=== PATIENT | female | born 1955 | race Caucasian/White ===

== ENCOUNTER 2017-01-29 18:06 | Emergency (ER) | payer BC ==
[~2017-01-29] VITALS: Ht 167.6 cm; Wt 99.8 kg
[2017-01-29] MEDS ORDERED: NAPR375T3 (18:45)
[2017-01-29] MEDS ORDERED: OXYB5TAB9 (18:45)
[2017-01-29] MEDS ORDERED: PANT40TA3 (18:45)
--- NOTE | 2017-01-29 19:57 | ED Lower Extremity ---
General Chief Complaint: Lower Extremity Stated Complaint: L KNEE WEAKNESS/PAIN Nursing Triage Note: TO ED PER W/C FOR LAST 2 DAYS HAS HAD KNEE PAIN L TODAY GOT OUT OF CHAIR AND FELT A POP IN KNEE PAINFUL TO PUT WT ON IT. Nursing Sepsis Screen: No Definite Risk Source: patient Exam Limitations: no limitations (Stat echo) History of Present Illness Time seen by provider: 19:56 Initial Comments Pain and popping sensation to the left knee for the past 2 days worse than usual. Has seen Dr. Escalera at [facility] [address] [place] [address] for this remotely.. No injury. Onset: just prior to arrival Severity: moderate Pain/Injury Location: left knee Modifying Factors: Worse With Movement Allergies and Home Medications Allergies Coded Allergies: No Known Drug Allergies (Unverified , 01/29/17) Home Medications Naproxen 375 Mg Tablet, #60 (Reported) Oxybutynin Chloride 5 Mg Tablet, #60 (Reported) Pantoprazole Sodium 40 Mg Tablet.dr, #30 (Reported) Constitutional: see HPI EENTM: see HPI Respiratory: no symptoms reported Cardiovascular: no symptoms reported Genitourinary: no symptoms reported Musculoskeletal: see HPI Skin: no symptoms reported Psychiatric/Neurological: No Symptoms Reported Past Xkehwvm-Ajtcbc-Bpezwt Hx Patient Social History Alcohol Use: Denies Use Recreational Drug Use: No Smoking Status: Never a Smoker Recent Foreign Travel: No Contact w/Someone Who Travel: No Recent Infectious Disease Expo: No Seasonal Allergies Seasonal Allergies: No Surgeries Surgeries: Hysterectomy, Orthopedic Physical Exam Vital Signs Vital Sign - Last 12Hours 01/29/17 18:27 Temp 98.2 Pulse 89 Resp 18 B/P (MAP) 176/101 Pulse Ox 98 O2 Delivery Room Air Capillary Refill : Less Than 3 Seconds General Appearance: WD/WN, no apparent distress HEENT: PERRL/EOMI, normal ENT inspection Neck: non-tender, full range of motion Respiratory: no respiratory distress, no accessory muscle use Gastrointestinal: normal bowel sounds, non tender, soft Hips: bilateral hip non-tender, bilateral hip normal inspection, bilateral hip normal range of motion Legs: bilateral leg non-tender, bilateral leg normal inspection, bilateral leg normal range of motion Knees: left knee pain, left knee other (no swelling or erythema.) Ankles: bilateral ankle non-tender, bilateral ankle normal inspection, bilateral ankle normal range of motion Neurologic/Psychiatric: alert, normal mood/affect, oriented x 3 Skin: normal color, warm/dry Progress/Results/Core Measures Results/Orders My Orders Orders - GABE MOCK APRN Knee, Left, 3 Views (01/29/17 18:56) Us Venous Lower Ext Lt (01/29/17 19:57) Immobilizer Knee St 24 In (01/29/17 20:42) Vital Signs/I&O Vital Sign - Last 12Hours 01/29/17 18:27 Temp 98.2 Pulse 89 Resp 18 B/P (MAP) 176/101 Pulse Ox 98 O2 Delivery Room Air Blood Pressure Mean: 126 Diagnostic Imaging Diagonstic Imaging: Xray Comments NAME: [facility] REC#: [id number] PT STATUS: REG ER : 1955 PHYSICIAN: GABE MOCK APRN ADMIT DATE: 01/29/17/ER Draft Date of Exam:01/29/17 KNEE, LEFT, 3 VIEWS Indication: Patient felt a "pop" in the left knee. Findings: Three views of the left knee demonstrate no fracture, dislocation or joint effusion. Osteophytes are present in all 3 compartments with joint space narrowing in the medial compartment. There appears to be a small cortical defect in the femoral condyle, best seen on the lateral view. This is probably within the medial condyle. Impression: There are degenerative changes of the left knee but no acute findings. A cortical defect is present in the femoral condyle. Dictated on workstation # [id number] Dict: 01/29/171946 Trans: 01/29/171953 [facility] [id number] Interpreted by: TESSA SHIRLEY MD Electronically signed by: Departure Impression Impression: Primary Impression: Internal derangement of left knee Disposition: 01 HOME, SELF-CARE Condition: Stable Departure-Patient Inst. Decision time for Depature: 19:58 Referrals: NO,LOCAL PHYSICIAN (PCP/Family) Primary Care Physician Patient Instructions: Chronic Knee Pain, Knee Immobilizer (DC), Knee Pain Add. Discharge Instructions: 1. Call Dr. Escalera tomorrow to make an appointment to be seen by either him or a nurse practitioner for further evaluation of your knee as this may require an MRI. Wear the knee immobilizer anytime you're up moving around. All discharge instructions reviewed with patient and/or family. Voiced understanding. Scripts Hydrocodone/Acetaminophen ([place]ander 5-325 Tablet) 1 Each Tablet 1 EACH PO Q4H, #20 TAB Prov: GABE MOCK APRN 01/29/17 Copy Copies To 1: ADRIANA ESCALERA PETER J APRN January 29, 2017 19:57
[2017-01-29] MEDS ORDERED: HYDR-757 PO (20:51)
[2017-01-29] MEDS ORDERED: HYDROcodone/APAP 5 MG/325 MG (LORTAB) TAB PO ONE (21:00)
--- NOTE | 2017-01-29 21:05 | Diagnostic Imaging Report ---
PROCEDURE: US left lower extremity venous. TECHNIQUE: Multiple real-time grayscale images were obtained over the left lower extremity in various projections. Additional duplex Doppler and color Doppler images were also obtained. INDICATION: Left lower extremity pain. Patient reportedly had a DVT 10 years ago. COMPARISON STUDIES: None. FINDINGS: Exam demonstrates no evidence of a DVT. Greater saphenous vein is patent. No fluid collections are seen. IMPRESSION: Negative left lower extremity venous Doppler. Dictated by: Dictated on workstation # [id number]
[2017-01-29 21:18] VITALS: BP 169/99
== END 2017-01-29 21:18 | disposition home or self-care (01) ==
LOC: EDUNIT# 18:06 → ER 18:09
DX: M23.92 Unspecified internal derangement of left knee (principal); M17.12 Unilateral primary osteoarthritis, left knee
CPT/HCPCS: 73562; 99283

== ENCOUNTER → 2017-04-08 | Outpatient (CLI) | payer BC ==
[~2017-04-08] MED LIST: HYDR-757 PO; NAPR375T3; OXYB5TAB9; PANT40TA3
[2017-04-08 15:02] LABS: BASOPHILS % (AUTO) 1 % (0-10); EOSINOPHILS # (AUTO) 0.2 10^3/uL (0.0-0.3); EOSINOPHILS % (AUTO) 4 % (0-10); LYMPHOCYTES # (AUTO) 2.4 X 10^3 (1.0-4.0); LYMPHOCYTES % (AUTO) 39 % (12-44); MEAN CORPUSCULAR HEMOGLOBIN 32 PG (25-34); MEAN CORPUSCULAR HGB CONC 34 G/DL (32-36); MEAN CORPUSCULAR VOLUME 96 FL (80-99); MEAN PLATELET VOLUME 10.8 FL (7.4-10.4); MONOCYTES # (AUTO) 0.4 X 10^3 (0.0-1.0); MONOCYTES % (AUTO) 7 % (0-12); NEUTROPHILS % (AUTO) 50 % (42-75); PLATELET COUNT 207 10^3/uL (130-400); RED BLOOD COUNT 4.32 10^6/uL (4.35-5.85); RED CELL DISTRIBUTION WIDTH 12.5 % (10.0-14.5)
[2017-04-08 15:24] LABS: ALANINE AMINOTRANSFERASE 13 U/L (0-55); ANION GAP 9 MMOL/L (5-14); ASPARTATE AMINO TRANSFERASE 16 U/L (5-34); BILIRUBIN,TOTAL 0.8 MG/DL (0.1-1.0); BLOOD UREA NITROGEN 20 MG/DL (7-18); BUN/CREATININE RATIO 28; CALCIUM 9.3 MG/DL (8.5-10.1); CARBON DIOXIDE 23 MMOL/L (21-32); CHLORIDE 108 MMOL/L (98-107); CREATININE SERUM 0.72 MG/DL (0.60-1.30); GFR ESTIMATED > 60; GLUCOSE 85 MG/DL (70-105); POTASSIUM 3.8 MMOL/L (3.6-5.0); SODIUM 140 MMOL/L (135-145)
[2017-04-09 12:25] LABS: FACTOR 5 (LEIDEN) MUTATION Heterozygous (Negative)
[2017-04-09 13:58] LABS: VON WILLEBRAND FACTOR ANTIGEN 130 % (50-160)
[2017-04-09 13:59] LABS: FACTOR 5 LEIDEN INTERP See Footnote
== END ==
LOC: LAB 14:39
PROVIDERS: ATTEND Nurse Practitioner Family
DX: Z01.812 Encounter for preprocedural laboratory examination (principal); Z86.718 Personal history of other venous thrombosis and embolism
CPT/HCPCS: 36415; 80053; 81241; 85025; 85246; 85302; 85305

== ENCOUNTER 2017-05-16 11:37 | Outpatient (CLI) | payer BC, OTHER ==
[~2017-05-16] VITALS: Ht 167.6 cm; Wt 98.9 kg
[~2017-05-16 11:37] MED LIST changes: -NAPR375T3; +NAPR375T3 PO; -OXYB5TAB9; +OXYB5TAB9 PO; -PANT40TA3; +PANT40TA3 PO
[2017-05-16 11:45] VITALS: BP 134/90
[2017-05-16] MEDS ORDERED: ENOX40DI13 SQ (11:48)
[2017-05-16 12:28] LABS: BASOPHILS # (AUTO) 0.1 10^3/uL (0.0-0.1); BASOPHILS % (AUTO) 1 % (0-10); EOSINOPHILS # (AUTO) 0.2 10^3/uL (0.0-0.3); EOSINOPHILS % (AUTO) 3 % (0-10); LYMPHOCYTES # (AUTO) 2.2 X 10^3 (1.0-4.0); LYMPHOCYTES % (AUTO) 39 % (12-44); MEAN CORPUSCULAR HEMOGLOBIN 33 PG (25-34); MEAN CORPUSCULAR HGB CONC 35 G/DL (32-36); MEAN CORPUSCULAR VOLUME 96 FL (80-99); MEAN PLATELET VOLUME 10.8 FL (7.4-10.4); MONOCYTES # (AUTO) 0.4 X 10^3 (0.0-1.0); MONOCYTES % (AUTO) 8 % (0-12); NEUTROPHILS # (AUTO) 2.8 X 10^3 (1.8-7.8); NEUTROPHILS % (AUTO) 49 % (42-75); PLATELET COUNT 204 10^3/uL (130-400); RED BLOOD COUNT 4.32 10^6/uL (4.35-5.85); RED CELL DISTRIBUTION WIDTH 12.3 % (10.0-14.5); WHITE BLOOD COUNT 5.6 10^3/uL (4.3-11.0)
[2017-05-16 12:32] LABS: BILIRUBIN,URINE NEGATIVE (NEGATIVE); KETONES,URINE NEGATIVE (NEGATIVE); LEUKOCYTE ESTERASE ,URINE 1+ (NEGATIVE); NITRITE,URINE POSITIVE (NEGATIVE); PH,URINE 6 (5-9); PROTEIN,URINE NEGATIVE (NEGATIVE); UROBILINOGEN,URINE NORMAL (NORMAL)
[2017-05-16 12:43] LABS: INR 0.9 (0.8-1.4); PROTHROMBIN TIME PATIENT 12.5 SEC (12.2-14.7)
[2017-05-16 12:53] LABS: ALANINE AMINOTRANSFERASE 13 U/L (0-55); ANION GAP 7 MMOL/L (5-14); ASPARTATE AMINO TRANSFERASE 15 U/L (5-34); BILIRUBIN,TOTAL 0.6 MG/DL (0.1-1.0); BLOOD UREA NITROGEN 19 MG/DL (7-18); BUN/CREATININE RATIO 23; CALCIUM 9.2 MG/DL (8.5-10.1); CARBON DIOXIDE 28 MMOL/L (21-32); CHLORIDE 105 MMOL/L (98-107); CREATININE SERUM 0.81 MG/DL (0.60-1.30); GFR ESTIMATED > 60; GLUCOSE 100 MG/DL (70-105); POTASSIUM 3.7 MMOL/L (3.6-5.0); SODIUM 140 MMOL/L (135-145); TOTAL PROTEIN 7.1 GM/DL (6.4-8.2)
--- NOTE | 2017-05-16 13:01 | Diagnostic Imaging Report ---
PA and lateral views of the chest Indication: Preoperative evaluation Findings: The lungs are clear. The heart size is normal. There is no effusion or pneumothorax The mediastinum and araceli appear unremarkable. Impression: Unremarkable study. Dictated by: Dictated on workstation # [id number]
[2017-05-16 13:03] LABS: ERYTHROCYTE SEDIMENTATION RATE 7 MM/HR (0-30)
== END 2017-05-16 12:30 | disposition home or self-care (01) ==
LOC: PREOP 11:37
PROVIDERS: ATTEND Orthopaedic Surgery
DX: Z01.812 Encounter for preprocedural laboratory examination (principal); Z01.811 Encounter for preprocedural respiratory examination; M17.12 Unilateral primary osteoarthritis, left knee; R53.83 Other fatigue
CPT/HCPCS: 36415; 71020; 80053; 81000; 85025; 85610; 85652; 86850; 86870; 86900; 86901; 87081; 87088; 93005

== ENCOUNTER 2017-05-22 06:00 | Inpatient (IN) | payer BC, OTHER ==
--- NOTE | 2017-05-14 13:25 | HISTORY AND PHYSICAL ---
DATE OF SERVICE: LAST-FOUR SOCIAL SECURITY: 4636 REASON FOR ADMISSION: Inpatient admission on 05/22/2017 left total knee arthroplasty. HISTORY OF PRESENT ILLNESS: The patient is a 62-year-old female with progressive worsening left knee pain. She reports activity limitations because of the knee. She denies back pain. She denies hip pain. She denies paresthesias due to functional impairment and failure to improve with conservative measures. The patient has elected to proceed with surgical intervention. REVIEW OF SYSTEMS: No chest pain, no shortness of breath, no dysuria. PAST MEDICAL HISTORY: 1. Blood clots. 2. Reflux. 3. Knee pain. PAST SURGICAL HISTORY: 1. Left fifth finger pinning with partial amputation. 2. Hysterectomy. FAMILY HISTORY: Significant for lung cancer. PRIMARY CARE PROVIDER: Dr. Monson. MEDICATIONS: 1. Pantoprazole. 2. Oxybutynin. 3. Naprosyn. ALLERGIES: No known allergies. SOCIAL HISTORY: The patient denies alcohol and tobacco use. PHYSICAL EXAMINATION: GENERAL: The patient is a well developed, well nourished, in no acute distress. HEENT: Normocephalic, atraumatic. Pupils are equal, round and reactive to light. Oropharynx is clear. NECK: Supple, no lymphadenopathy. LUNGS: Clear to auscultation bilaterally. HEART: Regular rate and rhythm. ABDOMEN: Soft, nontender and nondistended. EXTREMITIES: The left knee demonstrates range of motion 0/3/125. There is no varus, valgus laxity and negative anterior and posterior drawer. There are no skin lesions noted. She needs assistance to arise from seated position. She is ambulatory with an antalgic gait. IMPRESSION: Left knee osteoarthritis. PLAN: Left total knee arthroplasty. The risks, benefits, options, ramifications and recovery have been discussed at length with the patient. She understands and wishes to proceed. Job ID: [id number] DocumentID: [id number] Dictated Date: 05/14/2017 11:54:13 Rn Clinical Research Date: 05/14/2017 12:50:09 Dictated By: NIALL WEBER MD
[~2017-05-22] VITALS: Ht 167.6 cm; Wt 98.9 kg
[~2017-05-22 06:00] MED LIST changes: +ENOX40DI13 SQ
[2017-05-22] MEDS ORDERED: NS (IVPB) 50 ML ONE (06:34)
[2017-05-22] MEDS ORDERED: CEFUROXIME 1.5 GM (ZINACEF) VIAL ONE (06:34)
[2017-05-22] MEDS ORDERED: FAMOTIDINE 20MG/2ML IV (PEPCID) ONE (06:34)
[2017-05-22] MEDS ORDERED: FAMOTIDINE 20MG/2ML IV (PEPCID) IV ONE (06:45)
[2017-05-22] MEDS: LACTATED RINGERS 1,000 ML IV PRN ×2 (06:51→08:45)
[2017-05-22] MEDS ORDERED: SEVOFLURANE (ULTANE) 15 ML INHAL SOLN ONE ×6 (06:53→08:51)
[2017-05-22] MEDS ORDERED: proPOfol 200 MG/20 ML (DIPRIVAN) VIAL IV ONE (06:53)
[2017-05-22] MEDS ORDERED: ROCURONIUM 50 MG/5 ML (ZEMURON) VIAL IV ONE (06:53)
[2017-05-22] MEDS ORDERED: MIDAZOLAM 2 MG/2 ML (VERSED) VIAL ONE (06:53)
[2017-05-22] MEDS ORDERED: LIDOCAINE PF 2% 5 ML (XYLOCAINE) VIAL ONE (06:53)
[2017-05-22] MEDS ORDERED: LACTATED RINGERS 1,000 ML IV ONE ×2 (06:53→08:51)
[2017-05-22] MEDS ORDERED: ONDANSETRON 4 MG/2 ML (SDV) Z0FRAN ONE (06:53)
[2017-05-22] MEDS ORDERED: fentaNYL INJECTION 250 MCG/5 ML AMP ONE (06:54)
[2017-05-22 06:59] VITALS: BP 138/78
[2017-05-22] MEDS ORDERED: CEFUROXIME 1.5 GM/NS 50 ML IVPB IV ONE ×2 (07:00)
[2017-05-22] MEDS ORDERED: ACETAMINOPHEN 325 MG TABLET/CAPLET (TYLENOL) PO PRN (07:15)
[2017-05-22] MEDS ORDERED: ONDANSETRON 4 MG/2 ML (SDV) Z0FRAN IVP PRN ×2 (07:15→09:30)
[2017-05-22] MEDS ORDERED: diphenhydrAMINE 50 MG/ML INJ (BENADRYL) IVP PRN (07:15)
--- NOTE | 2017-05-22 07:25 | Progress Note-Pre Operative ---
Pre-Operative Progress Note H&P Reviewed The H&P was reviewed, patient examined and no changes noted. Date Seen by Provider: May 22, 2017 Time Seen by Provider: 07:15 Date H&P Reviewed: May 22, 2017 Time H&P Reviewed: 07:11 Pre-Operative Diagnosis: left knee primary osteoarthritis NIALL WEBER MD May 22, 2017 07:25
--- NOTE | 2017-05-22 07:26 | Progress Note-Post Operative ---
Post-Operative Progess Note Surgeon (s)/Shrimping Boat Captain (s) Surgeon NIALL WEBER MD Shrimping Boat Captain: blake Simons Pre-Operative Diagnosis left knee primary osteoarthritis Post-Operative Diagnosis left knee primary osteoarthritis Procedure & Operative Findings Date of Procedure 05/22/17 Procedure Performed/Findings left total knee arthroplasty Anesthesia Type GETA Estimated Blood Loss Estimated blood loss (mL): minimal Specimens/Packing Specimens Removed none Packing: none NIALL WEBER MD May 22, 2017 07:25
[2017-05-22] MEDS ORDERED: INTRA-ARTICULAR INJ ONE ×5 (07:30)
[2017-05-22] MEDS ORDERED: HYDROmorphone (DILAUDID) 2 MG/ML VIAL ONE (08:12)
[2017-05-22] MEDS ORDERED: morphine INJ 10 MG/ML 1ML (SYR OR VIAL) ONE ×2 (08:12→08:50)
[2017-05-22] MEDS: morphine INJ 10 MG/ML 1ML (SYR OR VIAL) IVP PRN ×2 (09:05→09:38)
[2017-05-22] MEDS ORDERED: HYDROmorphone (DILAUDID) 2 MG/ML VIAL IVP PRN (09:30)
[2017-05-22] MEDS ORDERED: MEPERIDINE (DEMEROL) INJ 50 MG/ML IVP PRN (09:30)
--- NOTE | 2017-05-22 10:02 | D/C HH Face to Face Order ---
D/C Face to Face Orders Instructions for Patient Patient Instructions/FollowUp: 3 weeks Physician to follow Patient: 3 weeks Discharge Diet for Home: Regular Diet Patient Data-Allergies,Ht & Wt Patient Allergies: Coded Allergies: No Known Drug Allergies (Unverified , 01/29/17) Height (Feet): 5 Height (Inches): 6.00 Weight (Pounds): 218 Weight (Ounces): 0.0 Home Health Need/Face to Face Date of Face to Face: May 22, 2017 Clinical Findings: Pain with ambulation I have seen Pt [id number]: Yes Discharged To: Home Diagnosis/Conditions: left total knee arthroplasty Problems/Diagnosis/Condition: Patient is Homebound due to: Pain w/ambulation Homebound Status Due to the above stated illness, injury or surgical procedure (medical condition or diagnosis) and associated clinical findings, the patient is homebound because of his/her inability to leave home except with aid of a supportive device and/or person AND leaving the home requires a considerable and taxing effort or is medically contraindicated. Pt req the following assistanc: Walker Home Health Nursing Orders Home Health Services Order: Physical Therapy-Evaluate & Treat Home Health Infusion Therapy Site Location: Wrist Therapy Orders Therapy Orders: Physical Therapy Therapy Specific Orders: Eval assistive deivces, Teach enviro modifications/ safety, Gait training, Increase strength/endurance, Restore ROM Certify Stmt I certify that this patient is under my care and that I, a nurse practitioner or a physician; a regulatory affairs assistant working with me, had a face to face encounter that - meets the physician face to face encounter requirements with this patient as dated. NIALL WEBER MD May 22, 2017 10:02
--- NOTE | 2017-05-22 10:35 | Diagnostic Imaging Report ---
INDICATION: Postoperative. TECHNIQUE: 2 post operative radiographs of the knee 9:35 AM CORRELATION STUDY: None FINDINGS: There are postsurgical changes of a total knee arthroplasty. Alignment is anatomic. Installed hardware appearing unremarkable. Overlying soft tissue gas collections and drainage tubing is present. IMPRESSION: Postsurgical changes of a left total knee arthroplasty. Dictated by: Dictated on workstation # [id number]
--- NOTE | 2017-05-22 10:54 | Progress Note-Standard ---
Standard Progress Note Progress Notes/Assess & Plan Date Seen by Provider: May 22, 2017 Time Seen by Provider: 10:52 Progress/Assessment & Plan Post op check Patient comfortable Radiographs HW well positioned without fracture LLE--intact DF and PF of toes and ankle. Sensation intact throughout. pulses equal with brisk cap refill s/p LTKA doing well mobilize as able NIALL WEBER MD May 22, 2017 10:54
[2017-05-22 12:00] VITALS: BP 122/72
[2017-05-22] MEDS: SENNA W/DOCUSATE (SENOKOT S) TABLET PO SCH ×2 (12:04→21:27)
[2017-05-22] MEDS: NS IV 1000 ML 1,000 ML IV SCH ×3 (12:29→23:40)
[2017-05-22] MEDS: morphine PCA 30 MG/30 ML VIAL IV PRN (12:30)
--- NOTE | 2017-05-22 14:25 | Physical Therapy Evaluation ---
PT Evaluation-General Medical Diagnosis Admission Date May 22, 2017 at 06:00 Medical Diagnosis: Left total knee arthroplasty Onset Date: May 22, 2017 Therapy Diagnosis Therapy Diagnosis: impaired mobility, endurance, ROM Height/Weight Height (Feet): 5 Height (Inches): 6.00 Weight (Pounds): 218 Weight (Ounces): 0.0 Precautions Precautions/Isolations: Fall Prevention, Standard Precautions Weight Bear Status Weight Bearing Restriction: Weight Bearing/Tolerated Location Restriction: L LE Referral Physician: Arben Simons APRN Reason for Referral: Evaluation/Treatment Medical History Additional Medical History Hx of blood clots, reflux, knee pain bilaterally L>R. Surgeries: Left fifth finger pinning and partial amputation, Hysterectomy Current History Pt underwent left TKA this morning for progressively worsening knee pain. Reviewed History: Yes Social History Home: Single Level Current Living Status: Alone Entry Into Home: Stairs With Railing PT Steps Into Home: 7 PT Steps Inside Home: 0 Pt has daughter who lives nearby and will assist with recovery. Prior/Core FIM Prior Level of Function Functional [place] Measure 0=Not Assessed/NA 4=Minimal Assistance 1=Total Assistance 5=Supervision or Setup 2=Maximal Assistance 6=Modified [place] 3=Moderate Assistance 7=Complete [place] Bed Mobility: 7 Transfers (B,C,W/C) (FIM): 7 Gait: 7 Locomotion: 7 PT Evaluation-Current Subjective Pt was laying in bed prior to tx and agreeable to PT. Pt reports no pain. Pt was lying in bed with CPM machine on, post tx with nurse call, phone, tray in reach, all needs met post tx. Pain Numeric Pain Scale: 0-No Pain Location: No Pain Reported Pt/Family Goals To return home with independence with mobility. Objective Patient Orientation: Normal For Age Attachments: IV ROM/Strength ROM Lower Extremities Left knee (80 degrees flexion, lacking 5 degrees of extension) Strenght Lower Extremities not tested due to surgery Integumentary/Posture Integumentary refer to nursing note Bowel Incontinence: No Bladder Incontinence: No Neuromuscular (Tone, Coordination, Reflexes) not tested Sensory Vision: Wears Glasses Hearing: Functional Sensation Right Lower Extremit: Intact Sensation Left Lower Extremity: Intact Sensation Lower Extremities Pt reports slight numbness and tingling throughout L LE but still has intact light touch Transfers Functional [place] Measure 0=Not Assessed/NA 4=Minimal Assistance 1=Total Assistance 5=Supervision or Setup 2=Maximal Assistance 6=Modified [place] 3=Moderate Assistance 7=Complete [place] Transfers (B, C, W/C) (FIM): 5 Scootin Rollin Supine to/from Sit: 5 Sit to/from Stand: 4 Pt completes bed mobility (scooting, rolling, supine<>sit) with stand by assist for safety. Pt completes sit<>stand with CGA for safety. Gait Mode of Locomotion: Walk Anticipated Mode of Locomotion: Walk Gait (FIM): 1 Distance (FIM): 1=up to 49 ft Distance: 15'x2 Gait Level of Assist: 4 Gait Persons Needed: 1 Gait Assistive Device: FWW Comments/Gait Description Pt ambulates with FWW and CGA for safety. Pt appears to be steady with gait. She does have pain with ambulation and has an antalgic gait with decreased knee flexion and heel strike. Stairs If not tested on admit;explain Unsafe to attempt Balance Sitting Static: Good Sitting Dynamic: Good Standing Static: Fair Standing Dynamic: Fair Treatment Pt completes bed mobility, transfers, and gait training. Pt was educated on WBS and expectations regarding her recovery. Pt completes supine exercises (SAQ, HS , AP, SLR, QS)x10 for functional LE strengthening and ROM. Pt was set up in CPM set to -2 degrees of extension and 60 degrees flexion, was instructed to stay in CPM for approximately 6 hours a day. Assessment/Needs Pt is doing well post-operatively. Pt has impairments with gait, transfers, bed mobility, and balance. Rehab Potential: Good PT Short Term Goals Short Term Goals Time Frame: May 29, 2017 Transfers (B,C,W/C) (FIM): 6 Gait (FIM): 5 Distance (FIM): 3=150 ft Gait Distance Comment: 150' Gait Level of Assist: 5 Gait Assistive Device: FWW PT Plan Problem List Problem List: Activity Tolerance, Functional Strength, Safety, Balance, Gait, Transfer, Bed Mobility, ROM Treatment/Plan Treatment Plan: Continue Plan of Care Treatment Plan: Bed Mobility, Education, Functional Activity Nella, Functional Strength, Gait, Safety, Therapeutic Exercise, Transfers Treatment Duration: May 29, 2017 Frequency: 11 times per week Estimated Hrs Per Day: .25 hour per day (15-30 min) Patient and/or Family Agrees t: Yes Safety Risks/Education Patient Education: Gait Training, Transfer Techniques, Reviewed Precautions, Correct Positioning, Safety Issues Teaching Recipient: Patient Teaching Methods: Demonstration, Discussion Response to Teaching: Verbalize Understanding, Reinforcement Needed Discharge Recommendations Plan Pt treatment will include therapeutic exercises to increase strength and ROM, bed mobility, transfer and gait training, and education on safety issues. Therapy D/C Recommendations: Home w/ Family Support Equpiment Recommendations-D/C: Front Wheeled Walker Time/GCodes Time In: 1350 Time Out: 1417 Total Billed Treatment Time: 27 Total Billed Treatment 1 visit EVL 15' GT 12' ASHA BAKER PT May 22, 2017 14:25
--- NOTE | 2017-05-22 15:14 | OPERATIVE REPORT ---
DATE OF SERVICE: 05/22/2017 PREOPERATIVE DIAGNOSIS: Left knee primary osteoarthritis. POSTOPERATIVE DIAGNOSIS: Left knee primary osteoarthritis. PROCEDURE: Left total knee arthroplasty. SURGEON: Dr. Weber. SENIOR UI DESIGNER: JEFERSON Rose, who assisted throughout the procedure and closed the incision. ANESTHESIA: General endotracheal by Jorge Luis , DAR. TOURNIQUET TIME: Approximately 70 minutes at 300 mmHg. ESTIMATED BLOOD LOSS: Minimal. DRAINS: None. COMPLICATIONS: None. POSTOPERATIVE PLAN: Retained protocol. MATERIALS: MicroPort, cemented size 5 femur, cemented size 5 tibia with a 10-mm insert and cemented size 32 patella button. The patient was transported to the recovery room, awake and in stable condition. STATEMENT OF MEDICAL NECESSITY: The patient is a 62-year-old female with longstanding progressive left knee pain. Radiographs reveal complete loss of medial and patella femoral joint spaces. She had undergone treatment with injections, anti-inflammatories and rest without relief and due to functional impairment with progressive symptoms the patient elected to proceed with surgical intervention. PROCEDURE: After risks and benefits of the procedure were discussed and questions were answered and informed consent was signed and placed on the chart, the operative site was confirmed in the preoperative holding area and initialed by the surgeon. The patient was then transported to the operating room and after adequate levels of general endotracheal anesthetic were obtained, a timeout was called confirming the operative site. The left lower extremity was then prepped and draped in the usual sterile fashion with the leg elevated. The tourniquet was inflated to 300 mmHg. A standard anterior approach was utilized. Hemostasis was obtained with cautery. A medial parapatellar arthrotomy was performed leaving a 1 cm cuff for later reattachment. A portion of the fat pad was resected. A subperiosteal release was performed of the proximal media tibia being careful to stay on the bony surface. The ACL was resected. The intramedullary guide was passed into the femur. The distal cutting block was placed and the distal cut was made. The femur was sized to a size 5. The 5 cutting block was placed parallel to the epicondylar axis and cuts were made from posterior to anterior. The subperiosteal release was then carefully performed of the posterior distal femur being careful to stay on the bony surface. An intramedullary guide was then passed into the tibia. The cutting block was placed. The drop severino transected the intermalleolar axis and the cut was made. The base plate was placed and the drop severino transected the intermalleolar axis. This was prepared with a drill and keel punch. The femoral trial prosthesis was placed and the trochlear cut was made. The patella was then prepared by resecting 10 mm off the undersurface. A peg guide was placed and peg holes were drilled. The trials were inserted with a 10 mm insert and a 32 patella button. The knee was taken through range of motion. Full extension was easily obtained, and 120 degrees of flexion with gravity was easily obtained. There was no anterior/posterior or medial/lateral laxity in flexion or extension. The patella tracked well. The trials were removed. The joint was irrigated with pulse lavage. The para-articular block was placed in the posterior capsule, medial and lateral retinaculum and extensor mechanisms. The bone ends were irrigated and dried. The tibial base plate was cemented into position and excessive cement was removed. The superior surface was irrigated and dried and the polyethylene insert was placed. The distal femur was irrigated and dried, and the femoral prosthesis was cemented into position. Excessive cement was removed. The knee was brought into full extension and held until the cement had cured. The undersurface of the patella was irrigated and dried, and the patellar button was cemented into position. Excessive cement was removed. Once the cement had cured, the knee was taken through range of motion. Full extension was easily obtained to 120 degrees of flexion with gravity was easily obtained. The patella tracked well. There was no anterior/posterior or medial/lateral laxity in flexion or extension. The joint was further irrigated with pulse lavage. The arthrotomy was closed with #2 Tevdek in [id number] interrupted fashion. The knee was flexed with no new tension at the repair site. Subcutaneous tissues were irrigated using a total of 6 liters throughout the procedure. There was 0 Vicryl used for deep subcutaneous tissue, 2-0 Vicryl was used to reapproximate subcutaneous tissues. [place] were used on the skin. A soft dressing was applied. The tourniquet was deflated and the patient was transported to the recovery room awake and in stable condition. Job ID: [id number] DocumentID: [id number] Dictated Date: 05/22/2017 09:12:15 Application Developer Manager Date: 05/22/2017 15:13:43 Dictated By: NIALL WEBER MD
[2017-05-22] MEDS: CEFUROXIME INJECTION 750 MG in NS (IVPB) 50 ML IV SCH ×2 (16:03→23:40)
[2017-05-22 16:55] VITALS: BP 121/75
--- NOTE | 2017-05-22 18:43 | Consultation ---
History of Present Illness History of Present Illness Patient Consulted On(everton/time) 05/22/17 18:39 Date Seen by Provider: May 22, 2017 Time Seen by Provider: 18:45 Reason for Visit: LEFT KNEE REPLACEMENT History of Present Illness PT IS A 62 Y/O FEMALE WHO IS KNOWN TO ME FROM CLINIC. SHE HAS HISTORY OF CHRONIC KNEE PAIN WITH INCREASING DISCOMFORT. SHE HAS BEEN ADMITTED FOR LEFT KNEE REPLACEMENT - WHICH WAS UNDERTAKEN THIS MORNING BY DR. WEBER. THIS CONSULTATION IS FOR MEDICAL MANAGEMENT OF PATIENT WHILE IN THE HOSPITAL. Allergies and Home Medications Allergies Coded Allergies: No Known Drug Allergies (Unverified , 01/29/17) Home Medications Enoxaparin Sodium 40 Mg/0.4 Ml Syringe, 40 MG SQ Q12H, (Reported) Naproxen 375 Mg Tablet, 375 MG PO BID, (Reported) hold until after surgery Oxybutynin Chloride 5 Mg Tablet, 5 MG PO DAILY, (Reported) prescribed BID but only take daily Pantoprazole Sodium 40 Mg Tablet.dr, 40 MG PO DAILY, (Reported) Past [id number] Hx Patient Social History Alcohol Use: Denies Use Recreational Drug Use: No Smoking Status: Never a Smoker Recent Foreign Travel: No Contact w/Someone Who Travel: No Recent Infectious Disease Expo: No Seasonal Allergies Seasonal Allergies: No Surgeries History of Surgeries: Yes (cysoscopy, kidney bx, ) Surgeries: Hysterectomy, Orthopedic Respiratory History of Respiratory Disorde: No Currently Using CPAP: No Currently Using BIPAP: No Cardiovascular History of Cardiac Disorders: No Neurological History of Neurological Disord: No Genitourinary History of Genitourinary Disor: Yes (hx of WBC in urine-tested no reason found) Gastrointestinal History of Gastrointestinal Di: No Musculoskeletal History of Musculoskeletal Dis: Yes (dvt behind both knees) Musculoskeletal Disorders: Arthritis Endocrine History of Endocrine Disorders: No HEENT History of HEENT Disorders: No Cancer History of Cancer: No Psychosocial History of Psychiatric Problem: No Integumentary History of Skin or Integumenta: No Blood Transfusions History of Blood Disorders: Yes (FACTOR V LEIDEN ) Family Medical History Significant Family History: Heart Disease, Cancer, COPD Family Medial History: Arthritis 19 MOTHER Respiratory disorder 19 FATHER (lung cancer) Review of Systems-General Constitutional: No dizziness, No fever, No malaise EENTM: No hoarseness, No mouth pain, No throat pain Respiratory: No cough, No dyspnea on exertion Cardiovascular: No chest pain, No palpitations Gastrointestinal: No abdominal pain, No constipation, No nausea, No vomiting Genitourinary: frequency Musculoskeletal: other (PAIN IN LEFT KNEE) Skin: no symptoms reported Psychiatric/Neurological: No Symptoms Reported All Other Systems Reviewed Negative Unless Noted: Yes Physical Exam-General Problems Physical Exam Vital Signs Vital Sign - Last 12Hours 05/22/17 06:59 Temp 97.7 Pulse 67 Resp 16 B/P (MAP) 138/78 Pulse Ox 95 O2 Delivery Room Air Capillary Refill : General Appearance: WD/WN, no apparent distress Eyes: Bilateral Eye Normal Inspection, Bilateral Eye PERRL, Bilateral Eye EOMI HEENT: PERRL/EOMI, pharynx normal Neck: non-tender, full range of motion, supple Respiratory: chest non-tender, lungs clear, normal breath sounds Cardiovascular: regular rate, rhythm Gastrointestinal: normal bowel sounds, non tender, soft, no organomegaly, no pulsatile mass Back: normal inspection, no vertebral tenderness Extremities: other (LEFT LEG IN COMPRESSION, POLAR PACK IN PLACE) Neurologic/Psychiatric: pier hand II-XII nml as tested, alert, normal mood/affect Skin: warm/dry Lymphatic: no adenopathy Assessment/Plan Assessment/Plan Admission Diagnosis/Plan LEFT KNEE REPLACEMENT GERD URGE INCONTINENCE FACTOR V LEIDEN DEFICIENCY PT WAS ADMITTED TO THE HOSPITAL, UNDERWENT A TOTAL LEFT KNEE REPLACEMENT THIS MORNING. SHE WILL START PHYSICAL THERAPY FOR STRENGTHENING. MOST LIKELY WILL BENEFIT FROM THERAPY OUTPATIENT - WILL NEED HOME HEALTH FOR A SHORT TIME, THEN TRANSITION TO OUTPATIENT THERAPY. GERD - RESTART PPI URGE INCONTINENCE - RESTART OXYBUTYNIN FACTOR V LEIDEN DEFICIENCY - CHRONIC - CONTINUE WITH LOVENOX WHILE IN HOSPITAL. WILL NEED TO CONSIDER XARELTO (10MG DAILY X 2 WEEKS) ON DISCHARGE PROPHYLAXIS AGAINST DVT VERSUS STARTING ON COUMADIN FOR A SHORT DURATION OUTPATIENT WHILE RECOVERING FROM KNEE SURGERY. I APPRECIATE THE CONSULT. Clinical Quality Measures DVT/VTE Risk/Contraindication: Risk Factor Score Per Nursin RFS Level Per Nursing on Admit: 4+=Very High ATUL HEREDIA MD May 22, 2017 18:43
[2017-05-22 20:59] VITALS: BP 105/68
[2017-05-23] VITALS (7 sets, daily range): BP systolic 106–164; BP diastolic 64–76
[2017-05-23] MEDS: MULTIVIT W/MINERALS TAB (THERAGRAN M) PO SCH (05:40)
[2017-05-23] MEDS: PANTOPRAZOLE 40 MG (PROTONIX) TAB PO SCH (05:40)
[2017-05-23] MEDS: morphine PCA 30 MG/30 ML VIAL IV PRN (05:41)
[2017-05-23 06:48] LABS: ANION GAP 9 MMOL/L (5-14); BLOOD UREA NITROGEN 16 MG/DL (7-18); BUN/CREATININE RATIO 21; CALCIUM 8.1 MG/DL (8.5-10.1); CARBON DIOXIDE 24 MMOL/L (21-32); CHLORIDE 106 MMOL/L (98-107); CREATININE SERUM 0.76 MG/DL (0.60-1.30); GFR ESTIMATED > 60; GLUCOSE 130 MG/DL (70-105); POTASSIUM 3.4 MMOL/L (3.6-5.0); SODIUM 139 MMOL/L (135-145)
--- NOTE | 2017-05-23 07:42 | Progress Note-Standard ---
Standard Progress Note Progress Notes/Assess & Plan Date Seen by Provider: May 23, 2017 Time Seen by Provider: 07:41 Progress/Assessment & Plan Post op check Patient comfortable Radiographs HW well positioned without fracture LLE--intact DF and PF of toes and ankle. Sensation intact throughout. pulses equal with brisk cap refill s/p LTKA doing well mobilize as able Final Diagnosis No complaints Vital Signs Date Time Temp Pulse Resp B/P (MAP) Pulse Ox O2 Delivery O2 Flow Rate FiO2 05/23/17 06:14 18 05/23/17 04:25 98.9 88 17 106/64 93 Room Air 05/23/17 00:32 98.2 83 18 122/71 97 Room Air 05/22/17 23:09 18 05/22/17 21:11 Room Air 05/22/17 20:59 99.3 80 20 105/68 97 Room Air 05/22/17 16:55 99.0 69 20 121/75 97 Room Air 05/22/17 12:30 16 05/22/17 12:00 97.2 75 16 122/72 92 Room Air 05/22/17 09:00 97.8 Laboratory Tests Test 05/23/17 05:45 Range/Units Hemoglobin 12.2 11.5-16.0 G/DL Hematocrit 37 35-52 % Sodium Level 139 135-145 MMOL/L Potassium Level 3.4 L 3.6-5.0 MMOL/L Chloride Level 106 98-107 MMOL/L Carbon Dioxide Level 24 21-32 MMOL/L Anion Gap 9 5-14 MMOL/L Blood Urea Nitrogen 16 7-18 MG/DL Creatinine 0.76 0.60-1.30 MG/DL Estimat Glomerular Filtration Rate > 60 BUN/Creatinine Ratio 21 Glucose Level 130 H 70-105 MG/DL Calcium Level 8.1 L 8.5-10.1 MG/DL LLE--dressing intact. NVI distally. No calf tenderness. SLR with assistance s/p LTKA doing well mobilize NIALL WEBER MD May 23, 2017 07:42
--- NOTE | 2017-05-23 08:23 | Progress Note (SOAP) ---
Subjective Date Seen by Provider: May 23, 2017 Time Seen by Provider: 09:00 Subjective/Events-last exam PT REPORTS THAT SHE IS FEELING BETTER TODAY. SHE REPORTS THAT HER WEAKNESS IS IMPROVED, HER BREATHING IS FINE. SHE STATES THAT SHE IS NOT HAVING MUCH PAIN - THE PAIN SHE DOES HAVE IS CONTROLLED WITH POT SANDER AND ORAL MEDICATIONS. Review of Systems General: No Fatigue, No Malaise HEENT: No Head Aches Pulmonary: No Dyspnea, Cough Cardiovascular: No: Chest Pain Gastrointestinal: No: Nausea, Abdominal Pain Genitourinary: No Dysuria Musculoskeletal: leg pain (LEFT KNEE) Neurological: No: Weakness, Confusion Objective Exam Vital Signs Date Time Temp Pulse Resp B/P (MAP) Pulse Ox O2 Delivery O2 Flow Rate FiO2 05/23/17 06:14 18 05/23/17 04:25 98.9 88 17 106/64 93 Room Air 05/23/17 00:32 98.2 83 18 122/71 97 Room Air 05/22/17 23:09 18 05/22/17 21:11 Room Air 05/22/17 20:59 99.3 80 20 105/68 97 Room Air 05/22/17 16:55 99.0 69 20 121/75 97 Room Air 05/22/17 12:30 16 05/22/17 12:00 97.2 75 16 122/72 92 Room Air 05/22/17 09:00 97.8 Capillary Refill : General Appearance: No Apparent Distress, WD/WN HEENT: PERRL/EOMI, Pharynx Normal Neck: Full Range of Motion, Supple Respiratory: Chest Non Tender, Lungs Clear, Normal Breath Sounds, No Accessory Muscle Use, No Respiratory Distress Cardiovascular: Regular Rate, Rhythm, No Edema Gastrointestinal: normal bowel sounds, non tender, soft, no organomegaly, no pulsatile mass Extremity: Pedal Edema (LEFT KNEE DRESSING WITH BLOODY DISCHARGE) Neurologic/Psychiatric: Alert, Oriented x3, No Motor/Sensory Deficits, Normal Mood/Affect Skin: Damp Results Lab Laboratory Tests 05/23/17 05:45: Hemoglobin 12.2, Hematocrit 37, Sodium Level 139, Potassium Level 3.4L, Chloride Level 106, Carbon Dioxide Level 24, Anion Gap 9, Blood Urea Nitrogen 16 , Creatinine 0.76, Estimat Glomerular Filtration Rate > 60, BUN/Creatinine Ratio 21, Glucose Level 130H, Calcium Level 8.1L Assessment/Plan Assessment/Plan Assess & Plan/Chief Complaint LEFT KNEE REPLACEMENT GERD URGE INCONTINENCE FACTOR V LEIDEN DEFICIENCY PT WAS ADMITTED TO THE HOSPITAL, UNDERWENT A TOTAL LEFT KNEE REPLACEMENT THIS MORNING. SHE WILL START PHYSICAL THERAPY FOR STRENGTHENING. MOST LIKELY WILL BENEFIT FROM THERAPY OUTPATIENT - WILL NEED HOME HEALTH FOR A SHORT TIME, THEN TRANSITION TO OUTPATIENT THERAPY. GERD - RESTART PPI URGE INCONTINENCE - RESTART OXYBUTYNIN FACTOR V LEIDEN DEFICIENCY - CHRONIC - CONTINUE WITH LOVENOX TODAY - START XARELTO 20MG DAILY TOMORROW FOR PROPHYLAXIS AGAINST DVT. I APPRECIATE THE CONSULT. Clinical Quality Measures DVT/VTE Risk/Contraindication: Risk Factor Score Per Nursin RFS Level Per Nursing on Admit: 4+=Very High ATUL HEREDIA MD May 23, 2017 08:23
[2017-05-23] MEDS: OXYBUTYNIN (DITROPAN) 5 MG TAB PO SCH (08:33)
[2017-05-23] MEDS: SENNA W/DOCUSATE (SENOKOT S) TABLET PO SCH ×2 (08:33→20:13)
[2017-05-23] MEDS: ENOXAPARIN 30 MG/0.3 ML (LOVENOX) SYR SC SCH ×2 (08:33→20:13)
[2017-05-23] MEDS: ASPIRIN E.C. 81 MG (ECOTRIN) TAB PO SCH (08:34)
[2017-05-23] MEDS: oxyCODONE/APAP 5/325MG (PERCOCET 5) TABLET PO PRN ×2 (11:55→17:42)
--- NOTE | 2017-05-23 12:05 | Physical Therapy Daily Note ---
PT Daily Note-Current Subjective Patient is in bed and agrees to PT. Pain Numeric Pain Scale: 5-Moderate Pain Location: Left Location Body Site: Knee Pain Description: Acute Mental Status Patient Orientation: Normal For Age Attachments: IV Transfers Functional [place] Measure 0=Not Assessed/NA 4=Minimal Assistance 1=Total Assistance 5=Supervision or Setup 2=Maximal Assistance 6=Modified [place] 3=Moderate Assistance 7=Complete IndependenceIRFPAI Quality Coding Scale 6 Independent with activity with or without an assistive device 5 Patient requires set up or clean up by helper. Patient completes activity by themselves 4 Supervision or touching assist (CGA). [place] provide cues , steadying assist 3 The helper provides less than half the effort to complete the activity 2 The helper provides more than half the effort to complete the activity 1 Dependent. The helper does all the effort to complete an activity 7 Patient refused to complete or attempt activity 9 The patient did not perform the activity before the current illness or injury 88 Not attempted due to Medical conditions or safety concerns Transfers (B, C, W/C) (FIM): 5 Scootin Rollin Supine to/from Sit: 5 Sit to/from Stand: 5 Weight Bearing Weight Bearing Restriction: Weight Bearing/Tolerated Location Restriction: L LE Gait Training Gait (FIM): 5 Distance (FIM): 3=150 ft Distance: 200' Gait Level of Assist: 5 Gait Persons Needed: 1 Gait Assistive Device: FWW slow, antalgic Exercises Supine Ex: Ankle pumps, Quad Set, Heel Slides, Straight leg raise Supine Reps: 15 Seated Therapy Exercises: Long arc quads Seated Reps: 15 Treatments CPM 0-70 degrees with polar pack in place. Assessment Current Status: Excellent Progress Patient is progressing with treatment plan. Plan dismissal to home Saturday. PT Short Term Goals Short Term Goals Time Frame: May 29, 2017 Transfers (B,C,W/C) (FIM): 6 Gait (FIM): 5 Distance (FIM): 3=150 ft Gait Distance Comment: 150' Gait Level of Assist: 5 Gait Assistive Device: FWW PT Plan Treatment/Plan Treatment Plan: Continue Plan of Care Treatment Plan: Bed Mobility, Education, Functional Activity Nella, Functional Strength, Gait, Safety, Therapeutic Exercise, Transfers Treatment Duration: May 29, 2017 Frequency: 11 times per week Estimated Hrs Per Day: .25 hour per day (15-30 min) Patient and/or Family Agrees t: Yes Discharge Recommendations Therapy D/C Recommendations: Physical Therapy Home Care Time/GCodes Time In: 1040 Time Out: 1105 Total Billed Treatment Time: 25 Total Billed Treatment 1 visit EX 10 min GT 15 min CORY BYRNE PT May 23, 2017 12:05
[2017-05-23] MEDS: NS IV 1000 ML 1,000 ML IV SCH (12:07)
--- NOTE | 2017-05-23 13:29 | Anesthesia-General Post-Op ---
General Patient Condition Mental Status/LOC: Same as Preop Cardiovascular: Satisfactory Nausea/Vomiting: Absent Respiratory: Satisfactory Pain: Controlled Complications: Absent Post Op Complications Complications None Follow Up Care/Instructions Patient Instructions None needed. Anesthesia/Patient Condition Patient Condition Patient is doing well, no complaints, stable vital signs, no apparent adverse anesthesia problems. No complications reported per nursing. MARTA MAYS CRNA May 23, 2017 13:29
--- NOTE | 2017-05-23 13:52 | Physical Therapy Daily Note ---
PT Daily Note-Current Subjective Patient agrees to PT. Pain Numeric Pain Scale: 5-Moderate Pain Location: Left Location Body Site: Knee Pain Description: Acute Mental Status Patient Orientation: Normal For Age Attachments: IV Transfers Functional [place] Measure 0=Not Assessed/NA 4=Minimal Assistance 1=Total Assistance 5=Supervision or Setup 2=Maximal Assistance 6=Modified [place] 3=Moderate Assistance 7=Complete IndependenceIRFPAI Quality Coding Scale 6 Independent with activity with or without an assistive device 5 Patient requires set up or clean up by helper. Patient completes activity by themselves 4 Supervision or touching assist (CGA). [place] provide cues , steadying assist 3 The helper provides less than half the effort to complete the activity 2 The helper provides more than half the effort to complete the activity 1 Dependent. The helper does all the effort to complete an activity 7 Patient refused to complete or attempt activity 9 The patient did not perform the activity before the current illness or injury 88 Not attempted due to Medical conditions or safety concerns Transfers (B, C, W/C) (FIM): 5 Scootin Rollin Supine to/from Sit: 5 Sit to/from Stand: 5 Gait Training Gait (FIM): 5 Distance (FIM): 3=150 ft Distance: 300' Gait Level of Assist: 5 Gait Assistive Device: FWW improved reciprocal pattern Exercises Supine Ex: Ankle pumps, Quad Set, Heel Slides, Straight leg raise Supine Reps: 15 Seated Therapy Exercises: Long arc quads Seated Reps: 15 Assessment Current Status: Excellent Progress PT Short Term Goals Short Term Goals Time Frame: May 29, 2017 Transfers (B,C,W/C) (FIM): 6 Gait (FIM): 5 Distance (FIM): 3=150 ft Gait Distance Comment: 150' Gait Level of Assist: 5 Gait Assistive Device: FWW PT Plan Treatment/Plan Treatment Plan: Continue Plan of Care Treatment Plan: Bed Mobility, Education, Functional Activity Nella, Functional Strength, Gait, Safety, Therapeutic Exercise, Transfers Treatment Duration: May 29, 2017 Frequency: 11 times per week Estimated Hrs Per Day: .25 hour per day (15-30 min) Patient and/or Family Agrees t: Yes Time/GCodes Time In: 1300 Time Out: 1330 Total Billed Treatment Time: 30 Total Billed Treatment 1 visit GT 15 min EX 15 min CORY BYRNE PT May 23, 2017 13:52
--- NOTE | 2017-05-23 14:52 | Occupational Therapy Eval ---
OT Evaluation-General/PLF Medical Diagnosis Admission Date May 22, 2017 at 06:00 Medical Diagnosis: Left total knee arthroplasty Onset Date: May 22, 2017 Therapy Diagnosis Therapy Diagnosis: decr self care Height/Weight Height (Feet): 5 Height (Inches): 6.00 Weight (Pounds): 218 Weight (Ounces): 0.0 Precautions Precautions/Isolations: Standard Precautions Safety Interventions: None Weight Bear Status Weight Bearing Restriction: Weight Bearing/Tolerated Location Restriction: L LE Referral Physician: Arben Simons APRN Referral Reason: Evaluation/Treatment Medical History Pertinent Medical History: GERD Additional Medical History Blood clots, L little finger pinning and partial amputation, urgency, pt reported L knee stiffness and pain Current History Elective L total knee replacement Reviewed History: Yes Social History Home: Single Level Current Living Status: Alone Entry Into Home: Stairs With Railing Steps Into Home: 7 Steps Inside Home: 0 ADL-Prior Level of Function ADL PLOF Comments Pt reported that she has been able to manage all of her basic ADLs, She is retired from [employer] and still drives. She helps care for her two year old twin granddaughters. DME/Equipment: Tub/Shower DME/Equipment Comments Pt reported that her toilet is very low and she has top pull up from the sink. She had trouble stepping in and out of bathtub before surgery. She also mentioned that she will eventually have R knee replaced. Occupation: retired Drive Self: Yes OT Current Status Subjective pt seen in room, up in bed, agreeable to OT. She reported some discomfort but not really pain in her knee Appearance Alert, cooperative Current Glasses/Contacts: Yes Upper Extremity ROM Grossly WFL bilat Upper Extremity Coordination No problems reported Upper Extremity Strength Grossly WFL bilat ADL-Treatment ADL-Current Pt has been able to feed herself. she said that when she needs to toilet, they bring BSC up beside the bed and she pretty much transfers herself, with them standing by. She commented that she had a little more trouble getting her pants on over her feet today Functional [place] Measure 0=Not Assessed/NA 4=Minimal Assistance 1=Total Assistance 5=Supervision or Setup 2=Maximal Assistance 6=Modified [place] 3=Moderate Assistance 7=Complete IndependenceIRFPAI Quality Coding Scale 6 Independent with activity with or without an assistive device 5 Patient requires set up or clean up by helper. Patient completes activity by themselves 4 Supervision or touching assist (CGA). [place] provide cues , steadying assist 3 The helper provides less than half the effort to complete the activity 2 The helper provides more than half the effort to complete the activity 1 Dependent. The helper does all the effort to complete an activity 7 Patient refused to complete or attempt activity 9 The patient did not perform the activity before the current illness or injury 88 Not attempted due to Medical conditions or safety concerns Pt education on BSC for over toilet and transfer tub bench, as well as dressing stick, product strategy director and sock aid. Information on white board in patient's room Education OT Patient Education: Modified ADL techniques, Purpose of tx/functional activities, Rehab process Teaching Recipient: Patient Teaching Methods: Discussion Response to Teaching: Verbalize Understanding OT Care Home Goals Care Home Goals Time Frame: May 27, 2017 Upper Body Dressing(FIM): 5 Lower Body Dressing(FIM): 5 Toileting(FIM): 6 Toilet/Commode Transfer(FIM): 6 Shower Transfer(FIM): 5 Additional Goals: 1-Demonstrate ADL Tasks, 2-Verbalize Understanding, 3- ImproveStrength/Nella 1=Demonstrate adherence to instructed precautions during ADL tasks. 2=Patient will verbalize/demonstrate understanding of assistive devices/ modifications for ADL. 3=Patient will improve strength/tolerance for activity to enable patient to perform ADL's. OT Education/Plan Problem List/Assessment Assessment: Dependent Transfers, Impaired Self-Care Skills Pt would benefit from skilled OT to increase her independence in basic self care to allow her to safely return to her home to live alone Discharge Recommendations Plan/Recommendations: Continue POC Treatment Plan/Plan of Care Treatment,Training & Education: Yes Patient would benefit from OT for education, treatment and training to promote independence in ADL's, mobility, safety and/or upper extremity function for ADL' s. Plan of Care: ADL Retraining Treatment Duration: May 27, 2017 Frequency: 5 times per week Estimated Hrs Per Day: .5 hour per day Agreement: Yes Rehab Potential: Good Time/GCodes Start Time: 14:00 Stop Time: 14:25 Total Time Billed (hr/min): 25 Billed Treatment Time visit, 10 minutes evaluation low intensity, 15 minutes ADL ELKIN TOLENTINO OT May 23, 2017 14:52
[2017-05-24 00:40] VITALS: BP 140/65
[2017-05-24] MEDS: NS IV 1000 ML 1,000 ML IV SCH (00:43)
[2017-05-24] MEDS: morphine PCA 30 MG/30 ML VIAL IV PRN (03:15)
[2017-05-24 04:35] VITALS: BP 128/64
[2017-05-24] MEDS: PANTOPRAZOLE 40 MG (PROTONIX) TAB PO SCH (06:11)
[2017-05-24] MEDS: MULTIVIT W/MINERALS TAB (THERAGRAN M) PO SCH (06:11)
--- NOTE | 2017-05-24 06:39 | Progress Note-Standard ---
Standard Progress Note Progress Notes/Assess & Plan Date Seen by Provider: May 24, 2017 Time Seen by Provider: 06:38 Progress/Assessment & Plan Post op check Patient comfortable Radiographs HW well positioned without fracture LLE--intact DF and PF of toes and ankle. Sensation intact throughout. pulses equal with brisk cap refill s/p LTKA doing well mobilize as able Final Diagnosis No complaints Vital Signs Date Time Temp Pulse Resp B/P (MAP) Pulse Ox O2 Delivery O2 Flow Rate FiO2 05/24/17 06:22 16 05/24/17 04:35 99.5 97 16 128/64 94 Room Air 05/24/17 03:15 18 05/24/17 00:40 99.1 98 18 140/65 98 Room Air 05/23/17 21:00 20 05/23/17 20:59 99.1 85 18 143/74 99 Room Air 05/23/17 16:40 98.6 81 20 136/70 98 Room Air 05/23/17 12:00 99.8 88 18 144/76 99 Room Air 05/23/17 08:43 100.0 90 18 134/72 98 Room Air 05/23/17 08:00 98 Room Air Laboratory Tests Test 05/24/17 05:02 Range/Units Hemoglobin 11.5 11.5-16.0 G/DL Hematocrit 35 35-52 % LLE--incision clean and dry. No calf tenderness. Neg Isidra's s/p LTKA progressing well continue PT/OT NIALL WEBER MD May 24, 2017 06:39
[2017-05-24] MEDS ORDERED: morphine INJ 4 MG/ML 1 ML (VIAL/SYRINGE) IVP PRN (06:45)
[2017-05-24 08:00] VITALS: BP 158/77
[2017-05-24] MEDS: OXYBUTYNIN (DITROPAN) 5 MG TAB PO SCH (08:50)
[2017-05-24] MEDS: ASPIRIN E.C. 81 MG (ECOTRIN) TAB PO SCH (08:50)
[2017-05-24] MEDS: SENNA W/DOCUSATE (SENOKOT S) TABLET PO SCH ×2 (08:50→20:01)
[2017-05-24] MEDS: oxyCODONE/APAP 5/325MG (PERCOCET 5) TABLET PO PRN ×3 (08:51→19:23)
--- NOTE | 2017-05-24 08:52 | Progress Note (SOAP) ---
Subjective Date Seen by Provider: May 24, 2017 Time Seen by Provider: 08:51 Subjective/Events-last exam PT REPORTS THAT SHE IS FEELING BETTER EVERY DAY - SHE HAS QUESTIONS ABOUT DISCHARGE AND PLAN FOR BLOOD THINNERS. Review of Systems General: No Fatigue, No Malaise HEENT: No Head Aches Pulmonary: No Dyspnea, No Cough Cardiovascular: No: Chest Pain, Palpitations Gastrointestinal: No: Nausea, Abdominal Pain Genitourinary: No Dysuria Musculoskeletal: leg pain Neurological: No: Weakness, Confusion Objective Exam Vital Signs Date Time Temp Pulse Resp B/P (MAP) Pulse Ox O2 Delivery O2 Flow Rate FiO2 05/24/17 08:00 99.8 86 20 158/77 98 Room Air 05/24/17 06:22 16 05/24/17 04:35 99.5 97 16 128/64 94 Room Air 05/24/17 03:15 18 05/24/17 00:40 99.1 98 18 140/65 98 Room Air 05/23/17 21:00 20 05/23/17 20:59 99.1 85 18 143/74 99 Room Air 05/23/17 16:40 98.6 81 20 136/70 98 Room Air 05/23/17 12:00 99.8 88 18 144/76 99 Room Air Capillary Refill : Less Than 3 Seconds General Appearance: No Apparent Distress, WD/WN HEENT: PERRL/EOMI, Pharynx Normal Neck: Full Range of Motion, Supple Respiratory: Chest Non Tender, Lungs Clear, Normal Breath Sounds Cardiovascular: Regular Rate, Rhythm, No Edema Gastrointestinal: normal bowel sounds, non tender, soft Extremity: No Pedal Edema Neurologic/Psychiatric: Alert, Oriented x3, No Motor/Sensory Deficits, Normal Mood/Affect Skin: Warm/Dry Lymphatic: No Adenopathy Results Lab Laboratory Tests 05/24/17 05:02: Hemoglobin 11.5, Hematocrit 35 Assessment/Plan Assessment/Plan Assess & Plan/Chief Complaint LEFT KNEE REPLACEMENT GERD URGE INCONTINENCE FACTOR V LEIDEN DEFICIENCY PT WAS ADMITTED TO THE HOSPITAL, UNDERWENT A TOTAL LEFT KNEE REPLACEMENT THIS MORNING. SHE WILL START PHYSICAL THERAPY FOR STRENGTHENING. MOST LIKELY WILL BENEFIT FROM THERAPY OUTPATIENT - WILL NEED HOME HEALTH FOR A SHORT TIME, THEN TRANSITION TO OUTPATIENT THERAPY. GERD - RESTART PPI URGE INCONTINENCE - RESTART OXYBUTYNIN FACTOR V LEIDEN DEFICIENCY - CHRONIC - CONTINUE WITH LOVENOX THIS AM AND - START XARELTO 20MG DAILY TONIGHT FOR PROPHYLAXIS AGAINST DVT. MY OFFICE HAS 2 WEEKS OF XARELTO WAITING FOR PATIENT TO HAVE IT PICKED UP BY HER FAMILY. I APPRECIATE THE CONSULT. Clinical Quality Measures DVT/VTE Risk/Contraindication: Risk Factor Score Per Nursin RFS Level Per Nursing on Admit: 4+=Very High ATUL HEREDIA MD May 24, 2017 08:52
[2017-05-24] MEDS: ENOXAPARIN 30 MG/0.3 ML (LOVENOX) SYR SC SCH (09:03)
--- NOTE | 2017-05-24 10:11 | Physical Therapy Daily Note ---
PT Daily Note-Current Subjective Patient agrees to PT. Pain Numeric Pain Scale: 5-Moderate Pain Location: Left Location Body Site: Knee Pain Description: Acute Mental Status Patient Orientation: Normal For Age Transfers Functional [place] Measure 0=Not Assessed/NA 4=Minimal Assistance 1=Total Assistance 5=Supervision or Setup 2=Maximal Assistance 6=Modified [place] 3=Moderate Assistance 7=Complete IndependenceIRFPAI Quality Coding Scale 6 Independent with activity with or without an assistive device 5 Patient requires set up or clean up by helper. Patient completes activity by themselves 4 Supervision or touching assist (CGA). [place] provide cues , steadying assist 3 The helper provides less than half the effort to complete the activity 2 The helper provides more than half the effort to complete the activity 1 Dependent. The helper does all the effort to complete an activity 7 Patient refused to complete or attempt activity 9 The patient did not perform the activity before the current illness or injury 88 Not attempted due to Medical conditions or safety concerns Transfers (B, C, W/C) (FIM): 6 Scootin Rollin Supine to/from Sit: 6 Sit to/from Stand: 6 patient is safe to be up ad clive in room and hallway. RN notified. Gait Training Gait (FIM): 6 Distance (FIM): 3=150 ft Distance: 300' x 2 Gait Level of Assist: 6 Gait Assistive Device: FWW antalgic, reciprocal pattern Stair Training Stair Training: Handrails/: 1 handrail, uses walker Stairs (FIM): 5 #of Steps: 6 Stairs: Pattern: Step to Level of Assist: 5 Exercises Supine Ex: Ankle pumps, Quad Set, Heel Slides, Straight leg raise Supine Reps: 15 Seated Therapy Exercises: Long arc quads Seated Reps: 15 Assessment Current Status: Excellent Progress Patient is progressing with treatment plan and will dismiss to home tomorrow after therapy. PT Short Term Goals Short Term Goals Time Frame: May 29, 2017 Gait (FIM): 5 Distance (FIM): 3=150 ft Gait Distance Comment: 150' Gait Level of Assist: 5 Gait Assistive Device: FWW PT Plan Treatment/Plan Treatment Plan: Continue Plan of Care Treatment Plan: Bed Mobility, Education, Functional Activity Nella, Functional Strength, Gait, Safety, Therapeutic Exercise, Transfers Treatment Duration: May 29, 2017 Frequency: 11 times per week Estimated Hrs Per Day: .25 hour per day (15-30 min) Patient and/or Family Agrees t: Yes Time/GCodes Time In: 820 Time Out: 845 Total Billed Treatment Time: 25 Total Billed Treatment 1 visit EX 15 min GT 10 min CORY BYRNE PT May 24, 2017 10:11
[2017-05-24] MEDS ORDERED: RIVA20TA PO (10:21)
[2017-05-24 11:49] LABS: BILIRUBIN,URINE NEGATIVE (NEGATIVE); KETONES,URINE NEGATIVE (NEGATIVE); LEUKOCYTE ESTERASE ,URINE NEGATIVE (NEGATIVE); NITRITE,URINE NEGATIVE (NEGATIVE); PH,URINE 7 (5-9); PROTEIN,URINE NEGATIVE (NEGATIVE); UROBILINOGEN,URINE NORMAL (NORMAL)
[2017-05-24 12:00] VITALS: BP 112/75
[2017-05-24 12:02] LABS: SQUAMOUS EPITHELIAL CELL,UR >50 /HPF; WBC,URINE 0-2 /HPF
--- NOTE | 2017-05-24 15:05 | Physical Therapy Daily Note ---
PT Daily Note-Current Subjective Patient agrees to PT. Pain Numeric Pain Scale: 5-Moderate Pain Location: Left Location Body Site: Knee Pain Description: Acute Mental Status Patient Orientation: Normal For Age Transfers Functional [place] Measure 0=Not Assessed/NA 4=Minimal Assistance 1=Total Assistance 5=Supervision or Setup 2=Maximal Assistance 6=Modified [place] 3=Moderate Assistance 7=Complete IndependenceIRFPAI Quality Coding Scale 6 Independent with activity with or without an assistive device 5 Patient requires set up or clean up by helper. Patient completes activity by themselves 4 Supervision or touching assist (CGA). [place] provide cues , steadying assist 3 The helper provides less than half the effort to complete the activity 2 The helper provides more than half the effort to complete the activity 1 Dependent. The helper does all the effort to complete an activity 7 Patient refused to complete or attempt activity 9 The patient did not perform the activity before the current illness or injury 88 Not attempted due to Medical conditions or safety concerns Transfers (B, C, W/C) (FIM): 6 Scootin Sit to/from Stand: 6 Weight Bearing Weight Bearing Restriction: Weight Bearing/Tolerated Location Restriction: L LE Gait Training Gait (FIM): 6 Distance (FIM): 3=150 ft Distance: 300' Gait Level of Assist: 6 Gait Assistive Device: FWW antalgic Exercises Seated Therapy Exercises: Ankle pumps, Long arc quads, Hip flexion Seated Reps: 50 Assessment Current Status: Excellent Progress PT Short Term Goals Short Term Goals Time Frame: May 29, 2017 Gait (FIM): 5 Distance (FIM): 3=150 ft Gait Distance Comment: 150' Gait Level of Assist: 5 Gait Assistive Device: FWW PT Plan Treatment/Plan Treatment Plan: Continue Plan of Care Treatment Plan: Bed Mobility, Education, Functional Activity Nella, Functional Strength, Gait, Safety, Therapeutic Exercise, Transfers Treatment Duration: May 29, 2017 Frequency: 11 times per week Estimated Hrs Per Day: .25 hour per day (15-30 min) Patient and/or Family Agrees t: Yes Time/GCodes Time In: 1435 Time Out: 1500 Total Billed Treatment Time: 25 Total Billed Treatment 1 visit EX 10 min GT 15 min CORY BYRNE PT May 24, 2017 15:04
[2017-05-24 16:15] VITALS: BP 133/79
--- NOTE | 2017-05-24 16:20 | Occupational Ther Daily Note ---
OT Current Status-Daily Note Subjective Pt seen in room, up in recliner, agreeable to OT. No pain mentioned. Appearance Alert, cooperative Mental Status/Objective Functional [place] Measure 0=Not Assessed/NA 4=Minimal Assistance 1=Total Assistance 5=Supervision or Setup 2=Maximal Assistance 6=Modified [place] 3=Moderate Assistance 7=Complete [place] ADL-Treatment Pt reported that she has been taking herself to the bathroom and walking the halls by herself. She is feeling much more comfortable about discharging home tomorrow. Pt said that she has talked with SW about BSC and transfer tub bench and arrangements have been made to get them. pt was provided with catalog with examples of those pieces of equipment, as well as devices to aid in dressing. Pt educ on modified technique for donning [place] hose. Pt met goals to her satisfaction. Pt left up in recliner, all needs met. DC OT Education OT Patient Education: Modified ADL techniques, Purpose of tx/functional activities, Use of adapted equipment Teaching Recipient: Patient Teaching Methods: Handout OT Short Term Goals Short Term Goals 1=Demonstrate adherence to instructed precautions during ADL tasks. 2=Patient will verbalize/demonstrate understanding of assistive devices/ modifications for ADL. 3=Patient will improve strength/tolerance for activity to enable patient to perform ADL's. OT Filling Carrier Goals Filling Carrier Goals Time Frame: May 27, 2017 Upper Body Dressing(FIM): 5 Lower Body Dressing(FIM): 5 Toileting(FIM): 6 Toilet/Commode Transfer(FIM): 6 Shower Transfer(FIM): 5 Additional Goals: 1-Demonstrate ADL Tasks, 2-Verbalize Understanding, 3- ImproveStrength/Nella 1=Demonstrate adherence to instructed precautions during ADL tasks. 2=Patient will verbalize/demonstrate understanding of assistive devices/ modifications for ADL. 3=Patient will improve strength/tolerance for activity to enable patient to perform ADL's. OT Education/Plan Problem List/Assessment Pt would benefit from skilled OT to increase her independence in basic self care to allow her to safely return to her home to live alone Discharge Recommendations Plan/Recommendations: Discharge/Goals Met Treatment Plan/Plan of Care Patient would benefit from OT for education, treatment and training to promote independence in ADL's, mobility, safety and/or upper extremity function for ADL' s. Plan of Care: ADL Retraining Treatment Duration: May 27, 2017 Frequency: 5 times per week Estimated Hrs Per Day: .5 hour per day Agreement: Yes Rehab Potential: Good Time/GCodes Start Time: 15:10 Stop Time: 15:18 Total Time Billed (hr/min): 8 Billed Treatment Time visit, 8 minutes ELKIN MOORE OT May 24, 2017 16:20
[2017-05-24] MEDS ORDERED: RIVAROXABAN 20 MG TABLET (XARELTO) PO SCH (17:00)
[2017-05-25] VITALS: BP 96/62
[2017-05-25] MEDS: oxyCODONE/APAP 5/325MG (PERCOCET 5) TABLET PO PRN ×3 (03:15→14:02)
[2017-05-25] MEDS: MULTIVIT W/MINERALS TAB (THERAGRAN M) PO SCH (06:24)
[2017-05-25] MEDS: PANTOPRAZOLE 40 MG (PROTONIX) TAB PO SCH (06:24)
--- NOTE | 2017-05-25 07:18 | DISCHARGE SUMMARY ---
DATE OF SERVICE: 05/25/2017 DIAGNOSES: 1. Left knee primary osteoarthritis. 2. 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 3. Reflux. PROCEDURE: Left total knee arthroplasty. SUMMARY: The patient is a 62-year-old female who was admitted the day of a left total knee arthroplasty which she underwent without complications. Postoperatively, she did well. At the time of discharge, her wound was clean and dry. She had no calf tenderness and negative Homans sign. She had obtained independent status. She was tolerating her diet well and tolerating pain with oral pain medications. CONDITION ON DISCHARGE: Good. DISCHARGE DIET: Regular. FOLLOWUP: In 3 weeks. DISCHARGE MEDICATIONS: 1. Home medications. 2. Xarelto. 3. Percocet. Job ID: [id number] DocumentID: [id number] Dictated Date: 05/24/2017 12:48:28 Orthotic And Prosthetic Technician Date: 05/25/2017 07:17:48 Dictated By: NIALL WEBER MD
[2017-05-25 08:00] VITALS: BP 175/98
[2017-05-25] MEDS: OXYBUTYNIN (DITROPAN) 5 MG TAB PO SCH (08:37)
[2017-05-25] MEDS: SENNA W/DOCUSATE (SENOKOT S) TABLET PO SCH (08:38)
[2017-05-25] MEDS: ASPIRIN E.C. 81 MG (ECOTRIN) TAB PO SCH (08:38)
--- NOTE | 2017-05-25 08:56 | Physical Therapy Daily Note ---
PT Daily Note-Current Subjective Agreeable to PT. going home today. Reports she will start home PT on Saturday. Pain Numeric Pain Scale: 4 Location: Left Location Body Site: Knee Pain Description: Ache (sore) Comment: Has requested pain meds Mental Status Patient Orientation: Person, Place, Time, Situation Transfers Functional [place] Measure 0=Not Assessed/NA 4=Minimal Assistance 1=Total Assistance 5=Supervision or Setup 2=Maximal Assistance 6=Modified [place] 3=Moderate Assistance 7=Complete IndependenceIRFPAI Quality Coding Scale 6 Independent with activity with or without an assistive device 5 Patient requires set up or clean up by helper. Patient completes activity by themselves 4 Supervision or touching assist (CGA). [place] provide cues , steadying assist 3 The helper provides less than half the effort to complete the activity 2 The helper provides more than half the effort to complete the activity 1 Dependent. The helper does all the effort to complete an activity 7 Patient refused to complete or attempt activity 9 The patient did not perform the activity before the current illness or injury 88 Not attempted due to Medical conditions or safety concerns Transfers (B, C, W/C) (FIM): 6 (Pt able to get in out of bed and stand without assist; SPT to commode with FWW.) Gait Training Gait (FIM): 6 Distance (FIM): 3=150 ft Distance: 200 ft Gait Assistive Device: FWW Worked on heel strike and toe off gait pattern. Pt able toeffectively follow cues for giat. Exercises Seated Therapy Exercises: Ankle pumps, Long arc quads, Hamstring Curls Seated Reps: 15 Education to work on quad exercises as well as knee ROM over the weekend with frequent walking. Verbalized understanding. Assessment Current Status: Good Progress Good functional progress towards est goals. PT Short Term Goals Short Term Goals Time Frame: May 29, 2017 Gait (FIM): 5 (met) Distance (FIM): 3=150 ft Gait Distance Comment: 150' Gait Level of Assist: 5 Gait Assistive Device: FWW PT Plan Problem List Problem List: Activity Tolerance, Functional Strength Treatment/Plan Treatment Plan: Continue Plan of Care (vs dc) Treatment Plan: Bed Mobility, Education, Functional Activity Nella, Functional Strength, Gait, Safety, Therapeutic Exercise, Transfers Treatment Duration: May 29, 2017 Frequency: 11 times per week Estimated Hrs Per Day: .25 hour per day (15-30 min) Patient and/or Family Agrees t: Yes Safety Risks/Education Patient Education: Gait Training (reviewed HEP) Teaching Recipient: Patient Teaching Methods: Demonstration, Discussion Response to Teaching: Return Demonstration Discharge Recommendations Therapy D/C Recommendations: Physical Therapy Home Care Time/GCodes Time In: 800 Time Out: 824 Total Billed Treatment Time: 24 Total Billed Treatment visit EX 10 GT 14 CINDY ALMARAZ PT May 25, 2017 08:56
--- NOTE | 2017-05-25 09:09 | Progress Note-Standard ---
Standard Progress Note Progress Notes/Assess & Plan Date Seen by Provider: May 25, 2017 Time Seen by Provider: 09:08 Progress/Assessment & Plan Post op check Patient comfortable Radiographs HW well positioned without fracture LLE--intact DF and PF of toes and ankle. Sensation intact throughout. pulses equal with brisk cap refill s/p LTKA doing well mobilize as able Final Diagnosis NO complaints Vital Signs Date Time Temp Pulse Resp B/P (MAP) Pulse Ox O2 Delivery O2 Flow Rate FiO2 05/25/17 08:00 98.0 94 20 175/98 98 Room Air 05/25/17 00:00 97.8 84 18 96/62 96 Room Air 05/24/17 22:45 98.5 05/24/17 20:40 100.6 05/24/17 19:20 101.6 05/24/17 16:15 97.5 85 18 133/79 100 Room Air 05/24/17 12:00 98.3 100 20 112/75 98 Room Air Laboratory Tests Test 05/24/17 11:45 05/25/17 06:41 Range/Units Urine Color YELLOW Urine Clarity CLEAR Urine pH 7 5-9 Urine Specific [place] 1.005 L 1.016-1.022 Urine Protein NEGATIVE NEGATIVE Urine Glucose (UA) NEGATIVE NEGATIVE Urine Ketones NEGATIVE NEGATIVE Urine Nitrite NEGATIVE NEGATIVE Urine Bilirubin NEGATIVE NEGATIVE Urine Urobilinogen NORMAL NORMAL MG/DL Urine Leukocyte Esterase NEGATIVE NEGATIVE Urine RBC (Auto) NEGATIVE NEGATIVE Urine RBC RARE /HPF Urine WBC 0-2 /HPF Urine Squamous Epithelial Cells >50 H /HPF Urine Renal Epithelial Cells NONE /HPF Urine Crystals NONE /LPF Urine Bacteria NEGATIVE /HPF Urine Casts NONE /LPF Urine Mucus NEGATIVE /LPF Urine Culture Indicated NO Hemoglobin 11.3 L 11.5-16.0 G/DL Hematocrit 33 L 35-52 % LLE--in cision clean and dry. no calf tenderness. Neg Isidra's s/p LTKA doing well dc home NIALL WEBER MD May 25, 2017 09:09
[2017-05-25] MEDS ORDERED: SENN-20 PO (11:28)
[2017-05-25] MEDS ORDERED: OXYC-471 PO (11:28)
[2017-05-25 15:00] VITALS: BP 175/98
== END 2017-05-25 15:00 | disposition home health service (06) | DRG 470 ==
LOC: 4TH 06:00 → SURG 06:01 → 4TH 10:23
PROVIDERS: ADMIT Orthopaedic Surgery; ATTEND Orthopaedic Surgery
PROC: 0SRD0J9 Replacement of Left Knee Joint with Synthetic Substitute, Cemented, Open Approach (ICD-10-PCS; principal; 2017-05-22 07:25)
DX: M17.12 Unilateral primary osteoarthritis, left knee (principal); D68.2 Hereditary deficiency of other clotting factors; K21.9 Gastro-esophageal reflux disease without esophagitis; N39.41 Urge incontinence; Z86.718 Personal history of other venous thrombosis and embolism; Z79.01 Long term (current) use of anticoagulants
CPT/HCPCS: 36415; 73560; 80048; 81000; 85014; 85018; 86870; 94664

== ENCOUNTER 2017-08-23 13:58 | Outpatient (RCR) | payer BC, OTHER ==
[~2017-08-23 13:58] MED LIST changes: +NAPR-1084 PO; -NAPR375T3 PO; +OXYC-471 PO; +RIVA20TA PO; +SENN-20 PO
== END 2017-08-23 15:19 | disposition home or self-care (01) ==
PROVIDERS: ATTEND Orthopaedic Surgery
DX: Z47.1 Aftercare following joint replacement surgery (principal); Z96.652 Presence of left artificial knee joint

== ENCOUNTER 2017-10-17 11:56 | Outpatient (CLI) | payer BC, OTHER ==
[~2017-10-17] VITALS: Ht 167.6 cm; Wt 98.0 kg
[2017-10-17 12:03] VITALS: BP 152/95
[2017-10-17] MEDS ORDERED: NAPR500T4 PO (12:08)
[2017-10-17 12:33] LABS: BASOPHILS # (AUTO) 0.1 10^3/uL (0.0-0.1); BASOPHILS % (AUTO) 1 % (0-10); EOSINOPHILS # (AUTO) 0.1 10^3/uL (0.0-0.3); EOSINOPHILS % (AUTO) 2 % (0-10); HEMATOCRIT 39 % (35-52); HEMOGLOBIN 13.9 G/DL (11.5-16.0); LYMPHOCYTES # (AUTO) 2.5 X 10^3 (1.0-4.0); LYMPHOCYTES % (AUTO) 38 % (12-44); MEAN CORPUSCULAR HEMOGLOBIN 34 PG (25-34); MEAN CORPUSCULAR HGB CONC 36 G/DL (32-36); MEAN CORPUSCULAR VOLUME 93 FL (80-99); MEAN PLATELET VOLUME 10.5 FL (7.4-10.4); MONOCYTES # (AUTO) 0.4 X 10^3 (0.0-1.0); MONOCYTES % (AUTO) 6 % (0-12); NEUTROPHILS # (AUTO) 3.3 X 10^3 (1.8-7.8); NEUTROPHILS % (AUTO) 52 % (42-75); PLATELET COUNT 218 10^3/uL (130-400); RED BLOOD COUNT 4.14 10^6/uL (4.35-5.85); RED CELL DISTRIBUTION WIDTH 12.2 % (10.0-14.5); WHITE BLOOD COUNT 6.4 10^3/uL (4.3-11.0)
[2017-10-17 12:35] LABS: BILIRUBIN,URINE NEGATIVE (NEGATIVE); CLARITY,URINE CLEAR; COLOR,URINE YELLOW; GLUCOSE, URINE (UA) NEGATIVE (NEGATIVE); KETONES,URINE NEGATIVE (NEGATIVE); LEUKOCYTE ESTERASE ,URINE 1+ (NEGATIVE); NITRITE,URINE NEGATIVE (NEGATIVE); PH,URINE 7 (5-9); PROTEIN,URINE NEGATIVE (NEGATIVE); UROBILINOGEN,URINE NORMAL (NORMAL)
[2017-10-17 12:42] LABS: PROTHROMBIN TIME PATIENT 12.8 SEC (12.2-14.7)
[2017-10-17 12:50] LABS: BACTERIA,URINE NEGATIVE /HPF; WBC,URINE RARE /HPF
[2017-10-17 12:51] LABS: ALANINE AMINOTRANSFERASE 9 U/L (0-55); ALBUMIN 3.8 GM/DL (3.2-4.5); ALKALINE PHOSPHATASE 66 U/L (40-136); BILIRUBIN,TOTAL 0.6 MG/DL (0.1-1.0); BUN/CREATININE RATIO 31; CARBON DIOXIDE 23 MMOL/L (21-32); CHLORIDE 106 MMOL/L (98-107); CREATININE SERUM 0.72 MG/DL (0.60-1.30); GFR ESTIMATED > 60; GLUCOSE 84 MG/DL (70-105); POTASSIUM 3.9 MMOL/L (3.6-5.0); SODIUM 141 MMOL/L (135-145); TOTAL PROTEIN 7.1 GM/DL (6.4-8.2)
[2017-10-17 13:01] LABS: ERYTHROCYTE SEDIMENTATION RATE 14 MM/HR (0-30)
== END 2017-10-17 12:35 | disposition home or self-care (01) ==
LOC: PREOP 11:56
PROVIDERS: ATTEND Orthopaedic Surgery
DX: Z01.812 Encounter for preprocedural laboratory examination (principal); Z11.2 Encounter for screening for other bacterial diseases; M17.11 Unilateral primary osteoarthritis, right knee; R53.83 Other fatigue
CPT/HCPCS: 36415; 80053; 81000; 85025; 85610; 85652; 86850; 86870; 86900; 86901; 86902; 87081

== ENCOUNTER 2017-10-23 05:59 | Inpatient (IN) | payer BC, OTHER ==
--- NOTE | 2017-10-15 09:43 | HISTORY AND PHYSICAL ---
DATE OF SERVICE: This will be for inpatient admission on 10/23/2017 for right total knee arthroplasty. HISTORY OF PRESENT ILLNESS: The patient is a 62-year-old female with progressively worsening right knee pain. Radiographs revealed complete loss of medial and patellofemoral joint spaces. She has undergone treatment with injections, anti-inflammatories and rest without relief. She reports functional impairment. She reports there has been no improvement with conservative measures and therefore has elected to proceed with surgical intervention. REVIEW OF SYSTEMS: No chest pain, no shortness of breath. No dysuria. PAST MEDICAL HISTORY: Deep venous thrombosis, reflux. PAST SURGICAL HISTORY: Left fifth finger pinning with partial amputation and hysterectomy. FAMILY HISTORY: Significant for lung cancer. PRIMARY CARE PROVIDER: Dr. Monson. MEDICATIONS: Pantoprazole, oxybutynin and Naprosyn. ALLERGIES: No known allergies. SOCIAL HISTORY: The patient denies alcohol and tobacco use. PHYSICAL EXAMINATION: GENERAL: The patient is well developed, well-nourished in no acute distress. HEENT: Normocephalic, atraumatic. Pupils are equal, round react to light. Oropharynx is clear. NECK: Supple, no lymphadenopathy. LUNGS: Clear to auscultation bilaterally. HEART: Regular rate and rhythm. ABDOMEN: Soft, nontender, nondistended. EXTREMITIES: The right knee demonstrates a slight effusion. There is no erythema or warmth. SKIN: No skin lesions are noted. MUSCULOSKELETAL: Range of motion actively is 0/3/120. No varus or valgus laxity. Negative anterior and posterior drawer. The patient ambulates with an antalgic gait and needs assistance to arise from a seated position. ASSESSMENT: Severe right knee osteoarthritis unresponsive to conservative measures. PLAN: Right total knee arthroplasty. The risks, benefits of operative indications and recovery have been discussed at length with the patient. She understands and wishes to proceed. Job ID: [id number] DocumentID: [id number] Dictated Date: 10/15/2017 09:07:23 Maintenance Mechanic Engine Date: 10/15/2017 09:42:25 Dictated By: NIALL WEBER MD
[~2017-10-23] VITALS: Ht 167.6 cm; Wt 98.0 kg
[~2017-10-23 05:59] MED LIST changes: +NAPR-915 PO
--- OUTSIDE RECORDS SUMMARY | 2017-10-23 06:04 | XMS REPORT | CCD ---
Author Author [facility] Address [address] [place] [address] Phone Care Team Providers Care [place] Finish Operator Tig Welder Name Role Phone PP Unavailable CCM Unavailable Summary Purpose Interface Exchange Insurance Providers Payer name Policy type / Coverage type Covered libertarian ID Effective Begin Date Effective End Date Blue Cross [facility] Blue Cross/Blue [facility] [id number] 2017 Unknown Family history Son Diagnosis Age At Onset Asthma Unknown Mother Diagnosis Age At Onset Osteoporosis Unknown Arthritis Unknown Father Diagnosis Age At Onset Cancer Unknown Social History Social History Element Codes Description Effective Dates Marital status Unknown Single 04/08/2017 Number of children Unknown 2 04/08/2017 Employment Unknown Retired 04/08/[address]: 231022435 Never smoker 04/08/[address]: 432529989 Never drinks alcohol 04/08/2017 Has the patient ever used illegal drugs? Unknown Has never used illegal drugs 04/08/2017 Allergies, Adverse Reactions, Alerts Allergies, Adverse Reactions, Alerts data not found Past Medical History Illness Codes Condition Status Onset Date Resolved Date Encounter for general adult medical examination with abnormal findings ICD-9: V70.0 ICD-10: Z00.01 Active 09/30/2017 Unknown Other specified arthritis, right knee ICD-9: 716.36 ICD-10: M13.861 Active 09/30/2017 Unknown Other specified coagulation defects ICD-9: 286.9 ICD-10: D68.8 Active 09/30/2017 Unknown Activated protein C resistance ICD-9: 289.81 ICD-10: D68.51 Active 05/30/2017 Unknown Bilateral primary osteoarthritis of knee ICD-9: 715.96 ICD-10: M17.0 Active 04/08/2017 Unknown Urge incontinence ICD- 9: 788.31 ICD-10: N39.41 Active 05/30/2017 Unknown Personal history of other venous thrombosis and embolism ICD-9: V12.51 ICD-10: Z86.718 Active 04/08/2017 Unknown Problems Condition Codes Effective Dates Condition Status Encounter for general adult medical examination with abnormal findings ICD-9: V70.0 ICD-10: Z00.01 09/30/2017 Active Other specified arthritis, right knee ICD-9: 716.36 ICD-10: M13.861 09/30/2017 Active Other specified coagulation defects ICD-9: 286.9 ICD-10: D68.8 09/30/2017 Active Activated protein C resistance ICD-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 ICD-10: D68.51 05/30/2017 Active Bilateral primary osteoarthritis of knee ICD-9: 715.96 ICD-10: M17.0 04/08/2017 Active Urge incontinence ICD- 9: 788.31 ICD-10: N39.41 05/30/2017 Active Personal history of other venous thrombosis and embolism ICD-9: V12.51 ICD-10: Z86.718 04/08/2017 Active Medications Medication Codes Instructions Start Date Stop Date Status Fill Instructions Lovenox 40 mg/0.4 mL subcutaneous syringe RxNorm: 810875 1 injection SQ Q12H 09/30/2017 10/15/2017 Active Lovenox 40 mg/0.4 mL subcutaneous syringe RxNorm: 365724 1 Milliliter(s) SQ Q12H 05/09/2017 05/15/2017 Inactive Lovenox 40 mg/0.4 mL subcutaneous syringe RxNorm: 801674 1 Milliliter(s) SQ Q12H 05/09/2017 05/08/2017 Inactive oxybutynin chloride 5 mg tablet RxNorm: 897122 1 Tablet(s) PO daily No Start Date Active naproxen 500 mg tablet RxNorm: 458696 1 Tablet(s) PO daily No Start Date Active pantoprazole oral RxNorm: 33206 oral No Start Date Active oxybutynin chloride oral RxNorm: 80842 oral No Start Date 05/29/2017 Inactive Medication Administered No Medication Administered data Immunizations No Immunization data Assessments Condition Codes Effective Dates Other specified coagulation defects ICD-10: D68.8 ICD-9: 286.9 09/30/2017 Encounter for general adult medical examination with abnormal findings ICD-10: Z00.01 ICD-9: V70.0 09/30/2017 Other specified arthritis, right knee ICD-10: M13.861 ICD-9: 716.36 09/30/2017 Urge incontinence ICD-10: N39.41 ICD-9: 788.31 05/30/2017 Activated protein C resistance ICD-10: D68.51 ICD-9: 289.81 05/30/2017 Bilateral primary osteoarthritis of knee ICD-10: M17.0 ICD-9: 715.96 05/30/2017 Personal history of other venous thrombosis and embolism ICD -10: Z86.718 ICD-9: V12.51 05/15/2017 Reason For Visit Reason For Visit Effective Dates Notes pre-op/surgery consult 09/30/2017 Hospital Follow Up 05/30/2017 pre-op/surgery consult 04/08/2017 Results No Results data Review of Systems System Result Effective Dates Constitutional No recent illness 2017 Constitutional No anorexia 09/30/2017 Constitutional No night sweats 2017 Constitutional No chills 09/30/2017 Constitutional No diaphoresis 09/30/2017 Constitutional No fatigue 09/30/2017 Constitutional No fever 09/30/2017 Constitutional No insomnia 09/30/2017 Constitutional No malaise 09/30/2017 Constitutional No weight loss 09/30/2017 Constitutional No weight gain 09/30/2017 Ears/Nose/Throat/Neck No dizziness 2017 Ears/Nose/Throat/Neck No headache 2017 Cardiovascular No chest pain/pressure Cardiovascular No dyspnea 09/30/2017 Respiratory No cough 09/30/2017 Gastrointestinal No abdominal pain 2017 Gastrointestinal No constipation 2017 Gastrointestinal No diarrhea 09/30/2017 Genitourinary/Nephrology No dysuria 09/30 Musculoskeletal joint complaint 2017 Dermatologic No rash 09/30/2017 Dermatologic No sores 09/30/2017 Neurologic No alteration of consciousness 09/30/2017 Psychiatric No anxiety 09/30/2017 Psychiatric No depression 09/30/2017 Constitutional No recent illness 2016 Constitutional No anorexia 05/30/2017 Constitutional No night sweats 2016 Constitutional No chills 05/30/2017 Constitutional No diaphoresis 05/30/2017 Constitutional No fatigue 05/30/2017 Constitutional No fever 05/30/2017 Constitutional No insomnia 05/30/2017 Constitutional No weight loss 05/30/2017 Constitutional No weight gain 05/30/2017 Constitutional No malaise 05/30/2017 Cardiovascular No chest pain/pressure Cardiovascular No dyspnea 05/30/2017 Ears/Nose/Throat/Neck No dizziness 2016 Ears/Nose/Throat/Neck No headache 2016 Respiratory No cough 05/30/2017 Gastrointestinal No abdominal pain 2016 Genitourinary/Nephrology No dysuria 05/30 Gastrointestinal No constipation 2016 Gastrointestinal No diarrhea 05/30/2017 Musculoskeletal joint complaint 2016 Dermatologic No rash 05/30/2017 Dermatologic No sores 05/30/2017 Neurologic No alteration of consciousness 05/30/2017 Musculoskeletal joint complaint 2016 Genitourinary/Nephrology urinary frequency 04/08/2017 Constitutional No recent illness 2016 Constitutional No anorexia 04/08/2017 Constitutional No night sweats 2016 Constitutional No chills 04/08/2017 Constitutional No diaphoresis 04/08/2017 Constitutional No fatigue 04/08/2017 Constitutional No fever 04/08/2017 Constitutional No insomnia 04/08/2017 Constitutional No malaise 04/08/2017 Constitutional No weight loss 04/08/2017 Constitutional No weight gain 04/08/2017 Eyes No eye erythema 04/08/2017 Eyes No eye discharge 04/08/2017 Ears/Nose/Throat/Neck No dizziness 2016 Ears/Nose/Throat/Neck No headache 2016 Cardiovascular No chest pain/pressure 03/2017 Cardiovascular No dyspnea 04/08/2017 Cardiovascular No edema 04/08/2017 Cardiovascular No fatigue 04/08/2017 Respiratory No productive sputum 2016 Respiratory No cough 04/08/2017 Gastrointestinal No abdominal pain 2016 Gastrointestinal No constipation 2016 Gastrointestinal No diarrhea 04/08/2017 Dermatologic No rash 04/08/2017 Neurologic No alteration of consciousness 04/08/2017 Psychiatric No anxiety 04/08/2017 Endocrine No dry or coarse skin 2016 Hematologic/Lymphatic No abnormal ecchymoses 04/08/2017 Physical Exam Exam Name System Name Item Name Status Result Effective Dates Notes Full Exam - General 1994 Constitutional general appearance Overall: well developed 09/30/2017 None Full Exam - General 1994 Constitutional general appearance Overall: in no acute distress 09/30/2017 None Full Exam - General 1994 Constitutional general appearance Overall: well nourished 09/30/2017 None Full Exam - General 1994 Constitutional general appearance Assistive Device: walker 09/30/2017 None Full Exam - General 1994 Eyes conjunctiva /eyelids Overall: conjunctiva clear 09/30/2017 None Full Exam - General 1994 Eyes pupils and irises Overall: pupils equal, round, reactive to light and accomodation 09/30/2017 None Full Exam - General 1994 Ears/Nose/Throat otoscopic exam Overall: external auditory canals clear 09/30/2017 None Full Exam - General 1994 Ears/Nose/Throat otoscopic exam Overall: tympanic membranes clear 09/30/2017 None Full Exam - General 1994 Ears/Nose/Throat oral cavity/pharynx/larynx Overall: oral mucosa clear 09/30/2017 None Full Exam - General 1994 Respiratory auscultation Overall: breath sounds clear bilaterally 09/30/2017 None Full Exam - General 1994 Respiratory respiratory effort/rhythm Overall: no retractions 09/30/2017 None Full Exam - General 1994 Respiratory respiratory effort/rhythm Overall: normal rate 09/30/2017 None Full Exam - General 1994 Cardiovascular extremities Overall: no clubbing 09/30/2017 None Full Exam - General 1994 Cardiovascular auscultation of heart Overall: regular rate 09/30/2017 None Full Exam - General 1994 Cardiovascular auscultation of heart Overall: normal heart sounds 09/30/2017 None Full Exam - General 1994 Cardiovascular auscultation of heart Overall: no murmurs 09/30/2017 None Full Exam - General 1994 Abdomen abdominal exam Overall: no tenderness 09/30/2017 None Full Exam - General 1994 Abdomen abdominal exam Overall: normal bowel sounds 09/30/2017 None Full Exam - General 1994 Musculoskeletal lower extremity Inspection - knee: swelling 09/30/2017 surgical incision covered with occlusive dressing-no redness, drainage noted Full Exam - General 1994 Integument inspection of skin Overall: few scattered moles, no gross abnormalities 09/30/2017 None Full Exam - General 1994 Neurologic cranial nerves Overall: crainial nerves 2 - 12 grossly intact 09/30/2017 None Full Exam - General 1994 Psychiatric orientation/consciousness Overall: oriented to person, place and time 09/30/2017 None Full Exam - General 1994 Constitutional general appearance Overall: well developed 05/30/2017 None Full Exam - General 1994 Constitutional general appearance Overall: in no acute distress 05/30/2017 None Full Exam - General 1994 Constitutional general appearance Overall: well nourished 05/30/2017 None Full Exam - General 1994 Eyes conjunctiva /eyelids Overall: conjunctiva clear 05/30/2017 None Full Exam - General 1994 Eyes pupils and irises Overall: pupils equal, round, reactive to light and accomodation 05/30/2017 None Full Exam - General 1994 Ears/Nose/Throat otoscopic exam Overall: external auditory canals clear 05/30/2017 None Full Exam - General 1994 Ears/Nose/Throat otoscopic exam Overall: tympanic membranes clear 05/30/2017 None Full Exam - General 1994 Ears/Nose/Throat oral cavity/pharynx/larynx Overall: oral mucosa clear 05/30/2017 None Full Exam - General 1994 Respiratory auscultation Overall: breath sounds clear bilaterally 05/30/2017 None Full Exam - General 1994 Respiratory respiratory effort/rhythm Overall: no retractions 05/30/2017 None Full Exam - General 1994 Respiratory respiratory effort/rhythm Overall: normal rate 05/30/2017 None Full Exam - General 1994 Cardiovascular extremities Overall: no clubbing 05/30/2017 None Full Exam - General 1994 Cardiovascular auscultation of heart Overall: regular rate 05/30/2017 None Full Exam - General 1994 Cardiovascular auscultation of heart Overall: normal heart sounds 05/30/2017 None Full Exam - General 1994 Cardiovascular auscultation of heart Overall: no murmurs 05/30/2017 None Full Exam - General 1994 Abdomen abdominal exam Overall: no tenderness 05/30/2017 None Full Exam - General 1994 Abdomen abdominal exam Overall: normal bowel sounds 05/30/2017 None Full Exam - General 1994 Integument inspection of skin Overall: few scattered moles, no gross abnormalities 05/30/2017 None Full Exam - General 1994 Neurologic cranial nerves Overall: crainial nerves 2 - 12 grossly intact 05/30/2017 None Full Exam - General 1994 Psychiatric orientation/consciousness Overall: oriented to person, place and time 05/30/2017 None Full Exam - General 1994 Musculoskeletal lower extremity Inspection - knee: swelling 05/30/2017 surgical incision covered with occlusive dressing-no redness, drainage noted Full Exam - General 1994 Constitutional general appearance Assistive Device: walker 05/30/2017 None Full Exam - General 1994 Constitutional general appearance Overall: well developed 04/08/2017 None Full Exam - General 1994 Constitutional general appearance Overall: in no acute distress 04/08/2017 None Full Exam - General 1994 Constitutional general appearance Overall: well nourished 04/08/2017 None Full Exam - General 1994 Psychiatric orientation/consciousness Overall: oriented to person, place and time 04/08/2017 None Full Exam - General 1994 Neurologic cranial nerves Overall: crainial nerves 2 - 12 grossly intact 04/08/2017 None Full Exam - General 1994 Integument inspection of skin Overall: few scattered moles, no gross abnormalities 04/08/2017 None Full Exam - General 1994 Musculoskeletal lower extremity Palpation - knee: crepitus 04/08/2017 None Full Exam - General 1994 Abdomen abdominal exam Overall: no tenderness 04/08/2017 None Full Exam - General 1994 Abdomen abdominal exam Overall: normal bowel sounds 04/08/2017 None Full Exam - General 1994 Cardiovascular auscultation of heart Overall: no murmurs 04/08/2017 None Full Exam - General 1994 Cardiovascular auscultation of heart Overall: normal heart sounds 04/08/2017 None Full Exam - General 1994 Cardiovascular auscultation of heart Overall: regular rate 04/08/2017 None Full Exam - General 1994 Cardiovascular extremities Overall: no clubbing 04/08/2017 None Full Exam - General 1994 Respiratory auscultation Overall: breath sounds clear bilaterally 04/08/2017 None Full Exam - General 1994 Respiratory respiratory effort/rhythm Overall: no retractions 04/08/2017 None Full Exam - General 1994 Respiratory respiratory effort/rhythm Overall: normal rate 04/08/2017 None Full Exam - General 1994 Ears/Nose/Throat otoscopic exam Overall: external auditory canals clear 04/08/2017 None Full Exam - General 1994 Ears/Nose/Throat otoscopic exam Overall: tympanic membranes clear 04/08/2017 None Full Exam - General 1994 Ears/Nose/Throat oral cavity/pharynx/larynx Overall: oral mucosa clear 04/08/2017 None Full Exam - General 1994 Eyes conjunctiva /eyelids Overall: conjunctiva clear 04/08/2017 None Full Exam - General 1994 Eyes pupils and irises Overall: pupils equal, round, reactive to light and accomodation 04/08/2017 None Procedures No Procedures data Vital Signs Date Vital 09/30/2017 Blood Pressure 1: 138/88 Code : 8480-6 BMI: 34.7 Code : 13102-3 Heart Rate 1 : 73 bpm Height: 5'6" SpO2: 98% Weight: 215 lbs 05/30/2017 Blood Pressure 1: 134/82 Code : 8480-6 BMI: 35.2 Code : 56764-4 Heart Rate 1 : 101 bpm Height: 5'6" SpO2: 97% Weight: 218 lbs 04/08/2017 Blood Pressure 1: 136/84 Code : 8480-6 BMI: 35.5 Code : 56823-4 Heart Rate 1 : 86 bpm Height: 5'6" SpO2: 97% Weight: 220 lbs Functional Status No Functional Status data History of Present Illness Symptom Name Status Result Effective Date Notes pre-op/surgery consult Referred by Dr. Johnson 09/30/2017 None pre-op/surgery consult Procedure to be performed right total knee arthroplasty 09/30/2017 None pre-op/surgery consult Scheduled date of procedure 10/23/2017 09/30/2017 None pre-op/surgery consult Significant Medical Conditions factor V 09/30/2017 None Hospital Follow Up _ Other: knee replacement 05/30/2017 None Hospital Follow Up Location left knee replacement 05/30/2017 None Hospital Follow Up Onset of Symptom _ days ago 05/30/2017 None Hospital Follow Up Onset and Resolution ongoing 05/30/2017 None Hospital Follow Up Significant Medical Conditions knee replacement 05/30/2017 None Hospital Follow Up Alleviating Factors activity 05/30/2017 None Hospital Follow Up Alleviating Factors medication 05/30/2017 None Hospital Follow Up Pertinent Findings Denies fever 05/30/2017 None pre-op/surgery consult Referred by Dr. Johnson 04/08/2017 None pre-op/surgery consult Procedure to be performed left total knee replacement 04/08/2017 None pre-op/surgery consult Pertinent Findings pain 04/08/2017 None bone pain Location on the left leg 04/08/2017 None bone pain Location on the right leg 04/08/2017 OA bilateral knees bone pain Quality chronic 04/08/2017 None bone pain Onset and Resolution ongoing 04/08/2017 None bone pain Onset of Symptom _ months ago 04/08/2017 None bone pain Limitation on Activities moderately limits activities 04/08/2017 None bone pain Frequency of Episodes increasing 04/08/2017 None bone pain Triggers activity 04/08/2017 None bone pain Alleviating Factors rest 04/08/2017 None bone pain Exacerbating Factors activity 04/08/2017 None bone pain Pertinent Findings Denies abdominal complaints 04/08/2017 None bone pain Pertinent Findings Denies fever 04/08/2017 None bone pain Pertinent Findings Denies insomnia 04/08/2017 None bone pain Pertinent Findings stiffness 04/08/2017 None bone pain Pertinent Findings Denies weight loss 04/08/2017 None Advance Directives No Advance Directive data Encounters Encounter Performer Location Codes Date (30304) PREV VISIT EST AGE 40-64 Diagnosis: Other specified coagulation defects[ICD10: D68.8] Diagnosis: Other specified arthritis, right knee[ICD10: M13.861] Diagnosis: Encounter for general adult medical examination with abnormal findings[ICD10: Z00.01] Aisha Henson MD, [facility] CPT-4: 11556 09/30/2017 [id number] EST. PATIENT, LEVEL IV Diagnosis: Bilateral primary osteoarthritis of knee[ICD10: M17.0] Diagnosis: Urge incontinence[ICD10: N39.41] Diagnosis: Activated protein C resistance[ICD10: D68.51] Pam Henson MD, [facility] CPT-4: 52816 05/30/2017 ([id number]) Miscellaneous no charge Diagnosis: Personal history of other venous thrombosis and embolism[ICD10: Z86.718] Aisha Henson MD, [facility] CPT-4: 72770 2016 OFFICE VISIT, NEW - LEVEL 3 Diagnosis: Bilateral primary osteoarthritis of knee[ICD10: M17.0] Diagnosis: Personal history of other venous thrombosis and embolism[ICD10: Z86.718] Pam Henson MD, [facility] CPT-4: 51709 03/2017 Plan of Care Planned Activity Notes Codes Status Date Visit Plan: Well Adult - pt was counseled about diet, exercise, and encouraged to follow a heart healthy diet and increase activity level. The patient was instructed to RTC yearly for well adult exams and PRN for acute illnesses. The pt was also instructed to have yearly labs for check of cholesterol, thyroid, chem panel, CBC, and renal functioning. OA of right knee - Pt cleared medically for surgery - rx with clearance sent to Dr. Johnson' s office. Factor V leiden deficiency - Heterozygous - referral to Dr. Guan. RX for patient to use Lovenox during pre-operative period. Pt to use aspirin - enteric coated baby aspirin daily. 09/30/2017 Patient Education: Patient Medication Summary Completed 09/30/2017 Care Plan: Referral Order SNOMED-CT : [id number] Pending 09/30/2017 Visit Plan: DJD left knee-p/o total knee replacement by Dr Johnson-doing well-bere to be removed next week Factor V Leiden-continue xarelto x 2 weeks as DVT prophylaxis Urge incontinence-continue oxybutynin 05/30/2017 Appointment: Pam Lindquist WPtel: [address] [place] [address] (30 min) Complex 05/30/2017 Patient Education: Patient Medication Summary Completed 05/30/2017 Patient Education: Obesity Completed 05/30/2017 Appointment: Nurse Visit 05/15/2017 Patient Education: Patient Medication Summary Completed 05/15/2017 Visit Plan: OA bilateral knees-patient to have knee replacement surgery with Dr Johnson-will do blood disorder work up for HX DVT before clearance will be given. Lab order provided and will call patient will results when available. 04/08/2017 Appointment: Pam Lindquist WPtel: [facility] [place] [address] New Patient 04/08/2017 Patient Education: Patient Medication Summary Completed 04/08/2017 Referral: External, Ordering Provider Referral Appointment Requested Instructions Comment . OA bilateral knees-patient to have knee replacement surgery with Dr Johnson-will do blood disorder work up for HX DVT before clearance will be given. Lab order provided and will call patient will results when available. . DJD left knee-p/o total knee replacement by Dr Johnson- doing well-bere to be removed next week Factor V Leiden-continue xarelto x 2 weeks as DVT prophylaxis Urge incontinence-continue oxybutynin . Well Adult - pt was counseled about diet, exercise, and encouraged to follow a heart healthy diet and increase activity level. The patient was instructed to RTC yearly for well adult exams and PRN for acute illnesses. The pt was also instructed to have yearly labs for check of cholesterol, thyroid, chem panel, CBC, and renal functioning. OA of right knee - Pt cleared medically for surgery - rx with clearance sent to Dr. Johnson's office. Factor V leiden deficiency - Heterozygous - referral to Dr. Guan. RX for patient to use Lovenox during pre-operative period. Pt to use aspirin - enteric coated baby aspirin daily.
--- OUTSIDE RECORDS SUMMARY | 2017-10-23 06:04 | XMS REPORT | Continuity of Care Document ---
Author Author [facility] Organization [facility] Address Unknown Phone Unavailable Allergies Active Description Code Type Severity Reaction Onset Reported/Identified Relationship to Patient Clinical Status Yes No Known Drug Allergies [id number] Drug Allergy Unknown N/A 01/29/2017 Medications There is no data. Problems Date Dx Coded Attending Type Code Diagnosis Diagnosed By 08/01/1518 TIA PAREDES, NIALL Brock Ot Z47.1 AFTERCARE FOLLOWING JOINT REPLACEMENT WILLS 08/01/1518 TIA PAREDES, NIALL Brock Ot Z96.652 PRESENCE OF LEFT ARTIFICIAL KNEE JOINT 01/29/2017 GABE MOCK APRN Ot M17.12 UNILATERAL PRIMARY OSTEOARTHRITIS, LEFT 01/29/2017 GABE MOCK APRN Ot M23.92 UNSPECIFIED INTERNAL DERANGEMENT OF LEFT 01/29/2017 GABE MOCK GLAZE CARRIER Ot S89.92XA UNSPECIFIED INJURY OF LEFT LOWER LEG, IN 02/01/2017 GABE MOCK APRN Ot M17.12 UNILATERAL PRIMARY OSTEOARTHRITIS, LEFT 02/01/2017 GABE MOCK APRN Ot M23.92 UNSPECIFIED INTERNAL DERANGEMENT OF LEFT 02/01/2017 GABE MOCK GLAZE CARRIER Ot S89.92XA UNSPECIFIED INJURY OF LEFT LOWER LEG, IN 04/17/2017 MARKEL GUAN Ot Z01.812 ENCOUNTER FOR PREPROCEDURAL LABORATORY E 04/17/2017 MARKEL GUAN Ot Z86.718 PERSONAL HISTORY OF OTHER VENOUS THROMBO 04/17/2017 MARKEL GUAN Ot Z01.812 ENCOUNTER FOR PREPROCEDURAL LABORATORY E 04/17/2017 MARKEL GUAN Ot Z86.718 PERSONAL HISTORY OF OTHER VENOUS THROMBO 04/27/2017 MARKEL GUAN Ot Z01.812 ENCOUNTER FOR PREPROCEDURAL LABORATORY E 04/27/2017 MARKEL GUAN Ot Z86.718 PERSONAL HISTORY OF OTHER VENOUS THROMBO 05/16/2017 NIALL WEBER MD, Ot M17.12 UNILATERAL PRIMARY OSTEOARTHRITIS, LEFT 05/16/2017 NIALL WEBER MD, Ot R53.83 OTHER FATIGUE 05/16/2017 NIALL WEBER MD, Ot Z01.811 ENCOUNTER FOR PREPROCEDURAL RESPIRATORY 05/16/2017 NIALL WEBER MD, Ot Z01.812 ENCOUNTER FOR PREPROCEDURAL LABORATORY E 05/23/2017 NIALL WEBER MD, Ot D68.2 HEREDITARY DEFICIENCY OF OTHER CLOTTING 05/23/2017 NIALL WEBER MD, Ot K21.9 GASTRO-ESOPHAGEAL REFLUX DISEASE WITHOUT 05/23/2017 NIALL WEBER MD, Ot M17.12 UNILATERAL PRIMARY OSTEOARTHRITIS, LEFT 05/23/2017 NIALL WEBER MD, Ot N39.41 URGE INCONTINENCE 05/25/2017 NIALL WEBER MD, Ot D68.2 HEREDITARY DEFICIENCY OF OTHER CLOTTING 05/25/2017 NIALL WEBER MD, Ot K21.9 GASTRO-ESOPHAGEAL REFLUX DISEASE WITHOUT 05/25/2017 NIALL WEBER MD, Ot M17.12 UNILATERAL PRIMARY OSTEOARTHRITIS, LEFT 05/25/2017 NIALL WEBER MD, Ot N39.41 URGE INCONTINENCE 05/25/2017 NIALL WEBER MD, Ot 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 05/25/2017 NIALL WEBER MD, Ot Z86.718 PERSONAL HISTORY OF OTHER VENOUS THROMBO 06/11/2017 NIALL WEBER MD, Ot Z47.1 AFTERCARE FOLLOWING JOINT REPLACEMENT WILLS 06/11/2017 NIALL WEBER MD, Ot Z96.652 PRESENCE OF LEFT ARTIFICIAL KNEE JOINT 07/17/2017 NIALL WEBER MD, Ot Z47.1 AFTERCARE FOLLOWING JOINT REPLACEMENT WILLS 07/17/2017 NIALL WBEER MD, Ot Z96.652 PRESENCE OF LEFT ARTIFICIAL KNEE JOINT Procedures Code Description Performed By Performed On [id number] REPLACE OF L KNEE JT WITH SYNTH SUB, KATIE 05/22/2017 Results Test Result Range Complete blood count (CBC) with automated white blood cell (WBC) differential - 04/08/17 14:56 Blood leukocytes automated count (number/volume) 6.0 10*3/uL 4.3-11.0 Blood erythrocytes automated count (number/volume) 4.32 10*6/uL 4.35-5.85 Venous blood hemoglobin measurement (mass/volume) 14.0 g/dL 11.5-16.0 Blood hematocrit (volume fraction) 42 % 35-52 Automated erythrocyte mean corpuscular volume 96 [foz_us] 80-99 Automated erythrocyte mean corpuscular hemoglobin (mass per erythrocyte) 32 pg 25-34 Automated erythrocyte mean corpuscular hemoglobin concentration measurement ( mass/volume) 34 g/dL 32-36 Automated erythrocyte distribution width ratio 12.5 % 10.0-14.5 Automated blood platelet count (count/volume) 207 10*3/uL 130-400 Automated blood platelet mean volume measurement 10.8 [foz_us] 7.4-10.4 Automated blood neutrophils/100 leukocytes 50 % 42-75 Automated blood lymphocytes/100 leukocytes 39 % 12-44 Blood monocytes/100 leukocytes 7 % 0-12 Automated blood eosinophils/100 leukocytes 4 % 0-10 Automated blood basophils/100 leukocytes 1 % 0-10 Blood neutrophils automated count (number/volume) 3.0 10*3 1.8-7.8 Blood lymphocytes automated count (number/volume) 2.4 10*3 1.0-4.0 Blood monocytes automated count (number/volume) 0.4 10*3 0.0-1.0 Automated eosinophil count 0.2 10*3/uL 0.0-0.3 Automated blood basophil count (count/volume) 0.0 10*3/uL 0.0-0.1 Comprehensive metabolic panel - 04/08/17 14:56 Serum or plasma sodium measurement (moles/volume) 140 mmol/L 135-145 Serum or plasma potassium measurement (moles/volume) 3.8 mmol/L 3.6-5.0 Serum or plasma chloride measurement (moles/volume) 108 mmol/L 98-107 Carbon dioxide 23 mmol/L 21-32 Serum or plasma anion gap determination (moles/volume) 9 mmol/L 5-14 Serum or plasma urea nitrogen measurement (mass/volume) 20 mg/dL 7-18 Serum or plasma creatinine measurement (mass/volume) 0.72 mg/dL 0.60-1.30 Serum or plasma urea nitrogen/creatinine mass ratio 28 NRG Serum or plasma creatinine measurement with calculation of estimated glomerular filtration rate > NRG Serum or plasma glucose measurement (mass/volume) 85 mg/dL 70-105 Serum or plasma calcium measurement (mass/volume) 9.3 mg/dL 8.5-10.1 Serum or plasma total bilirubin measurement (mass/volume) 0.8 mg/dL 0.1-1.0 Serum or plasma alkaline phosphatase measurement (enzymatic activity/volume) 64 U/L 40-136 Serum or plasma aspartate aminotransferase measurement (enzymatic activity/ volume) 16 U/L 5-34 Serum or plasma alanine aminotransferase measurement (enzymatic activity/volume ) 13 U/L 0-55 Serum or plasma protein measurement (mass/volume) 7.0 g/dL 6.4-8.2 Serum or plasma albumin measurement (mass/volume) 4.0 g/dL 3.2-4.5 Protein C antigen assay - 04/08/17 14:56 Protein C antigen assay 106 % 63-153 Protein S measurement in platelet poor plasma by coagulation assay (units/ volume) - 04/08/17 14:56 Protein S measurement in platelet poor plasma by coagulation assay (units/ volume) 121 % 63-126 Von Willebrand factor antigen measurement - 04/08/17 14:56 Factor VIII (VW factor) antigen assay 130 % 50-160 Blood or tissue F5 gene p.R506Q detection by molecular genetics method - 14:56 Blood or tissue F5 gene p.R506Q detection by molecular genetics method Heterozygous Negative Coagulation factor 5 activated measurement (units/volume) in platelet poor plasma by coagulation assay See Footnote [facility] Methicillin resistant Staphylococcus aureus (MRSA) screening culture - 12:08 Methicillin resistant Staphylococcus aureus (MRSA) screening culture NEG [facility] Complete urinalysis with reflex to culture - 05/16/17 12:09 Urine color determination YELLOW NRG Urine clarity determination CLEAR NR Urine pH measurement by test strip 6 5-9 Specific gravity of urine by test strip 1.020 1.016- 1.022 Urine protein assay by test strip, semi-quantitative NEGATIVE NEGATIVE Urine glucose detection by automated test strip NEGATIVE NEGATIVE Erythrocytes detection in urine sediment by light microscopy 2+ NEGATIVE Urine ketones detection by automated test strip NEGATIVE NEGATIVE Urine nitrite detection by test strip POSITIVE NEGATIVE Urine total bilirubin detection by test strip NEGATIVE NEGATIVE Urine urobilinogen measurement by automated test strip (mass/volume) NORMAL NORMAL Urine leukocyte esterase detection by dipstick 1+ NEGATIVE Automated urine sediment erythrocyte count by microscopy (number/high power field) RARE G Automated urine sediment leukocyte count by microscopy (number/high power field ) [HPF] NRG Bacteria detection in urine sediment by light microscopy MODERATE NRG Squamous epithelial cells detection in urine sediment by light microscopy 2-5 NRG Crystals detection in urine sediment by light microscopy NONE NRG Casts detection in urine sediment by light microscopy NONE NRG Mucus detection in urine sediment by light microscopy NEGATIVE NRG Complete urinalysis with reflex to culture YES NRG Bacterial urine culture - 05/16/17 12:09 Bacterial urine culture [id number] NRG COLONY COUNT 10,000/ML - 100,000/ML NRG FTX;REPORTABLE SENSITIVITY NOT USUALLY PERFORMED FOR NRG URINE CULTURE RESULTS PLUS NRG FREE TEXT ENTRY 2 THIS ORGANISM. [facility] Bacterial susceptibility panel - 05/16/17 12:09 Gentamicin susceptibility test by minimum inhibitory concentration < = NRG Trimethoprim/sulfamethoxazole susceptibility test by minimum inhibitoryconcentration <= NRG Ampicillin susceptibility test by minimum inhibitory concentration < = NRG Tobramycin susceptibility test by minimum inhibitory concentration < = NRG Cefazolin susceptibility test by minimum inhibitory concentration < = NRG Ceftriaxone susceptibility test by minimum inhibitory concentration <= NRG Ampicillin/sulbactam susceptibility test by minimum inhibitory concentration <= NRG Piperacillin/tazobactam susceptibility test by minimum inhibitory concentration <= NRG Ciprofloxacin susceptibility test by minimum inhibitory concentration <= NRG Meropenem susceptibility test by minimum inhibitory concentration < = NRG Nitrofurantoin susceptibility test by minimum inhibitory concentration 32 NRG Aztreonam susceptibility test by minimum inhibitory concentration < = NRG Extended spectrum beta lactamase (ESBL) producing bacteria susceptibility test by minimum inhibitory concentration - NRG Complete blood count (CBC) with automated white blood cell (WBC) differential - 05/16/17 12:10 Blood leukocytes automated count (number/volume) 5.6 10*3/uL 4.3-11.0 Blood erythrocytes automated count (number/volume) 4.32 10*6/uL 4.35-5.85 Venous blood hemoglobin measurement (mass/volume) 14.3 g/dL 11.5-16.0 Blood hematocrit (volume fraction) 41 % 35-52 Automated erythrocyte mean corpuscular volume 96 [foz_us] 80-99 Automated erythrocyte mean corpuscular hemoglobin (mass per erythrocyte) 33 pg 25-34 Automated erythrocyte mean corpuscular hemoglobin concentration measurement ( mass/volume) 35 g/dL 32-36 Automated erythrocyte distribution width ratio 12.3 % 10.0-14.5 Automated blood platelet count (count/volume) 204 10*3/uL 130-400 Automated blood platelet mean volume measurement 10.8 [foz_us] 7.4-10.4 Automated blood neutrophils/100 leukocytes 49 % 42-75 Automated blood lymphocytes/100 leukocytes 39 % 12-44 Blood monocytes/100 leukocytes 8 % 0-12 Automated blood eosinophils/100 leukocytes 3 % 0-10 Automated blood basophils/100 leukocytes 1 % 0-10 Blood neutrophils automated count (number/volume) 2.8 10*3 1.8-7.8 Blood lymphocytes automated count (number/volume) 2.2 10*3 1.0-4.0 Blood monocytes automated count (number/volume) 0.4 10*3 0.0-1.0 Automated eosinophil count 0.2 10*3/uL 0.0-0.3 Automated blood basophil count (count/volume) 0.1 10*3/uL 0.0-0.1 PT panel in platelet poor plasma by coagulation assay - 05/16/17 12:10 Prothrombin time (PT) in platelet poor plasma by coagulation assay 12.5 s 12.2-14.7 INR in platelet poor plasma or blood by coagulation assay 0.9 0.8-1.4 Comprehensive metabolic panel - 05/16/17 12:10 Serum or plasma sodium measurement (moles/volume) 140 mmol/L 135-145 Serum or plasma potassium measurement (moles/volume) 3.7 mmol/L 3.6-5.0 Serum or plasma chloride measurement (moles/volume) 105 mmol/L 98-107 Carbon dioxide 28 mmol/L 21-32 Serum or plasma anion gap determination (moles/volume) 7 mmol/L 5-14 Serum or plasma urea nitrogen measurement (mass/volume) 19 mg/dL 7-18 Serum or plasma creatinine measurement (mass/volume) 0.81 mg/dL 0.60-1.30 Serum or plasma urea nitrogen/creatinine mass ratio 23 NRG Serum or plasma creatinine measurement with calculation of estimated glomerular filtration rate > NRG Serum or plasma glucose measurement (mass/volume) 100 mg/dL 70-105 Serum or plasma calcium measurement (mass/volume) 9.2 mg/dL 8.5-10.1 Serum or plasma total bilirubin measurement (mass/volume) 0.6 mg/dL 0.1-1.0 Serum or plasma alkaline phosphatase measurement (enzymatic activity/volume) 64 U/L 40-136 Serum or plasma aspartate aminotransferase measurement (enzymatic activity/ volume) 15 U/L 5-34 Serum or plasma alanine aminotransferase measurement (enzymatic activity/volume ) 13 U/L 0-55 Serum or plasma protein measurement (mass/volume) 7.1 g/dL 6.4-8.2 Serum or plasma albumin measurement (mass/volume) 4.0 g/dL 3.2-4.5 Erythrocyte sedimentation rate by westergren method - 05/16/17 12:10 Erythrocyte sedimentation rate by westergren method 7 mm 0-30 Blood type T Indirect antibody screen panel - 05/16/17 12:10 ABO+Rh group OP NRG Blood group antibody screen POSITIVE NRG Blood group antibodies identified - 05/16/17 12:10 Blood group antibodies identified E NRG Blood type T Indirect antibody screen panel - 05/22/17 06:26 ABO+Rh group OP NRG Transfusion band number [id number] NRG Blood group antibody screen POSITIVE NRG Blood group antibodies identified - 05/22/17 06:26 Blood group antibodies identified E NRG Whole blood hemoglobin and hematocrit panel - 05/23/17 05:45 Venous blood hemoglobin measurement (mass/volume) 12.2 g/dL 11.5-16.0 Blood hematocrit (volume fraction) 37 % 35-52 Whole blood basic metabolic panel - 05/23/17 05:45 Serum or plasma sodium measurement (moles/volume) 139 mmol/L 135-145 Serum or plasma potassium measurement (moles/volume) 3.4 mmol/L 3.6-5.0 Serum or plasma chloride measurement (moles/volume) 106 mmol/L 98-107 Carbon dioxide 24 mmol/L 21-32 Serum or plasma anion gap determination (moles/volume) 9 mmol/L 5-14 Serum or plasma urea nitrogen measurement (mass/volume) 16 mg/dL 7-18 Serum or plasma creatinine measurement (mass/volume) 0.76 mg/dL 0.60-1.30 Serum or plasma urea nitrogen/creatinine mass ratio 21 NRG Serum or plasma creatinine measurement with calculation of estimated glomerular filtration rate > NRG Serum or plasma glucose measurement (mass/volume) 130 mg/dL 70-105 Serum or plasma calcium measurement (mass/volume) 8.1 mg/dL 8.5-10.1 Whole blood hemoglobin and hematocrit panel - 05/24/17 05:02 Venous blood hemoglobin measurement (mass/volume) 11.5 g/dL 11.5-16.0 Blood hematocrit (volume fraction) 35 % 35-52 Complete urinalysis with reflex to culture - 05/24/17 11:45 Urine color determination YELLOW NRG Urine clarity determination CLEAR NRG Urine pH measurement by test strip 7 5-9 Specific gravity of urine by test strip 1.005 1.016- 1.022 Urine protein assay by test strip, semi-quantitative NEGATIVE NEGATIVE Urine glucose detection by automated test strip NEGATIVE NEGATIVE Erythrocytes detection in urine sediment by light microscopy NEGATIVE NEGATIVE Urine ketones detection by automated test strip NEGATIVE NEGATIVE Urine nitrite detection by test strip NEGATIVE NEGATIVE Urine total bilirubin detection by test strip NEGATIVE NEGATIVE Urine urobilinogen measurement by automated test strip (mass/volume) NORMAL NORMAL Urine leukocyte esterase detection by dipstick NEGATIVE NEGATIVE Automated urine sediment erythrocyte count by microscopy (number/high power field) RARE NRG Automated urine sediment leukocyte count by microscopy (number/high power field ) [HPF] NRG Bacteria detection in urine sediment by light microscopy NEGATIVE NRG Squamous epithelial cells detection in urine sediment by light microscopy >50 NRG Crystals detection in urine sediment by light microscopy NONE NRG Casts detection in urine sediment by light microscopy NONE NRG Mucus detection in urine sediment by light microscopy NEGATIVE NRG Complete urinalysis with reflex to culture NO NRG Renal epithelial cells detection in urine sediment by light microscopy NONE NRG Whole blood hemoglobin and hematocrit panel - 05/25/17 06:41 Venous blood hemoglobin measurement (mass/volume) 11.3 g/dL 11.5-16.0 Blood hematocrit (volume fraction) 33 % 35-52 Encounters ACCT No. Visit Date/Time Discharge Status Pt. Type Provider Facility Loc./Unit Complaint [id number] 10/09/2017 13:42:00 10/09/2017 23:59:59 CLS Preadmit ANDREW MARCUM MD [facility] ONC [id number] 08/23/2017 13:58:00 08/23/2017 15:19:00 DIS Outpatient NIALL WEBER MD [facility] REHAB TOTAL KNEE ARTHROPLASTY; LEFT [id number] 05/22/2017 06:00:00 05/25/2017 15:00:00 DIS Inpatient NIALL WEBER MD [facility] 4TH LEFT KNEE OSTEOARTHRITIS [id number] 05/16/2017 11:37:00 05/16/2017 12:30:00 DIS Outpatient NIALL WEBER MD [facility] PREOP LEFT KNEE OSTEOARTHRITIS [id number] 04/08/2017 14:39:00 04/08/2017 23:59:59 CLS Outpatient MARKEL GUAN [facility] LAB PRE SURGICAL CLEARANCE [id number] 01/29/2017 18:09:00 01/29/2017 21:18:00 DIS Emergency GABE MOCK APRN [facility] ER L KNEE WEAKNESS/PAIN [id number] 04/12/2014 16:51:00 04/12/2014 23:59:59 CLS Outpatient [id number] 10/23/2017 08:00:00 PEN Preadmit NIALL WEBER MD PRIMARY OSTEOARTHRITIS
[2017-10-23 06:20] VITALS: BP 145/97
[2017-10-23] MEDS ORDERED: fentaNYL INJECTION 100 MCG/2 ML AMP ONE ×3 (06:28→08:18)
[2017-10-23] MEDS ORDERED: ONDANSETRON 4 MG/2 ML (SDV) Z0FRAN ONE (06:28)
[2017-10-23] MEDS ORDERED: proPOfol 200 MG/20 ML (DIPRIVAN) VIAL IV ONE (06:28)
[2017-10-23] MEDS ORDERED: SEVOFLURANE (ULTANE) 15 ML INHAL SOLN ONE (06:28)
[2017-10-23] MEDS ORDERED: DEXAMETHASONE 10 MG/ML (DECADRON) 1 ML VIAL ONE (06:28)
[2017-10-23] MEDS ORDERED: MIDAZOLAM 2 MG/2 ML (VERSED) VIAL ONE (06:28)
[2017-10-23] MEDS ORDERED: LIDOCAINE PF 2% 5 ML (XYLOCAINE) VIAL ONE (06:28)
[2017-10-23] MEDS ORDERED: CEFUROXIME INJECTION 1,500 MG in NS (IVPB) 50 ML IV ONE (06:30)
[2017-10-23] MEDS ORDERED: CATHETER FLUSH 10 ML SYR IV PRN (06:45)
[2017-10-23] MEDS ORDERED: ENOX40DI13 SQ (06:50)
[2017-10-23] MEDS: LACTATED RINGERS 1,000 ML IV PRN ×2 (06:51→08:04)
[2017-10-23] MEDS ORDERED: FAMOTIDINE 20MG/2ML IV (PEPCID) ONE (06:58)
[2017-10-23] MEDS ORDERED: FAMOTIDINE 20MG/2ML IV (PEPCID) IV ONE (07:00)
[2017-10-23] MEDS ORDERED: ONDANSETRON 4 MG/2 ML (SDV) Z0FRAN IVP PRN ×2 (07:15→09:15)
[2017-10-23] MEDS ORDERED: diphenhydrAMINE 50 MG/ML INJ (BENADRYL) IVP PRN (07:15)
[2017-10-23] MEDS ORDERED: ACETAMINOPHEN 325 MG TABLET/CAPLET (TYLENOL) PO PRN (07:15)
--- NOTE | 2017-10-23 07:24 | Progress Note-Pre Operative ---
Pre-Operative Progress Note H&P Reviewed The H&P was reviewed, patient examined and no changes noted. Date Seen by Provider: Oct 23, 2017 Time Seen by Provider: 07:11 Date H&P Reviewed: Oct 23, 2017 Time H&P Reviewed: 07:10 Pre-Operative Diagnosis: right knee primary osteoarthritis NIALL WEBER MD Oct 23, 2017 07:24
--- NOTE | 2017-10-23 07:25 | Progress Note-Post Operative ---
Post-Operative Progess Note Surgeon (s)/Forest Examiner (s) Surgeon NIALL WEBER MD Forest Examiner: Arben Simons Pre-Operative Diagnosis right knee primary osteoarthritis Post-Operative Diagnosis right knee primary osteoarthritis Procedure & Operative Findings Date of Procedure 10/23/17 Procedure Performed/Findings right total knee arthroplasty Anesthesia Type GETA Estimated Blood Loss Estimated blood loss (mL): minimal Specimens/Packing Specimens Removed none Packing: none NIALL WEBER MD Oct 23, 2017 07:25
[2017-10-23] MEDS ORDERED: INTRA-ARTICULAR IU ONE ×5 (07:30)
[2017-10-23] MEDS ORDERED: OXYC-197 PO (09:05)
--- NOTE | 2017-10-23 09:08 | D/C HH Face to Face Order ---
D/C Face to Face Orders Instructions for Patient Patient Instructions/FollowUp: three weeks Physician to follow Patient: three weeks Discharge Diet for Home: Regular Diet Patient Data-Allergies,Ht & Wt Patient Allergies: Coded Allergies: No Known Drug Allergies (Unverified , 01/29/17) Height (Feet): 5 Height (Inches): 6.00 Weight (Pounds): 216 Weight (Ounces): 0.0 Home Health Need/Face to Face Date of Face to Face: Oct 23, 2017 Clinical Findings: Instability, Muscle weakness, Non or partial weight bearing , Pain with ambulation, Unsteady gait I have seen Pt [id number]: Yes Discharged To: Home Diagnosis/Conditions: right total knee arthroplasty Problems/Diagnosis/Condition: Patient is Homebound due to: Shannen fall risk due to instabilty, Pain w/ ambulation Homebound Status Due to the above stated illness, injury or surgical procedure (medical condition or diagnosis) and associated clinical findings, the patient is homebound because of his/her inability to leave home except with aid of a supportive device and/or person AND leaving the home requires a considerable and taxing effort or is medically contraindicated. Pt req the following assistanc: [facility] Nursing Orders Home Health Services Order: Physical Therapy-Evaluate & Treat Home Health Infusion Therapy Line Start Date: Oct 23, 2017 Line Start Time: 619 Line Type: Peripheral IV Site Location: Antecubital Therapy Orders Therapy Orders: Physical Therapy, PT to assess for OT Certify Stmt I certify that this patient is under my care and that I, a nurse practitioner or a physician; a bilingual medical assistant working with me, had a face to face encounter that - meets the physician face to face encounter requirements with this patient as dated. NIALL WEBER MD Oct 23, 2017 09:08
[2017-10-23] MEDS ORDERED: fentaNYL INJECTION 100 MCG/2 ML AMP IVP PRN (09:15)
[2017-10-23] MEDS: morphine INJ 10 MG/ML 1ML (SYR OR VIAL) IVP PRN ×2 (09:15→09:22)
[2017-10-23] MEDS ORDERED: HYDROmorphone (DILAUDID) 2 MG/ML VIAL IVP PRN (09:15)
--- NOTE | 2017-10-23 09:33 | Diagnostic Imaging Report ---
INDICATION: Right knee surgery. AP and lateral views of the right knee are obtained. FINDINGS: There has been recent total right knee arthroplasty with fluid and gas in the joint. Prosthetic components are well aligned. No fracture is detected. IMPRESSION: No evidence of complication related to recent total right knee arthroplasty. Dictated by: Dictated on workstation # [id number]
--- NOTE | 2017-10-23 09:39 | OPERATIVE REPORT ---
DATE OF SERVICE: 10/23/2017 PREOPERATIVE DIAGNOSIS: Right knee primary osteoarthritis. POSTOPERATIVE DIAGNOSIS: Right knee primary osteoarthritis. PROCEDURE: Right total knee arthroplasty. SURGEONS: Dr. Jayden Weber [employer] DETAILER: JEFERSON Rose, who assisted throughout the procedure and closed the incision. ANESTHESIA: General endotracheal by Socorro Stovall CRNA. TOURNIQUET TIME: Approximately 60 minutes at 300 mmHg. ESTIMATED BLOOD LOSS: Minimal. DRAINS: None. COMPLICATIONS: None. POSTOPERATIVE PLAN: Routine protocol. The patient was transported to the recovery room awake and in stable condition. MATERIALS: MicroPort cemented size 5 femur with cemented size 5 tibia and a 10 mm insert and a cemented size 32 patella. STATEMENT OF MEDICAL NECESSITY: The patient is a 62-year-old female with longstanding progressive right knee pain. Radiographs revealed severe medial and patellofemoral arthrosis. She has undergone treatment with injections, anti-inflammatories and rest without relief and due to progressive symptoms and activity limitations the patient elected to proceed with surgical intervention. PROCEDURE: After risks and benefits of the procedure were discussed and questions were answered and informed consent was signed and placed on the chart. The operative site was confirmed in the preoperative hold area initialed by the surgeon. The patient was then transferred to the operating room and after adequate levels of general endotracheal anesthetic were obtained a timeout was called confirming the operative site. The right lower extremity was then prepped and draped in the usual sterile fashion with the leg elevated and the knee flexed, the tourniquet inflated to 300 mmHg. Standard anterior approach was utilized. Hemostasis was obtained with cautery. A medial parapatellar arthrotomy was performed leaving 1 cm cuff on the patellar for later reattachment. A portion of the fat pad was resected and a subperiosteal release was performed in the proximal medial tibia with curved osteotome being careful to stay on the bony surface. The ACL was resected. Intramedullary guide was passed into the femur and the distal cutting block was placed. The distal cut was made and the femur sized to a size 5, the 5 cutting block was placed parallel to the epicondylar axis and cuts were made from posterior to anterior. A subperiosteal release was then carefully performed on the posterior distal femur, being careful to stay on the bony surface. The intramedullary guide was then passed into the tibia. The cutting block was placed. The drop severino transected the intermalleolar axis and the cut was made at the baseplate. The five baseplate was placed which provided excellent coverage. The drop severino again transected the intermalleolar axis. This was pinned into position and prepared with the drill and keel punch. The tibial trial was placed and the trochlear cut was made. The trials were inserted and the patella was then prepared using the free hand technique by resecting 10 mm off the undersurface. The peg guide was placed and peg holes were drilled. The patellar button trial was placed. The knee was taken through range of motion. Full extension was easily obtained greater than 120 degrees of flexion with gravity was easily obtained. The patella tracked well. There was no anterior/posterior or medial/lateral laxity in flexion or extension. The trials were removed. The joint was copiously irrigated with pulse lavage. The periarticular block was placed in the posterior capsule, medial and lateral retinaculum extensor mechanism and subcutaneous tissues and the bone ends were irrigated and dried and the tibial baseplate was cemented into position. Excess cement was removed. The superior surface was irrigated and dried and the polyethylene insert was placed. Distal femur was irrigated and dried and the femoral prosthesis was cemented into position. Excessive cement was removed. Once the knee was brought in full extension the patella undersurface was irrigated and dried and the patellar button was cemented in position. Once the cement had dry, the knee was taken through range of motion, the patella tracked well. There was no anterior/posterior or medial/lateral laxity in flexion or extension. Full extension was easily obtained, greater than 120 degrees of flexion was obtained with gravity. The joint was further irrigated with pulse lavage. Arthrotomy was closed with #2 Tevdek in [id number] interrupted fashion. The knee was flexed. The repair was stable and the patella tracked well. The subcutaneous tissues were irrigated and dried. A 0 Vicryl was used for deep subcutaneous tissue, 2-0 Vicryls for the superficial subcutaneous tissue, bere, used on the skin. A total of 6 liters of irrigation were used throughout the procedure. A soft dressing was applied. The tourniquet was deflated and the patient was transferred to the recovery room awake and stable condition. Job ID: [id number] DocumentID: [id number] Dictated Date: 10/23/2017 09:06:54 Outsole Splicer Date: 10/23/2017 09:38:12 Dictated By: JAYDEN WEBER MD
[2017-10-23 10:00] VITALS: BP 142/72
[2017-10-23] MEDS: NS IV 1000 ML 1,000 ML IV SCH ×3 (10:53→23:22)
[2017-10-23] MEDS: SENNA W/DOCUSATE (SENOKOT S) TABLET PO SCH ×2 (10:53→19:27)
--- NOTE | 2017-10-23 10:56 | Progress Note-Standard ---
Standard Progress Note Progress Notes/Assess & Plan Date Seen by Provider: Oct 23, 2017 Time Seen by Provider: 09:15 Progress/Assessment & Plan post op check No complaints Radiographs--HW well positioned. No fxs RLE--2 plus DP pulse with brisk cap refill. Sensation intact throughout. intact DF and PF of toes and ankle s/p RTKA doing well mobilize as able NIALL WEBER MD Oct 23, 2017 10:56
[2017-10-23] MEDS: morphine PCA 30 MG/30 ML VIAL IV PRN (11:07)
[2017-10-23 12:00] VITALS: BP 123/73
[2017-10-23] MEDS ORDERED: INFLUENZA TRIvalent 2017-2018 0.5 ML/45 MCG SYR IM ONE ×2 (13:30→15:50)
--- NOTE | 2017-10-23 13:45 | Physical Therapy Evaluation ---
PT Evaluation-General Medical Diagnosis Admission Date Oct 23, 2017 at 05:59 Medical Diagnosis: R TKA Onset Date: Oct 23, 2017 Therapy Diagnosis Therapy Diagnosis: Impaired functional mobility, strength, ROM Height/Weight Height (Feet): 5 Height (Inches): 6.00 Weight (Pounds): 216 Weight (Ounces): 0.0 Precautions Precautions/Isolations: Fall Prevention, Standard Precautions Weight Bear Status Right Lower Extremity: Right Weight Bearing/Tolerated Left Lower Extremity: Left Weight Bearing/Tolerated Referral Physician: Jayden Johnson MD Reason for Referral: Evaluation/Treatment Medical History Pertinent Medical History: GERD Additional Medical History DVT Surgery: L 5th digit pinning with partial amputation, hysterectomy, L TKA Current History Pt received R TKA on 10/23/17 after c/o progressively worse pain and loss of medial and patellofemoral joint spaces. Reviewed History: Yes Social History Home: Single Level Current Living Status: Alone Entry Into Home: Stairs With Railing PT Steps Into Home: 6 PT Steps Inside Home: 0 Prior/Core FIM Prior Level of Function Functional [place] Measure 0=Not Assessed/NA 4=Minimal Assistance 1=Total Assistance 5=Supervision or Setup 2=Maximal Assistance 6=Modified [place] 3=Moderate Assistance 7=Complete [place] Bed Mobility: 7 Transfers (B,C,W/C) (FIM): 7 Gait: 7 Locomotion: 7 Wheelchair Mobility: 7 PT Evaluation-Current Subjective Pt is on bedside commode pre eval with pain rated at 6/10 and agrees to PT. Pain Numeric Pain Scale: 6 Location: Right Location Body Site: Knee Pt/Family Goals independent at home Objective Patient Orientation: Normal For Age Attachments: SCD's (BLE), Polar Pack (RLE), IV ROM/Strength ROM Lower Extremities LLE: WFL RLE: 70 degrees of knee flexion and +10 degrees of knee extension (10-70 degrees ) Strength Lower Extremities RLE: NT due to recent surgery. LLE: 4+/5 grossly Neuromuscular (Tone, Coordination, Reflexes) NT Sensory Vision: Functional Hearing: Functional Sensation Right Lower Extremit: Intact Sensation Left Lower Extremity: Intact Transfers Functional [place] Measure 0=Not Assessed/NA 4=Minimal Assistance 1=Total Assistance 5=Supervision or Setup 2=Maximal Assistance 6=Modified [place] 3=Moderate Assistance 7=Complete [place] Transfers (B, C, W/C) (FIM): 4 Scootin Rollin Supine to/from Sit: 5 Sit to/from Stand: 4 SBA for bed mobility and CGA for transfers. Gait Mode of Locomotion: Walk Anticipated Mode of Locomotion: Walk Gait (FIM): 4 Distance: 150 feet Gait Level of Assist: 4 Gait Persons Needed: 1 Gait Assistive Device: FWW Comments/Gait Description Pt not yet achieving full knee extension of the LLE during gait. Slow antalgic ambulation but good step through. Balance Sitting Static: Normal Sitting Dynamic: Normal Standing Static: Good Standing Dynamic: Good Treatment Ankle pumps: 15 x2 BLE Assessment/Needs CPM placed at 46 degrees of knee flexion and -2 degrees of knee extension. Pt ambulates with CGA for 150 feet with FWW and has no reports of increased pain after session. Pt would benefit from formal PT services to improve ROM, functional mobility, and activity tolerance. Pt is laying in bed post eval with nurse call, phone, and tray within reach. CPM is on the R knee and SCD on the L calf and R foot. Rehab Potential: Fair Equipment Needs FWW PT Short Term Goals Short Term Goals Time Frame: Oct 30, 2017 Transfers (B,C,W/C) (FIM): 5 Gait (FIM): 5 Gait Distance Comment: 200 feet Gait Level of Assist: 5 Gait Assistive Device: FWW Stairs (FIM): 2 # of Steps: 4 Stairs Level of Assist: 4 PT Plan Problem List Problem List: Activity Tolerance, Functional Strength, Safety, Balance, Gait, Transfer, Bed Mobility, ROM Treatment/Plan Treatment Plan: Continue Plan of Care Treatment Plan: Bed Mobility, Education, Functional Activity Nella, Functional Strength, Gait, Safety, Therapeutic Exercise, Transfers Treatment Duration: Oct 30, 2017 Frequency: 11 times per week Estimated Hrs Per Day: .25 hour per day (15-30 min) Patient and/or Family Agrees t: Yes Safety Risks/Education Patient Education: Gait Training, Transfer Techniques, Reviewed Precautions, Correct Positioning, W/C Management, Disease Process, Safety Issues Teaching Recipient: Patient Teaching Methods: Demonstration, Discussion Response to Teaching: Reinforcement Needed Discharge Recommendations Plan Pt will perform gait and stair training, bed mobility and transfer training, balance, ROM, and activity tolerance training in order to promote independence at home. Therapy D/C Recommendations: Home w/ Family Support, Home Independently Equpiment Recommendations-D/C: Front Wheeled Walker Time/GCodes Time In: 1310 Time Out: 1335 Total Billed Treatment Time: 25 Total Billed Treatment 1 visit 15 min SAMIAL 10' GT ASHA BAKER PT Oct 23, 2017 13:45
[2017-10-23] MEDS: CEFUROXIME INJECTION 750 MG in NS (IVPB) 50 ML IV SCH ×2 (15:57→23:22)
[2017-10-23 16:00] VITALS: BP 99/56
[2017-10-23 20:00] VITALS: BP 124/57
[2017-10-23] MEDS: oxyCODONE/APAP 5/325MG (PERCOCET 5) TABLET PO PRN (23:20)
[2017-10-23 23:56] VITALS: BP 110/62
[2017-10-24 04:12] VITALS: BP 107/62
[2017-10-24 06:09] LABS: HEMOGLOBIN 11.8 G/DL (11.5-16.0)
[2017-10-24] MEDS: MULTIVIT W/MINERALS TAB (THERAGRAN M) PO SCH (06:10)
[2017-10-24] MEDS: oxyCODONE/APAP 5/325MG (PERCOCET 5) TABLET PO PRN ×5 (06:10→19:51)
--- NOTE | 2017-10-24 07:56 | Progress Note-Standard ---
Standard Progress Note Progress Notes/Assess & Plan Date Seen by Provider: Oct 24, 2017 Time Seen by Provider: 07:55 Progress/Assessment & Plan post op check No complaints Radiographs--HW well positioned. No fxs RLE--2 plus DP pulse with brisk cap refill. Sensation intact throughout. intact DF and PF of toes and ankle s/p RTKA doing well mobilize as able Final Diagnosis No complaints Vital Signs Date Time Temp Pulse Resp B/P (MAP) Pulse Ox O2 Delivery O2 Flow Rate FiO2 10/24/17 07:54 Room Air 10/24/17 07:44 18 10/24/17 04:12 98.6 72 18 107/62 (77) 97 Room Air 10/23/17 23:56 99.1 82 18 110/62 (78) 97 Room Air 10/23/17 20:00 98.0 75 18 124/57 (79) 96 Room Air 10/23/17 20:00 Room Air 10/23/17 16:00 97.7 73 20 99/56 (70) 96 Room Air 10/23/17 14:46 Room Air 10/23/17 12:00 97.6 81 20 123/73 (90) 95 Room Air 10/23/17 11:07 16 10/23/17 10:00 97.2 84 20 142/72 (95) 96 Room Air 10/23/17 10:00 Room Air I & O 10/24/17 07:00 Intake Total 4610 ml Output Total 1150 ml Balance 3460 ml Laboratory Tests Test 10/24/17 06:00 Range/Units Hemoglobin 11.8 11.5-16.0 G/DL Hematocrit 35 35-52 % RLE--dressing intact. NVI distally. no calf tenderness s/p RTKA PT/OT NIALL WEBER MD Oct 24, 2017 07:56
[2017-10-24 08:00] VITALS: BP 118/68
[2017-10-24] MEDS ORDERED: ENOXAPARIN 30 MG/0.3 ML (LOVENOX) SYR SC SCH (08:00)
--- NOTE | 2017-10-24 08:36 | Consultation ---
History of Present Illness History of Present Illness Patient Consulted On([place]/time) 10/24/17 08:30 Date Seen by Provider: Oct 24, 2017 Time Seen by Provider: 08:30 Reason for Visit: osteoarthritis with need for RIGHT knee replacement History of Present Illness PT IS A 62 Y/O FEMALE WHO IS KNOWN TO ME FROM CLINIC. SHE HAS HISTORY OF OSTEOARTHRITIS OF BILATERAL KNEES -IN 2016 - SHE HAD THE LEFT KNEE REPLACED AND HAS TRIED CONSERVATIVE MEASURES TO CONTROL HER RIGHT KNEE PAIN, BUT HAS NOT HAD SUCCESSFUL CONTROL OF HER DISCOMFORT AND HAS ELECTED TO HAVE THE RIGHT KNEE REPLACED WELL. Allergies and Home Medications Allergies Coded Allergies: No Known Drug Allergies (Unverified , 01/29/17) Home Medications Naproxen 500 Mg Tablet, 500 MG PO DAILY, (Reported) Oxybutynin Chloride 5 Mg Tablet, 5 MG PO DAILY, (Reported) prescribed BID but only take daily Oxycodone HCl/Acetaminophen 1 Each Tablet, 1 EACH PO Q4H, #60 Prescribed by: NIALL WEBER on 10/23/17 0905 Pantoprazole Sodium 40 Mg Tablet.dr, 40 MG PO DAILY, (Reported) Rivaroxaban 10 Mg Tablet, 10 MG PO DAILY for 14 Days, #14 pt to black pickler samples from dr. arrieta's office today - if she does not, then will need to fill this rx Prescribed by: ATUL ARRIETA on 10/25/17 0948 Past Grlfnvs-Zavxky-Svposo Hx Patient Social History Alcohol Use: Denies Use Recreational Drug Use: No Smoking Status: Never a Smoker Recent Foreign Travel: No Contact w/Someone Who Travel: No Recent Infectious Disease Expo: No Recent Hopitalizations: No Immunizations Up To Date Date of Influenza Vaccine: Oct 23, 2017 Seasonal Allergies Seasonal Allergies: No Surgeries History of Surgeries: Yes (cysoscopy, kidney bx, ) Surgeries: Hysterectomy, Orthopedic Respiratory History of Respiratory Disorde: No Currently Using CPAP: No Currently Using BIPAP: No Cardiovascular History of Cardiac Disorders: No Neurological History of Neurological Disord: No Reproductive System : No Genitourinary History of Genitourinary Disor: Yes (hx of WBC in urine-tested no reason found) Gastrointestinal History of Gastrointestinal Di: No Musculoskeletal History of Musculoskeletal Dis: Yes (dvt behind both knees) Musculoskeletal Disorders: Arthritis Endocrine History of Endocrine Disorders: No HEENT History of HEENT Disorders: No Cancer History of Cancer: No Psychosocial History of Psychiatric Problem: No Integumentary History of Skin or Integumenta: No Blood Transfusions History of Blood Disorders: Yes (FACTOR V LEIDEN ) Family Medical History Significant Family History: Heart Disease, Cancer, COPD Family Medial History: Arthritis 19 MOTHER Respiratory disorder 19 FATHER (lung cancer) Physical Exam-General Problems Physical Exam Vital Signs Vital Signs - First Documented 10/23/17 06:20 Temp 98.6 Pulse 93 Resp 18 B/P (MAP) 145/97 (113) Pulse Ox 98 O2 Delivery Room Air Capillary Refill : Less Than 3 Seconds General Appearance: WD/WN, no apparent distress Eyes: Bilateral Eye Normal Inspection, Bilateral Eye PERRL, Bilateral Eye EOMI HEENT: PERRL/EOMI, pharynx normal Neck: non-tender, supple, normal inspection Respiratory: chest non-tender, lungs clear, normal breath sounds, no respiratory distress, no accessory muscle use Cardiovascular: regular rate, rhythm Gastrointestinal: normal bowel sounds, non tender, soft Back: normal inspection Extremities: normal range of motion, normal capillary refill, other (right knee with surgical dressing in place) Neurologic/Psychiatric: pattern maker programer II-XII nml as tested, alert, normal mood/affect, oriented x 3 Assessment/Plan Assessment/Plan Admission Diagnosis/Plan RIGHT KNEE OSTEOARTHRITIS HX OF DVT 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 MOST LIKELY WILL BENEFIT FROM THERAPY OUTPATIENT - WILL NEED HOME HEALTH FOR A SHORT TIME, THEN TRANSITION TO OUTPATIENT THERAPY. GERD - RESTART PPI URGE INCONTINENCE - RESTART OXYBUTYNIN FACTOR V LEIDEN DEFICIENCY - CHRONIC - CONTINUE WITH LOVENOX WHILE IN HOSPITAL. WILL NEED TO START XARELTO (10MG DAILY X 2 WEEKS) ON DISCHARGE PROPHYLAXIS AGAINST DVT FOR A SHORT DURATION OUTPATIENT WHILE RECOVERING FROM KNEE SURGERY. I APPRECIATE THE CONSULT. Clinical Quality Measures DVT/VTE Risk/Contraindication: Risk Factor Score Per Nursin RFS Level Per Nursing on Admit: 4+=Very High ATUL ARRIETA MD Oct 24, 2017 08:36
[2017-10-24] MEDS: ASPIRIN E.C. 81 MG (ECOTRIN) TAB PO SCH ×2 (09:00→09:23)
[2017-10-24] MEDS: OXYBUTYNIN (DITROPAN) 5 MG TAB PO SCH ×2 (09:00→09:23)
--- NOTE | 2017-10-24 09:07 | Physical Therapy Daily Note ---
PT Daily Note-Current Subjective Patient is very agreeable to participate with PT. Pain Numeric Pain Scale: 5-Moderate Pain Location: Right Location Body Site: Knee Pain Description: Acute Mental Status Patient Orientation: Normal For Age Attachments: Polar Pack, IV Transfers Functional [place] Measure 0=Not Assessed/NA 4=Minimal Assistance 1=Total Assistance 5=Supervision or Setup 2=Maximal Assistance 6=Modified [place] 3=Moderate Assistance 7=Complete IndependenceIRFPAI Quality Coding Scale 6 Independent with activity with or without an assistive device 5 Patient requires set up or clean up by helper. Patient completes activity by themselves 4 Supervision or touching assist (CGA). [place] provide cues , steadying assist 3 The helper provides less than half the effort to complete the activity 2 The helper provides more than half the effort to complete the activity 1 Dependent. The helper does all the effort to complete an activity 7 Patient refused to complete or attempt activity 9 The patient did not perform the activity before the current illness or injury 88 Not attempted due to Medical conditions or safety concerns Transfers (B, C, W/C) (FIM): 5 Scootin Rollin Supine to/from Sit: 5 Sit to/from Stand: 5 Weight Bearing Right Lower Extremity: Right Weight Bearing/Tolerated Left Lower Extremity: Left Weight Bearing/Tolerated Gait Training Gait (FIM): 5 Distance (FIM): 3=150 ft Distance: 250' Gait Level of Assist: 5 Gait Assistive Device: FWW reciprocal pattern with FWW Exercises Supine Ex: Ankle pumps, Quad Set, Heel Slides Supine Reps: 15 Seated Therapy Exercises: Ankle pumps, Long arc quads Seated Reps: 15 Assessment Patient progressing with treatment plan. Patient voices understanding with exercises and performing them PRN. PT Short Term Goals Short Term Goals Time Frame: Oct 30, 2017 Transfers (B,C,W/C) (FIM): 5 Gait (FIM): 5 Gait Distance Comment: 200 feet Gait Level of Assist: 5 Gait Assistive Device: FWW Stairs (FIM): 2 # of Steps: 4 Stairs Level of Assist: 4 PT Plan Treatment/Plan Treatment Plan: Continue Plan of Care Treatment Plan: Bed Mobility, Education, Functional Activity Nella, Functional Strength, Gait, Safety, Therapeutic Exercise, Transfers Treatment Duration: Oct 30, 2017 Frequency: 11 times per week Estimated Hrs Per Day: .25 hour per day (15-30 min) Patient and/or Family Agrees t: Yes Time/GCodes Time In: 840 Time Out: 903 Total Billed Treatment Time: 23 Total Billed Treatment 1 visit EX 15 min GT 8 min CORY BYRNE PT Oct 24, 2017 09:07
[2017-10-24] MEDS: SENNA W/DOCUSATE (SENOKOT S) TABLET PO SCH ×2 (09:23→19:51)
[2017-10-24] MEDS: PANTOPRAZOLE 40 MG (PROTONIX) TAB PO SCH (09:23)
[2017-10-24] MEDS ORDERED: RIVAROXABAN 10 MG TABLET (XARELTO) ONE (09:30)
[2017-10-24] MEDS ORDERED: RIVAROXABAN 10 MG TABLET (XARELTO) PO SCH (09:30)
[2017-10-24 11:32] VITALS: BP 115/63
[2017-10-24] MEDS: NS IV 1000 ML 1,000 ML IV SCH (12:20)
--- NOTE | 2017-10-24 14:02 | Anesthesia-General Post-Op ---
General Patient Condition Mental Status/LOC: Same as Preop Cardiovascular: Satisfactory Nausea/Vomiting: Absent Respiratory: Satisfactory Pain: Controlled Complications: Absent Post Op Complications Complications None Follow Up Care/Instructions Patient Instructions None needed. Anesthesia/Patient Condition Patient Condition Patient is doing well, no complaints, stable vital signs, no apparent adverse anesthesia problems. No complications reported per nursing. KING FONTANA CRNA Oct 24, 2017 14:02
--- NOTE | 2017-10-24 14:05 | Physical Therapy Daily Note ---
PT Daily Note-Current Subjective Patient is up in recliner and agrees to PT. Pain Numeric Pain Scale: 5-Moderate Pain Location: Right Location Body Site: Knee Pain Description: Acute Mental Status Patient Orientation: Normal For Age Attachments: IV Transfers Functional [place] Measure 0=Not Assessed/NA 4=Minimal Assistance 1=Total Assistance 5=Supervision or Setup 2=Maximal Assistance 6=Modified [place] 3=Moderate Assistance 7=Complete IndependenceIRFPAI Quality Coding Scale 6 Independent with activity with or without an assistive device 5 Patient requires set up or clean up by helper. Patient completes activity by themselves 4 Supervision or touching assist (CGA). [place] provide cues , steadying assist 3 The helper provides less than half the effort to complete the activity 2 The helper provides more than half the effort to complete the activity 1 Dependent. The helper does all the effort to complete an activity 7 Patient refused to complete or attempt activity 9 The patient did not perform the activity before the current illness or injury 88 Not attempted due to Medical conditions or safety concerns Transfers (B, C, W/C) (FIM): 6 Scootin Sit to/from Stand: 6 Weight Bearing Right Lower Extremity: Right Weight Bearing/Tolerated Left Lower Extremity: Left Weight Bearing/Tolerated Gait Training Gait (FIM): 6 Distance (FIM): 3=150 ft Distance: 325' Gait Level of Assist: 6 Gait Assistive Device: FWW slow, steady gait sequence Exercises Seated Therapy Exercises: Ankle pumps, Long arc quads Seated Reps: 15 (2 sets) Assessment Current Status: Excellent Progress Patient remained up in recliner with needs met. PT encouraged patient to have staff place CPM when in bed. PT Short Term Goals Short Term Goals Time Frame: Oct 30, 2017 Transfers (B,C,W/C) (FIM): 5 Gait (FIM): 5 Gait Distance Comment: 200 feet Gait Level of Assist: 5 Gait Assistive Device: FWW Stairs (FIM): 2 # of Steps: 4 Stairs Level of Assist: 4 PT Plan Treatment/Plan Treatment Plan: Continue Plan of Care Treatment Plan: Bed Mobility, Education, Functional Activity Nella, Functional Strength, Gait, Safety, Therapeutic Exercise, Transfers Treatment Duration: Oct 30, 2017 Frequency: 11 times per week Estimated Hrs Per Day: .25 hour per day (15-30 min) Patient and/or Family Agrees t: Yes Time/GCodes Time In: 1327 Time Out: 1345 Total Billed Treatment Time: 18 Total Billed Treatment 1 visit FA 18 min CORY BYRNE PT Oct 24, 2017 14:05
--- NOTE | 2017-10-24 15:08 | Occ Therapy Progress Note ---
Therapy Progress Note OT order received. Chart reviewed. Pt. up in chair. Pt. states that she does not need OT at this time. States that she has been able to toilet self and feels that she will have no issues with LE bathing or dressing. Pt. states that she will get PT "like last time" when she goes home. Pt. states that her daughter lives near her and checks on her everyday. OT educated pt. that if something should change, and if she should need skilled instruction in any of these areas, to please have nursing re-consult OT. Pt. verbalized understanding. 1500 1, visit no charge DC pt. AMIRA MORATAYA OT Oct 24, 2017 15:08
[2017-10-24 16:00] VITALS: BP_SYST 133; BP_SYST 167; BP_DIAS 67; BP_DIAS 74
[2017-10-24] MEDS: morphine PCA 30 MG/30 ML VIAL IV PRN (17:23)
[2017-10-24 19:49] VITALS: BP 132/69
[2017-10-24 23:03] VITALS: BP 137/73
[2017-10-25] MEDS: oxyCODONE/APAP 5/325MG (PERCOCET 5) TABLET PO PRN ×8 (00:52→18:37)
[2017-10-25] MEDS: NS IV 1000 ML 1,000 ML IV SCH (00:52)
[2017-10-25 03:07] VITALS: BP 135/74
[2017-10-25] MEDS: PANTOPRAZOLE 40 MG (PROTONIX) TAB PO SCH (05:08)
[2017-10-25] MEDS: MULTIVIT W/MINERALS TAB (THERAGRAN M) PO SCH (05:08)
[2017-10-25 06:06] LABS: HEMOGLOBIN 10.2 G/DL (11.5-16.0)
--- NOTE | 2017-10-25 07:05 | Progress Note-Standard ---
Standard Progress Note Progress Notes/Assess & Plan Date Seen by Provider: Oct 25, 2017 Time Seen by Provider: 07:04 Progress/Assessment & Plan post op check No complaints Radiographs--HW well positioned. No fxs RLE--2 plus DP pulse with brisk cap refill. Sensation intact throughout. intact DF and PF of toes and ankle s/p RTKA doing well mobilize as able Final Diagnosis No complaints Vital Signs Date Time Temp Pulse Resp B/P (MAP) Pulse Ox O2 Delivery O2 Flow Rate FiO2 10/25/17 03:07 99.5 93 20 135/74 (94) 94 Room Air 10/24/17 23:03 98.4 74 16 137/73 (94) 95 Room Air 10/24/17 20:08 Room Air 10/24/17 19:49 99.1 90 20 132/69 (90) 95 Room Air 10/24/17 17:23 20 10/24/17 16:00 97.1 64 20 133/74 (93) 98 Room Air 10/24/17 11:32 98.5 69 22 115/63 (80) 98 Room Air 10/24/17 08:00 98.4 63 18 118/68 (85) 97 Room Air 10/24/17 07:54 Room Air 10/24/17 07:44 18 I & O 10/25/17 07:00 Intake Total 2910 ml Output Total 1800 ml Balance 1110 ml Laboratory Tests Test 10/25/17 05:45 Range/Units Hemoglobin 10.2 L 11.5-16.0 G/DL Hematocrit 30 L 35-52 % RLE--incision c lean and dry. No calf tenderness. Neg Isidra's s/p RTKA progressing well continue PT/OT likely DC tomorrow NIALL WEBER MD Oct 25, 2017 07:05
[2017-10-25] MEDS ORDERED: morphine INJ 4 MG/ML 1 ML (VIAL/SYRINGE) IVP PRN (07:15)
[2017-10-25 08:00] VITALS: BP 146/71
[2017-10-25] MEDS: OXYBUTYNIN (DITROPAN) 5 MG TAB PO SCH (08:12)
[2017-10-25] MEDS: RIVAROXABAN 10 MG TABLET (XARELTO) PO SCH (08:12)
[2017-10-25] MEDS: SENNA W/DOCUSATE (SENOKOT S) TABLET PO SCH ×2 (08:12→20:14)
[2017-10-25] MEDS: ASPIRIN E.C. 81 MG (ECOTRIN) TAB PO SCH (08:12)
--- NOTE | 2017-10-25 09:41 | Physical Therapy Daily Note ---
PT Daily Note-Current Subjective Patient is in bed and agrees to PT. Has increase c/o right knee pain on this date. Pain Numeric Pain Scale: 8 Location: Right Location Body Site: Knee Pain Description: Acute Mental Status Patient Orientation: Normal For Age Transfers Functional Rankin Measure 0=Not Assessed/NA 4=Minimal Assistance 1=Total Assistance 5=Supervision or Setup 2=Maximal Assistance 6=Modified Rankin 3=Moderate Assistance 7=Complete IndependenceIRFPAI Quality Coding Scale 6 Independent with activity with or without an assistive device 5 Patient requires set up or clean up by helper. Patient completes activity by themselves 4 Supervision or touching assist (CGA). [place] provide cues , steadying assist 3 The helper provides less than half the effort to complete the activity 2 The helper provides more than half the effort to complete the activity 1 Dependent. The helper does all the effort to complete an activity 7 Patient refused to complete or attempt activity 9 The patient did not perform the activity before the current illness or injury 88 Not attempted due to Medical conditions or safety concerns Transfers (B, C, W/C) (FIM): 6 Scootin Rollin Supine to/from Sit: 6 Sit to/from Stand: 6 Weight Bearing Right Lower Extremity: Right Weight Bearing/Tolerated Left Lower Extremity: Left Weight Bearing/Tolerated Gait Training Gait (FIM): 6 Distance (FIM): 3=150 ft Distance: 350' x 2 Gait Level of Assist: 6 Gait Assistive Device: FWW antalgic, reciprocal pattern Stair Training Stair Training: Handrails/: 1 handrail, uses walker Stairs (FIM): 5 #of Steps: 6 Stairs: Pattern: Step to Level of Assist: 5 Exercises Seated Therapy Exercises: Long arc quads Seated Reps: 10 Assessment Patient has been instructed to be up ad clive in hallway. Nursing notified. Patient is progressing with treatment plan and is up in recliner for breakfast. PT Short Term Goals Short Term Goals Time Frame: Oct 30, 2017 Transfers (B,C,W/C) (FIM): 5 Gait (FIM): 5 Gait Distance Comment: 200 feet Gait Level of Assist: 5 Gait Assistive Device: FWW Stairs (FIM): 2 # of Steps: 4 Stairs Level of Assist: 4 PT Plan Treatment/Plan Treatment Plan: Continue Plan of Care Treatment Plan: Bed Mobility, Education, Functional Activity Nella, Functional Strength, Gait, Safety, Therapeutic Exercise, Transfers Treatment Duration: Oct 30, 2017 Frequency: 11 times per week Estimated Hrs Per Day: .25 hour per day (15-30 min) Patient and/or Family Agrees t: Yes Time/GCodes Time In: 911 Time Out: 935 Total Billed Treatment Time: 24 Total Billed Treatment 1 visit GT 13 min FA 11 CORY BYRNE PT Oct 25, 2017 09:41
--- NOTE | 2017-10-25 09:45 | Progress Note (SOAP) ---
Subjective Date Seen by Provider: Oct 25, 2017 Time Seen by Provider: 09:35 Subjective/Events-last exam pt reports that she is feeling better today - she is walking in the [place] with physical therapy and she is walking with a walker and doing well per therapy staff she is progressing excellently Review of Systems General: No Chills, No Fatigue HEENT: No Head Aches Gastrointestinal: No: Nausea, Abdominal Pain Musculoskeletal: leg pain (right knee) Neurological: No: Weakness Objective Exam Vital Signs Date Time Temp Pulse Resp B/P (MAP) Pulse Ox O2 Delivery O2 Flow Rate FiO2 10/25/17 08:20 20 10/25/17 08:00 98.7 87 20 146/71 (96) 97 Room Air 10/25/17 03:07 99.5 93 20 135/74 (94) 94 Room Air 10/24/17 23:03 98.4 74 16 137/73 (94) 95 Room Air 10/24/17 20:08 Room Air 10/24/17 19:49 99.1 90 20 132/69 (90) 95 Room Air 10/24/17 17:23 20 10/24/17 16:00 97.1 64 20 133/74 (93) 98 Room Air 10/24/17 11:32 98.5 69 22 115/63 (80) 98 Room Air I & O 10/25/17 07:00 Intake Total 2910 ml Output Total 1800 ml Balance 1110 ml Capillary Refill : Less Than 3 Seconds General Appearance: No Apparent Distress, WD/WN HEENT: PERRL/EOMI Neck: Supple Respiratory: Chest Non Tender, Lungs Clear, Normal Breath Sounds Cardiovascular: Regular Rate, Rhythm, No Edema Gastrointestinal: soft Extremity: Pedal Edema (surgical dressing removed from right knee - right knee dressing c/d/i) Neurologic/Psychiatric: Alert, Oriented x3, No Motor/Sensory Deficits Skin: Warm/Dry Results Lab Laboratory Tests 10/25/17 05:45: Hemoglobin 10.2L, Hematocrit 30L Assessment/Plan Assessment/Plan Assess & Plan/Chief Complaint RIGHT KNEE OSTEOARTHRITIS HX OF DVT 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 MOST LIKELY WILL BENEFIT FROM THERAPY OUTPATIENT - WILL NEED HOME HEALTH FOR A SHORT TIME, THEN TRANSITION TO OUTPATIENT THERAPY. GERD - RESTART PPI URGE INCONTINENCE - RESTART OXYBUTYNIN FACTOR V LEIDEN DEFICIENCY - CHRONIC - CONTINUE WITH LOVENOX WHILE IN HOSPITAL. WILL NEED TO START XARELTO (10MG DAILY X 2 WEEKS) ON DISCHARGE PROPHYLAXIS AGAINST DVT FOR A SHORT DURATION OUTPATIENT WHILE RECOVERING FROM KNEE SURGERY. I APPRECIATE THE CONSULT. Clinical Quality Measures DVT/VTE Risk/Contraindication: Risk Factor Score Per Nursin RFS Level Per Nursing on Admit: 4+=Very High ATUL HEREDIA MD Oct 25, 2017 09:45
[2017-10-25] MEDS ORDERED: RIVA10TA PO (09:48)
--- NOTE | 2017-10-25 15:06 | Physical Therapy Daily Note ---
PT Daily Note-Current Subjective Patient reports she has been up ad clive in room without difficulty. Pain Numeric Pain Scale: 5-Moderate Pain Location: Right Location Body Site: Knee Pain Description: Acute Mental Status Patient Orientation: Normal For Age Transfers Functional [place] Measure 0=Not Assessed/NA 4=Minimal Assistance 1=Total Assistance 5=Supervision or Setup 2=Maximal Assistance 6=Modified [place] 3=Moderate Assistance 7=Complete IndependenceIRFPAI Quality Coding Scale 6 Independent with activity with or without an assistive device 5 Patient requires set up or clean up by helper. Patient completes activity by themselves 4 Supervision or touching assist (CGA). [employer] provide cues , steadying assist 3 The helper provides less than half the effort to complete the activity 2 The helper provides more than half the effort to complete the activity 1 Dependent. The helper does all the effort to complete an activity 7 Patient refused to complete or attempt activity 9 The patient did not perform the activity before the current illness or injury 88 Not attempted due to Medical conditions or safety concerns Transfers (B, C, W/C) (FIM): 6 Scootin Rollin Supine to/from Sit: 6 Sit to/from Stand: 6 Weight Bearing Right Lower Extremity: Right Weight Bearing/Tolerated Left Lower Extremity: Left Weight Bearing/Tolerated Gait Training Gait (FIM): 6 Distance (FIM): 3=150 ft Distance: 250' Gait Level of Assist: 6 Gait Assistive Device: FWW antalgic, reciprocal pattern Exercises Supine Ex: Ankle pumps, Quad Set, Heel Slides, Straight leg raise Supine Reps: 15 Treatments CPM 0-76 degrees with polar pack in place Assessment Current Status: Excellent Progress Patient tolerated treatment and is highly motivated with progress. Patient will dismiss to home after therapy in the a.m. PT Short Term Goals Short Term Goals Time Frame: Oct 30, 2017 Transfers (B,C,W/C) (FIM): 5 Gait (FIM): 5 Gait Distance Comment: 200 feet Gait Level of Assist: 5 Gait Assistive Device: FWW Stairs (FIM): 2 # of Steps: 4 Stairs Level of Assist: 4 PT Plan Treatment/Plan Treatment Plan: Continue Plan of Care Treatment Plan: Bed Mobility, Education, Functional Activity Nella, Functional Strength, Gait, Safety, Therapeutic Exercise, Transfers Treatment Duration: Oct 30, 2017 Frequency: 11 times per week Estimated Hrs Per Day: .25 hour per day (15-30 min) Patient and/or Family Agrees t: Yes Time/GCodes Time In: 1430 Time Out: 1453 Total Billed Treatment Time: 23 Total Billed Treatment 1 visit EX 13 min GT 10 min CORY BYRNE PT Oct 25, 2017 15:06
[2017-10-25 15:56] VITALS: BP 170/79
[2017-10-26] VITALS: BP 156/85
[2017-10-26] MEDS: PANTOPRAZOLE 40 MG (PROTONIX) TAB PO SCH (06:02)
[2017-10-26] MEDS: MULTIVIT W/MINERALS TAB (THERAGRAN M) PO SCH (06:03)
[2017-10-26] MEDS: oxyCODONE/APAP 5/325MG (PERCOCET 5) TABLET PO PRN (06:03)
[2017-10-26 08:00] VITALS: BP 110/65
[2017-10-26] MEDS: RIVAROXABAN 10 MG TABLET (XARELTO) PO SCH (09:24)
[2017-10-26] MEDS: ASPIRIN E.C. 81 MG (ECOTRIN) TAB PO SCH (09:25)
[2017-10-26] MEDS: OXYBUTYNIN (DITROPAN) 5 MG TAB PO SCH (09:25)
[2017-10-26] MEDS: SENNA W/DOCUSATE (SENOKOT S) TABLET PO SCH (09:25)
--- NOTE | 2017-10-26 10:02 | Progress Note-Standard ---
Standard Progress Note Progress Notes/Assess & Plan Date Seen by Provider: Oct 26, 2017 Time Seen by Provider: 10:01 Progress/Assessment & Plan post op check No complaints Radiographs--HW well positioned. No fxs RLE--2 plus DP pulse with brisk cap refill. Sensation intact throughout. intact DF and PF of toes and ankle s/p RTKA doing well mobilize as able Final Diagnosis No complaints Vital Signs Date Time Temp Pulse Resp B/P (MAP) Pulse Ox O2 Delivery O2 Flow Rate FiO2 10/26/17 08:00 98.9 90 16 110/65 (80) 97 Room Air 10/26/17 00:42 100.0 10/26/17 00:12 100.5 10/26/17 00:00 100.4 94 18 156/85 (108) 99 Room Air 10/25/17 20:14 Room Air 10/25/17 15:56 96.8 83 18 170/79 (109) 99 Room Air I & O 10/26/17 07:00 Intake Total 2120 ml Output Total 2950 ml Balance -830 ml Laboratory Tests Test 10/26/17 05:30 Range/Units Hemoglobin 10.0 L 11.5-16.0 G/DL Hematocrit 29 L 35-52 % RLE--dressing intact. No calf tenderness. Neg Isidra's. Pos SLR s/p RTKA doing well dc home today after PT NIALL WEBER MD Oct 26, 2017 10:02
--- NOTE | 2017-10-26 11:54 | Physical Therapy Daily Note ---
PT Daily Note-Current Subjective Pt laying Supine in bed upon arrival. Pt reports will shower after walking with PT. Pt agrees to PT. Pain Numeric Pain Scale: 4 Location: Right Location Body Site: Knee Pain Description: Ache Mental Status Patient Orientation: Person, Place, Time, Situation Attachments: Polar Pack Transfers Functional [place] Measure 0=Not Assessed/NA 4=Minimal Assistance 1=Total Assistance 5=Supervision or Setup 2=Maximal Assistance 6=Modified [place] 3=Moderate Assistance 7=Complete IndependenceIRFPAI Quality Coding Scale 6 Independent with activity with or without an assistive device 5 Patient requires set up or clean up by helper. Patient completes activity by themselves 4 Supervision or touching assist (CGA). [employer] provide cues , steadying assist 3 The helper provides less than half the effort to complete the activity 2 The helper provides more than half the effort to complete the activity 1 Dependent. The helper does all the effort to complete an activity 7 Patient refused to complete or attempt activity 9 The patient did not perform the activity before the current illness or injury 88 Not attempted due to Medical conditions or safety concerns Scootin Rollin Supine to/from Sit: 5 Sit to/from Stand: 5 Weight Bearing Right Lower Extremity: Right Weight Bearing/Tolerated Left Lower Extremity: Left Weight Bearing/Tolerated Gait Training Distance (FIM): 3=150 ft Distance: 350' Gait Level of Assist: 5 Gait Persons Needed: 1 Gait Assistive Device: FWW Pt walks with slightly flexed R knee. SPECIFICATIONS WRITER encourages pt to WBAT increasing to normalize gait. Treatments Pt transfers from Supine to EOB to Standing using FWW at SBA. Pt ambulates in hallway using FWW at SBA. Pt returns to room at end of walk to rest Supine in bed. Pt is resting at end of tx with all needs met. Assessment Current Status: Good Progress Pt is increasing safety and independence of transfers and ambulation. Pt to discharge later today. PT Short Term Goals Short Term Goals Time Frame: Oct 30, 2017 Transfers (B,C,W/C) (FIM): 5 Gait (FIM): 5 Gait Distance Comment: 200 feet Gait Level of Assist: 5 Gait Assistive Device: FWW Stairs (FIM): 2 # of Steps: 4 Stairs Level of Assist: 4 PT Plan Problem List Problem List: Activity Tolerance, Functional Strength, Gait Treatment/Plan Treatment Plan: Continue Plan of Care Treatment Plan: Bed Mobility, Education, Functional Activity Nella, Functional Strength, Gait, Safety, Therapeutic Exercise, Transfers Treatment Duration: Oct 30, 2017 Frequency: 11 times per week Estimated Hrs Per Day: .25 hour per day (15-30 min) Patient and/or Family Agrees t: Yes Safety Risks/Education Patient Education: Gait Training, Correct Positioning, Safety Issues Teaching Recipient: Patient Teaching Methods: Discussion Response to Teaching: Verbalize Understanding Time/GCodes Time In: 1108 Time Out: 1121 Total Billed Treatment Time: 13 Total Billed Treatment 1, GT (13m) MYRIAM DHILLON SPECIFICATIONS WRITER Oct 26, 2017 11:54
--- NOTE | 2017-10-26 13:52 | DISCHARGE SUMMARY ---
DATE OF SERVICE: DIAGNOSIS: Right knee primary osteoarthritis. PAST MEDICL HISTORY: Deep venous thrombosis and reflux. PROCEDURE: Right total knee arthroplasty. HOSPITAL COURSE: The patient is a 62-year-old female who was admitted the day of total knee arthroplasty on the right knee, which she underwent without complications. Postoperatively, she did very well. At the time of discharge her wound was clean and dry. She had no calf tenderness. Negative Homans sign. She can perform a straight leg raise. She had active flexion to near 90 degrees. She had attained independent status with physical therapy and was tolerating her diet well and tolerating pain with oral pain medication. Condition at discharge is good. Discharge diet is regular. FOLLOWUP: Three weeks. Discharge medications are home medications. Percocet as needed for pain, Xarelto. Activities are weightbearing as tolerated with walker. Follow up is in three weeks. Job ID: [id number] DocumentID: [id number] Dictated Date: 10/26/2017 10:04:13 City Surveyor Date: 10/26/2017 13:51:49 Dictated By: NIALL WEBER MD
== END 2017-10-26 18:04 | disposition home health service (06) | DRG 470 ==
LOC: 4TH 05:59 → SURG 06:00 → 4TH 10:00
PROVIDERS: ADMIT Orthopaedic Surgery; ATTEND Orthopaedic Surgery
PROC: 0SRC0J9 Replacement of Right Knee Joint with Synthetic Substitute, Cemented, Open Approach (ICD-10-PCS; principal; 2017-10-23 07:27)
DX: M17.11 Unilateral primary osteoarthritis, right knee (principal); D68.2 Hereditary deficiency of other clotting factors; K21.9 Gastro-esophageal reflux disease without esophagitis; N39.41 Urge incontinence; Z96.652 Presence of left artificial knee joint; Z86.718 Personal history of other venous thrombosis and embolism; Z23 Encounter for immunization
CPT/HCPCS: 36415; 73560; 85014; 85018; 86850; 86870; 86900; 86901; 94664

== ENCOUNTER 2017-12-26 11:01 | Outpatient (RCR) | payer BC, OTHER ==
[~2017-12-26 11:01] MED LIST changes: +OXYC-197 PO; +RIVA10TA PO
== END 2017-12-26 14:27 | disposition home or self-care (01) ==
PROVIDERS: ATTEND Orthopaedic Surgery
DX: Z47.1 Aftercare following joint replacement surgery (principal); Z96.652 Presence of left artificial knee joint

== ENCOUNTER 2018-11-26 17:37 | Emergency (ER) | payer BC, OTHER ==
[~2018-11-26] VITALS: Ht 167.6 cm; Wt 99.8 kg
[~2018-11-26 17:37] MED LIST changes: +HYDR-4226 PO; -HYDR-757 PO; -OXYC-197 PO; +OXYC1TAB87 PO
[2018-11-26] MEDS ORDERED: ASPI-586 PO (17:54)
[2018-11-26] MEDS ORDERED: KETOROLAC 60 MG/2 ML VIAL IM STA (18:27)
--- NOTE | 2018-11-26 18:37 | ED Lower Extremity ---
General Chief Complaint: Lower Extremity Stated Complaint: LEG PAIN,DIZZY Nursing Triage Note: PT CO OF R HIP AND LOWER EXT PAIN 11/09.PT HAS FACTOR 5 BLOOD CLOTTING DISORDER. PT ENGEL HX OF BLOOD CLOT IN 2006. HAS SL SWELLING NOTED. PT STATES STARTED 10DAYS AGO Nursing Sepsis Screen: No Definite Risk Source: patient Exam Limitations: no limitations History of Present Illness Date Seen by Provider: Nov 26, 2018 Time Seen by Provider: 18:17 Initial Comments Here with report of right hip and leg pain. Started 10 days ago after she completed antibiotics and steroids for a sinus infection. Noted that the right hip is really hurt in. That continued but improved and then she started getting muscular pain to the right upper leg and right lower leg on the lateral aspect. She has history of blood clot was concerned it might be that. She states that she doesn't really have swelling or tightness like she has had when she had blood clot in the past. She wasn't sure if it was just radiating low back pain and hip pain or if it was a blood clot. She is not currently on blood thinners but does take aspirin daily. She takes naproxen once daily in the morning and that does help with the pain. Did note a little bit of dizziness and is currently suffering from upper respiratory symptoms mildly. She states that she' s been getting a son and off throughout the winter and seems to be catching it from her grandkids who also been going through this. Otherwise not short of breath and no chest pain. Has not had syncope. Onset: other Severity: mild Pain/Injury Location: right hip, right leg Method of Injury: unknown Modifying Factors: Worse With Movement; Improves With Pain Medication, Improves With Rest Allergies and Home Medications Allergies Coded Allergies: No Known Drug Allergies (Unverified , 01/29/17) Home Medications Aspirin 81 Mg Tablet.dr, 81 MG PO DAILY, (Reported) Naproxen 500 Mg Tablet, 500 MG PO DAILY, (Reported) Oxybutynin Chloride 5 Mg Tablet, 5 MG PO DAILY, (Reported) prescribed BID but only take daily Pantoprazole Sodium 40 Mg Tablet.dr, 40 MG PO DAILY, (Reported) Patient Home Medication List Home Medication List Reviewed: Yes Review of Systems Constitutional: see HPI; No chills, No fever EENTM: nose congestion; No throat pain Respiratory: No cough, No short of breath Cardiovascular: No chest pain, No edema Gastrointestinal: No nausea, No vomiting Genitourinary: no symptoms reported Musculoskeletal: see HPI, joint pain, muscle pain Skin: No change in color, No lesions Psychiatric/Neurological: Denies Weakness; Other (intermittent dizziness) Past Xohkmxk-Heheub-Ycodzh Hx Past Med/Social Hx: Reviewed Nursing Past Med/Soc Hx Patient Social History Alcohol Use: Denies Use Recreational Drug Use: No Smoking Status: Never a Smoker Recent Foreign Travel: No Contact w/Someone Who Travel: No Recent Infectious Disease Expo: No Recent Hopitalizations: No Immunizations Up To Date Date of Influenza Vaccine: Oct 23, 2017 Seasonal Allergies Seasonal Allergies: No Past Medical History Surgeries: Yes (cysoscopy, kidney bx, ) Hysterectomy, Orthopedic Respiratory: No Currently Using CPAP: No Currently Using BIPAP: No Cardiac: No Neurological: No Genitourinary: Yes (hx of WBC in urine-tested no reason found) Gastrointestinal: No Musculoskeletal: Yes (dvt behind both knees) Arthritis Endocrine: No HEENT: No Cancer: No Psychosocial: No Integumentary: No Blood Disorders: Yes (FACTOR V LEIDEN ) Family Medical History Reviewed Nursing Family Hx Arthritis 19 MOTHER Respiratory disorder 19 FATHER (lung cancer) Heart Disease, Cancer, COPD Physical Exam Vital Signs Vital Signs - First Documented 11/26/18 17:40 Temp 97.4 Pulse 85 Resp 18 B/P (MAP) 161/94 (116) Pulse Ox 98 Capillary Refill : Less Than 3 Seconds Height, Weight, BMI Height: 5'6.00" Weight: 220lbs. 0.0oz. 99.738462po; 34.9 BMI Method:Stated General Appearance: WD/WN, no apparent distress HEENT: PERRL/EOMI, TMs normal, pharyngeal erythema (mild), other (bilateral nasal congestion with erythema and clear rhinorrhea) Neck: full range of motion, supple Cardiovascular: regular rate, rhythm, no murmur Respiratory: lungs clear, normal breath sounds Hips: right hip non-tender, right hip normal range of motion Legs: bilateral leg non-tender, bilateral leg normal inspection, bilateral leg normal range of motion; right leg other (is significant swelling or tightness noted in comparison to the other leg.) Neurologic/Psychiatric: alert, oriented x 3 Skin: normal color, warm/dry Progress/Results/Core Measures Results/Orders Lab Results Laboratory Tests Test 11/26/18 18:36 Range/Units White Blood Count 6.5 4.3-11.0 10^3/uL Red Blood Count 4.37 4.35-5.85 10^6/uL Hemoglobin 14.3 11.5-16.0 G/DL Hematocrit 42 35-52 % Mean Corpuscular Volume 95 80-99 FL Mean Corpuscular Hemoglobin 33 25-34 PG Mean Corpuscular Hemoglobin Concent 35 32-36 G/DL Red Cell Distribution Width 12.7 10.0-14.5 % Platelet Count 166 130-400 10^3/uL Mean Platelet Volume 10.5 H 7.4-10.4 FL Neutrophils (%) (Auto) 45 42-75 % Lymphocytes (%) (Auto) 41 12-44 % Monocytes (%) (Auto) 7 0-12 % Eosinophils (%) (Auto) 6 0-10 % Basophils (%) (Auto) 1 0-10 % Neutrophils # (Auto) 2.9 1.8-7.8 X 10^3 Lymphocytes # (Auto) 2.6 1.0-4.0 X 10^3 Monocytes # (Auto) 0.5 0.0-1.0 X 10^3 Eosinophils # (Auto) 0.4 H 0.0-0.3 10^3/uL Basophils # (Auto) 0.1 0.0-0.1 10^3/uL D-Dimer 0.43 0.00-0.49 UG/ML Sodium Level 140 135-145 MMOL/L Potassium Level 4.1 3.6-5.0 MMOL/L Chloride Level 104 98-107 MMOL/L Carbon Dioxide Level 24 21-32 MMOL/L Anion Gap 12 5-14 MMOL/L Blood Urea Nitrogen 24 H 7-18 MG/DL Creatinine 0.82 0.60-1.30 MG/DL Estimat Glomerular Filtration Rate > 60 BUN/Creatinine Ratio 29 Glucose Level 83 70-105 MG/DL Calcium Level 9.2 8.5-10.1 MG/DL Corrected Calcium 9.0 8.5-10.1 MG/DL Total Bilirubin 0.5 0.1-1.0 MG/DL Aspartate Amino Transf (AST/SGOT) 17 5-34 U/L Alanine Aminotransferase (ALT/SGPT) 14 0-55 U/L Alkaline Phosphatase 72 40-136 U/L Total Protein 7.5 6.4-8.2 GM/DL Albumin 4.2 3.2-4.5 GM/DL My Orders Orders - TALITA HOFF MD Ketorolac Injection (Toradol Injection) (11/26/18 18:27) Cbc With Automated Diff (11/26/18 18:27) Comprehensive Metabolic Panel (11/26/18 18:27) Fibrin Degradation Products (11/26/18 18:27) Prednisone Tablet (Deltasone Tablet) (11/26/18 19:30) Vital Signs/I&O 11/26/18 17:40 Temp 97.4 Pulse 85 Resp 18 B/P (MAP) 161/94 (116) Pulse Ox 98 Blood Pressure Mean: 116 Progress Progress Note : Progress Note Seen and evaluated. Ultrasound unavailable. We will check basic labs and d- dimer. This does seem to be more musculoskeletal and sciatica in presentation and less concerning for DVT. She does have factor V Leiden so d-dimer is indicated. She does have upper respiratory symptoms noted on history and exam and this may be what is causing her to feel intermittently dizzy. Toradol 60 mg IM ordered. Monitor patient. 1929: D-dimer negative. I did discuss the case with Dr. Henson. She will order outpatient ultrasound. Copy of chart sent to her office. Patient was okay with that as well. For the upper respiratory infection and what I believe is sciatica symptoms, prednisone 40 mg by mouth given now and we will continue that for 6 more days. Discharged home with return precautions. Patient verbalize understanding instructions and agreement with plan. Departure Impression Primary Impression: Sciatica, right side Additional Impression: Upper respiratory infection, viral Disposition: HOME, SELF-CARE Condition: Improved Departure-Patient Inst. Decision time for Depature: 19:33 Referrals: ATUL HENSON MD Patient Instructions: Sciatica (DC), Viral Upper Respiratory Infection, Adult ( DC) Add. Discharge Instructions: All discharge instructions reviewed with patient and/or family. Voiced understanding. You should call Dr. Henson's office in the morning regarding the outpatient ultrasound. They are assisting setting that up. Follow-up with your doctor this week for recheck and further evaluation. Return for worse pain, fever, vomiting , weakness, breathing problems or other concerns as needed. Scripts Prednisone (Prednisone) 20 Mg Tab 40 MG PO DAILY, #12 TAB 0 Refills Prov: TALITA HOFF MD 11/26/18 Copy Copies To 1: ATUL HENSON MD, TIMOTHY D MD Nov 26, 2018 18:37
[2018-11-26 18:43] LABS: BASOPHILS # (AUTO) 0.1 10^3/uL (0.0-0.1); BASOPHILS % (AUTO) 1 % (0-10); EOSINOPHILS # (AUTO) 0.4 10^3/uL (0.0-0.3); EOSINOPHILS % (AUTO) 6 % (0-10); HEMATOCRIT 42 % (35-52); HEMOGLOBIN 14.3 G/DL (11.5-16.0); LYMPHOCYTES # (AUTO) 2.6 X 10^3 (1.0-4.0); LYMPHOCYTES % (AUTO) 41 % (12-44); MEAN CORPUSCULAR HEMOGLOBIN 33 PG (25-34); MEAN CORPUSCULAR HGB CONC 35 G/DL (32-36); MEAN CORPUSCULAR VOLUME 95 FL (80-99); MEAN PLATELET VOLUME 10.5 FL (7.4-10.4); MONOCYTES # (AUTO) 0.5 X 10^3 (0.0-1.0); MONOCYTES % (AUTO) 7 % (0-12); NEUTROPHILS # (AUTO) 2.9 X 10^3 (1.8-7.8); NEUTROPHILS % (AUTO) 45 % (42-75); PLATELET COUNT 166 10^3/uL (130-400); RED CELL DISTRIBUTION WIDTH 12.7 % (10.0-14.5); WHITE BLOOD COUNT 6.5 10^3/uL (4.3-11.0)
--- NOTE | 2018-11-26 18:56 | NUR ---
REPORT TO CEZAR MCMULLEN
[2018-11-26 19:06] LABS: ALANINE AMINOTRANSFERASE 14 U/L (0-55); ALBUMIN 4.2 GM/DL (3.2-4.5); ALKALINE PHOSPHATASE 72 U/L (40-136); BILIRUBIN,TOTAL 0.5 MG/DL (0.1-1.0); BUN/CREATININE RATIO 29; CALCIUM 9.2 MG/DL (8.5-10.1); CARBON DIOXIDE 24 MMOL/L (21-32); CHLORIDE 104 MMOL/L (98-107); CREATININE SERUM 0.82 MG/DL (0.60-1.30); GFR ESTIMATED > 60; GLUCOSE 83 MG/DL (70-105); POTASSIUM 4.1 MMOL/L (3.6-5.0); SODIUM 140 MMOL/L (135-145); TOTAL PROTEIN 7.5 GM/DL (6.4-8.2)
[2018-11-26] MEDS ORDERED: predniSONE 20 MG TAB PO ONE (19:30)
[2018-11-26] MEDS ORDERED: PRD20T PO (19:35)
[2018-11-26 19:45] VITALS: BP 149/99
== END 2018-11-26 19:45 | disposition home or self-care (01) ==
LOC: EDUNIT# 17:37 → ER 17:39
DX: M54.41 Lumbago with sciatica, right side (principal); J06.9 Acute upper respiratory infection, unspecified; Z79.82 Long term (current) use of aspirin; Z90.710 Acquired absence of both cervix and uterus; Z86.718 Personal history of other venous thrombosis and embolism
CPT/HCPCS: 36415; 80053; 85025; 85379; 99284

== ENCOUNTER → 2018-11-27 | Outpatient (CLI) | payer BC ==
[~2018-11-27] MED LIST changes: +ASPI-586 PO; +PRD20T PO
--- NOTE | 2018-11-27 11:50 | Diagnostic Imaging Report ---
PROCEDURE: US right lower extremity venous. TECHNIQUE: Multiple real-time grayscale images were obtained over the right lower extremity in various projections. Additional spectral analysis and color Doppler duplex images were also obtained. INDICATION: Right lower extremity pain EXAMINATION: Grayscale and color Doppler evaluation of the deep veins of the right lower extremity were performed with waveform analysis. FINDINGS: Continuous venous flow is present. No intraluminal filling defect is identified. There is normal compressibility and response to augmentation. No abnormal perivascular fluid collection is identified. IMPRESSION: No ultrasound evidence of right lower extremity deep venous thrombosis. Dictated by: Dictated on workstation # [id number]
== END ==
LOC: RAD 10:17
PROVIDERS: ATTEND Nurse Practitioner Family
DX: M79.661 Pain in right lower leg (principal)

== ENCOUNTER 2019-03-13 13:34 | Outpatient (RCR) | payer BC, OTHER ==
[~2019-03-13 13:34] MED LIST changes: +RIVA10T PO; -RIVA10TA PO; -RIVA20TA PO; +RIVA20TA2 PO
== END 2019-06-11 | disposition home or self-care (01) ==
LOC: ONC 13:34
PROVIDERS: ATTEND Internal Medicine Hematology & Oncology
DX: D68.51 Activated protein C resistance (principal); Z86.718 Personal history of other venous thrombosis and embolism; I10 Essential (primary) hypertension; Z80.1 Family history of malignant neoplasm of trachea, bronchus and lung; Z79.82 Long term (current) use of aspirin; Z79.899 Other long term (current) drug therapy; Z96.652 Presence of left artificial knee joint
CPT/HCPCS: 99214

== ENCOUNTER → 2019-06-11 | Outpatient (CLI) | payer BC, OTHER ==
--- NOTE | 2019-06-11 14:59 | Diagnostic Imaging Report ---
PROCEDURE: MRI lumbar spine. TECHNIQUE: Multiplanar, multisequence MRI of the lumbar spine was performed without contrast. INDICATION: Chronic low back pain. COMPARISON: No prior studies are available for comparison. FINDINGS: There appears to be a transitional lumbosacral vertebral body. Please see images for appropriate labeling. Curvature and alignment is normal. Vertebral body heights are maintained. The marrow signal intensity is unremarkable. No geographic marrow lesion or acute compression fracture is detected. Multilevel degenerative disc disease is seen with variable disc space narrowing and desiccation. The conus appears unremarkable at approximately the L1 level. T12-L1: The central canal and neural foramina are widely patent. L1-L2: No central canal stenosis is seen. Neural foramina are patent. L2-L3: There is some ligamentous thickening and annular bulging, but central canal remains patent. Neural foramina are patent. L3-L4: Hypertrophic facet changes and ligamentous thickening with broad-based disc/osteophyte complex result in moderate trefoil narrowing of the central canal. There is also bilateral lateral recess narrowing. Significant left and moderate right neuroforaminal stenosis is seen. L4-L5: There is a wide-base prominent midline disc bulge indenting the ventral thecal sac producing severe central canal stenosis. There is ligamentous thickening and facet changes. Severe bilateral lateral recess stenosis is noted. There is also moderate bilateral neuroforaminal stenosis. L5-S1: Broad-based disc/osteophyte complex indents the ventral thecal sac. There is mild central canal narrowing. There is significant bilateral lateral recess stenosis with [id number] right-sided neuroforaminal stenosis. Paraspinous tissues are unremarkable. IMPRESSION: Multilevel lumbar spondylosis with multilevel central canal, lateral recess and neuroforaminal stenosis described level by level above. Dictated by: Dictated on workstation # [id number]
== END ==
LOC: RAD 13:51
PROVIDERS: ATTEND Nurse Practitioner
DX: M51.16 Intervertebral disc disorders with radiculopathy, lumbar region (principal); M47.26 Other spondylosis with radiculopathy, lumbar region; M48.07 Spinal stenosis, lumbosacral region
CPT/HCPCS: 72148

== ENCOUNTER 2019-08-19 15:43 | Outpatient (RCR) | payer BC ==
[~2019-08-19 15:43] MED LIST changes: +OXYB5TAB13 PO; -OXYB5TAB9 PO
== END 2019-09-30 12:30 | disposition home or self-care (01) ==
PROVIDERS: ATTEND Pain Medicine Interventional Pain Medicine
DX: G89.4 Chronic pain syndrome (principal); M54.16 Radiculopathy, lumbar region

== ENCOUNTER → 2019-10-21 | Outpatient (CLI) | payer OTHER ==
[2019-10-21 14:20] LABS: BASOPHILS # (AUTO) 0.1 10^3/uL (0.0-0.1); BASOPHILS % (AUTO) 1 % (0-10); EOSINOPHILS # (AUTO) 0.3 10^3/uL (0.0-0.3); EOSINOPHILS % (AUTO) 4 % (0-10); HEMATOCRIT 43 % (35-52); HEMOGLOBIN 14.2 G/DL (11.5-16.0); LYMPHOCYTES # (AUTO) 2.5 X 10^3 (1.0-4.0); LYMPHOCYTES % (AUTO) 33 % (12-44); MEAN CORPUSCULAR HEMOGLOBIN 32 PG (25-34); MEAN CORPUSCULAR HGB CONC 33 G/DL (32-36); MEAN CORPUSCULAR VOLUME 94 FL (80-99); MEAN PLATELET VOLUME 10.6 FL (7.4-10.4); MONOCYTES # (AUTO) 0.5 X 10^3 (0.0-1.0); MONOCYTES % (AUTO) 7 % (0-12); NEUTROPHILS # (AUTO) 4.1 X 10^3 (1.8-7.8); NEUTROPHILS % (AUTO) 55 % (42-75); PLATELET COUNT 222 10^3/uL (130-400); RED CELL DISTRIBUTION WIDTH 12.8 % (10.0-14.5); WHITE BLOOD COUNT 7.4 10^3/uL (4.3-11.0)
[2019-10-21 14:45] LABS: ALANINE AMINOTRANSFERASE 17 U/L (0-55); ALBUMIN 4.2 GM/DL (3.2-4.5); ALKALINE PHOSPHATASE 82 U/L (40-136); BILIRUBIN,TOTAL 0.5 MG/DL (0.1-1.0); BUN/CREATININE RATIO 30; CALCIUM 9.5 MG/DL (8.5-10.1); CARBON DIOXIDE 21 MMOL/L (21-32); CHLORIDE 105 MMOL/L (98-107); CREATININE SERUM 0.77 MG/DL (0.60-1.30); GFR ESTIMATED > 60; GLUCOSE 94 MG/DL (70-105); POTASSIUM 4.1 MMOL/L (3.6-5.0); SODIUM 138 MMOL/L (135-145); TOTAL PROTEIN 7.4 GM/DL (6.4-8.2)
--- NOTE | 2019-10-21 17:00 | Diagnostic Imaging Report ---
INDICATION: Pain radiating down the left arm. FINDINGS: There is grade 1 retrolisthesis of C4 on C5 with severe local spondylosis with disc space narrowing, endplate sclerosis, and osteophytes. There is substantial spondylosis of the normally alignment C3-C4 level present as well. There is multilevel facet arthrosis. The prevertebral space is unremarkable. No fracture is evident. IMPRESSION: Mid cervical spondylosis with likely degenerative retrolisthesis. Given the severity of disease and the malalignment, if there is clinical suspicion for neurological disease from spinal stenosis, MRI would be recommended as further evaluation. Dictated by: Dictated on workstation # [id number]
--- NOTE | 2019-10-21 17:00 | Diagnostic Imaging Report ---
INDICATION: Left shoulder pain. AP, oblique, and trans-scapular views of the left shoulder are obtained. No fracture or acute bony abnormality is seen. There is no dislocation. Glenohumeral joint appears unremarkable. There is perhaps mild degenerative change of the AC joint. IMPRESSION: No acute fracture or dislocation. Mild degenerative change of the AC joint. Dictated by: Dictated on workstation # [id number]
== END ==
LOC: RAD 13:34
PROVIDERS: ATTEND Nurse Practitioner Family
DX: M19.012 Primary osteoarthritis, left shoulder (principal); M47.812 Spondylosis without myelopathy or radiculopathy, cervical region
CPT/HCPCS: 36415; 72040; 73030; 80053; 84443; 84484; 85025

== ENCOUNTER 2020-01-22 08:48 | Outpatient (RCR) | payer OTHER ==
[~2020-01-22] VITALS: Ht 167 cm; Wt 102.0 kg
[~2020-01-22 08:48] MED LIST changes: +METO-333 PO
== END 2020-01-22 14:43 | disposition home or self-care (01) ==
LOC: PREOP 08:48
PROVIDERS: ATTEND Urology
DX: Z01.818 Encounter for other preprocedural examination (principal); Z01.812 Encounter for preprocedural laboratory examination; Z11.59 Encounter for screening for other viral diseases; N39.41 Urge incontinence
CPT/HCPCS: 87635

== ENCOUNTER 2020-01-26 06:54 | Day surgery (SDC) | payer MEDICARE, OTHER ==
[2020-01-26] VITALS (9 sets, daily range): BP systolic 85–143; BP diastolic 50–96
[~2020-01-26] VITALS: Ht 167 cm; Wt 102.0 kg
--- OUTSIDE RECORDS SUMMARY | 2020-01-26 06:59 | XMS REPORT | CCD ---
Author Author Shannan Lindquist Organization Aisha Henson MD, [facility] Address [address] [place] [address] Phone Care Team Providers Care Xm1 Tank Driver Name Role Phone PP Unavailable CCM Unavailable Summary Purpose Interface Exchange Insurance Providers Payer name Policy type / Coverage type Covered constitution party ID Effective Begin Date Effective End Date Blue Cross Blue Shield [facility] e Cross/Blue Shield [id number] 2017 Un known Family history Son Diagnosis Age At Onset Asthma Unknown Mother Diagnosis Age At Onset Osteoporosis Unknown Arthritis Unknown Father Diagnosis Age At Onset Cancer Unknown Social History Social History Element Codes Description Effective Dates Marital status Unknown S hellen 04/08/2017 Number of children Unknown 2 04/08/2017 Employment Unknown Retir ed 04/08/[address]: 021312435 Never smoker 04/08/[address]: 532534866 Never drinks alcohol 04/08/2017 Has the patient ever used illegal drugs? Unknown Has never used illegal drugs 017 Allergies, Adverse Reactions, Alerts Substance Reaction Codes Entered Date Inactivated Date Status * NO KNOWN FOOD STEVIE RGIES Unknown 04/08/2017 No Inactive Date Active * NO KNOWN DRUG STEVIE RGIES Unknown 04/08/2017 No Inactive Date Active Past Medical History Illness Codes Condition Status Onset Date Resolved Date Essential (primary) hypertension ICD-9: 401.1 ICD-10: I10 Active 02/19/2019 Unknown Other specified coag ulation defects ICD-9: 286.9 ICD-10: D68.8 Active 09/30/2017 Unknown Encounter for genera l adult medical examination with abnormal findings ICD-9: V70.0 ICD-10: Z00.01 Active 09/30/2017 Unknown Other specified arth ritis, right knee ICD-9: 716.36 ICD-10: M13.861 Active 09/30/2017 Unknown Activated protein C resistance ICD-9: 289.81 ICD-10: D68.51 Active 05/30/2017 Unknown Bilateral primary os teoarthritis of knee ICD-9: 715.96 ICD-10: M17.0 Active 04/08/2017 Unknown Urge incontinence ICD-9: 788.31 ICD-10: N39.41 Active 05/30/2017 Unknown Personal history of other venous thrombosis and embolism ICD-9: V12.51 ICD-10: Z86.718 Active 04/08/2017 Unknown Problems Condition Codes Effectiv e Dates Condition Status Essential (primary) hypertension ICD-9: 401.1 ICD-10: I10 02/19/2019 Active Other specified coag ulation defects ICD-9: 286.9 ICD-10: D68.8 09/30/2017 Active Encounter for genera l adult medical examination with abnormal findings ICD-9: V70.0 ICD-10: Z00.01 09/30/2017 Active Other specified arth ritis, right knee ICD-9: 716.36 ICD-10: M13.861 09/30/2017 Active Activated protein C resistance ICD-9: 289.81 ICD-10: D68.51 05/30/2017 Active Bilateral primary os teoarthritis of knee ICD-9: 715.96 ICD-10: M17.0 04/08/2017 Active Urge incontinence ICD-9: 788.31 ICD-10: N39.41 05/30/2017 Active Personal history of other venous thrombosis and embolism ICD-9: V12.51 ICD-10: Z86.718 04/08/2017 Active Medications Medication Codes Instruc tions Start Date Stop Date Sta tus Fill Instructions naproxen 500 mg tablet RxNorm: 977000 Tablet(s) TAKE ONE TABLET BY MOUTH DAILY 05/05/2019 07/03/2019 Ac tive naproxen 500 mg tablet RxNorm: 623158 Tablet(s) TAKE ONE TABLET BY MOUTH DAILY 04/06/2019 05/04/2019 In active naproxen 500 mg tablet RxNorm: 196726 TAKE ONE TABLET BY MOUTH DAILY 03/06/2019 04/04/2019 In active naproxen 500 mg tablet RxNorm: 703496 1 Tablet(s) PO daily 02/03/2019 03/04/2019 Inactive metoprolol tartrate 25 mg tablet RxNorm: 129093 1/2 Tablet(s) PO BID 01/20/2019 05/19/2019 Active Lovenox 40 mg/0.4 mL subcutaneous syringe RxNorm: 435745 1 injection SQ daily the day before, day of and day after flight 01/20/2019 01/25/2019 Inactive prednisone 20 mg tablet RxNorm: 348534 2 Tablet(s) PO daily 01/20/2019 01/29/2019 Inactive Lovenox 40 mg/0.4 mL subcutaneous syringe RxNorm: 802453 1 injection SQ Q12H 09/30/2017 10/15/2017 In active Lovenox 40 mg/0.4 mL subcutaneous syringe RxNorm: 701433 1 Milliliter(s) SQ Q1 2H 05/09/2017 05/15/2017 In active Lovenox 40 mg/0.4 mL subcutaneous syringe RxNorm: 760871 1 Milliliter(s) SQ Q1 2H 05/09/2017 05/08/2017 In active oxybutynin chloride 5 mg tablet RxNorm: 073508 1 Tablet(s) PO daily No Start Date Active aspirin 81 mg tablet ,delayed release RxNorm: 091275 1 Tablet(s) PO daily No Start Date Active pantoprazole oral RxNorm: 67774 oral No Start Date Active oxybutynin chloride oral RxNorm: [address] art Date 05/29/2017 Inactive naproxen 500 mg tablet RxNorm: 015987 1 Tablet(s) PO daily No Start Date 02/02/2019 Inactive Medication Administered No Medication Administered data Immunizations No Immunization data Assessments Condition Codes Effectiv e Dates Other specified coagulation defects ICD-10: D68.8 ICD-9: 286.9 02/19/2019 Essential (primary) hypertension ICD -10: I10 ICD-9: 401.1 02/19/2019 Encounter for general adult medical exam ination with abnormal findings ICD-10: Z00.01 ICD-9: V70.0 01/20/2019 Other specified arthritis, right knee ICD-10: M13.861 ICD-9: 716.36 09/30/2017 Urge incontinence ICD-10: N39.41 ICD-9: 788.31 05/30/2017 Activated protein C resistance ICD-1 0: D68.51 ICD-9: 289.81 05/30/2017 Bilateral primary osteoarthritis of knee ICD-10: M17.0 ICD-9: 715.96 05/30/2017 Personal history of other venous thrombosis and emboli sm ICD- 10: Z86.718 ICD-9: V12.51 05/15/2017 Reason For Visit Reason For Visit Effective Dates Notes blood pressure followup 02/19/2019 blood pressure followup 01/20/2019 pre-op/surgery consult 09/30/2017 Hospital Follow Up 05/30/2017 pre-op/surgery consult 04/08/2017 Results No Results data Review of Systems System Result Effective Dates Constitutional No recent illness 02/19/2019 Constitutional No chills 02/19/2019 Constitutional No diaphoresis 02/19/2019 Constitutional fatigue 0 02/19/2019 Constitutional No fever 02/19/2019 Constitutional No insomnia 02/19/2019 Constitutional No malaise 02/19/2019 Ears/Nose/Throat/Neck No dizziness 02/19/2019 Ears/Nose/Throat/Neck No headache 02/19/2019 Cardiovascular No chest pain/pressure 02/19/2019 Cardiovascular No dyspnea 02/19/2019 Respiratory No cough Gastrointestinal No abdominal pain 02/19/2019 Gastrointestinal No constipation 02/19/2019 Gastrointestinal No diarrhea 02/19/2019 Dermatologic No rash Dermatologic No sores Neurologic No alteration of consciousness 02/19/2019 Psychiatric No anxiety 0 02/19/2019 Psychiatric No depression 02/19/2019 Cardiovascular hypertension 02/19/2019 Musculoskeletal No muscle weakness 02/19/2019 Musculoskeletal No joint complaint 02/19/2019 Constitutional No recent illness 01/20/2019 Constitutional No chills 01/20/2019 Constitutional No diaphoresis 01/20/2019 Constitutional No fatigue 01/20/2019 Constitutional No fever 01/20/2019 Constitutional No insomnia 01/20/2019 Constitutional No malaise 01/20/2019 Ears/Nose/Throat/Neck No dizziness 01/20/2019 Ears/Nose/Throat/Neck No headache 01/20/2019 Cardiovascular No chest pain/pressure 01/20/2019 Cardiovascular No dyspnea 01/20/2019 Respiratory No cough Gastrointestinal No abdominal pain 01/20/2019 Gastrointestinal No constipation 01/20/2019 Gastrointestinal No diarrhea 01/20/2019 Genitourinary/Nephrology No dysuria 01/20/2019 Musculoskeletal joint complaint 01/20/2019 Dermatologic No rash Dermatologic No sores Neurologic No alteration of consciousness 01/20/2019 Psychiatric No anxiety 0 01/20/2019 Psychiatric No depression 01/20/2019 Constitutional No recent illness 09/30/2017 Constitutional No anorexia 09/30/2017 Constitutional No night sweats 09/30/2017 Constitutional No chills 09/30/2017 Constitutional No diaphoresis 09/30/2017 Constitutional No fatigue 09/30/2017 Constitutional No fever 09/30/2017 Constitutional No insomnia 09/30/2017 Constitutional No malaise 09/30/2017 Constitutional No weight loss 09/30/2017 Constitutional No weight gain 09/30/2017 Ears/Nose/Throat/Neck No dizziness 09/30/2017 Ears/Nose/Throat/Neck No headache 09/30/2017 Cardiovascular No chest pain/pressure 09/30/2017 Cardiovascular No dyspnea 09/30/2017 Respiratory No cough Gastrointestinal No abdominal pain 09/30/2017 Gastrointestinal No constipation 09/30/2017 Gastrointestinal No diarrhea 09/30/2017 Genitourinary/Nephrology No dysuria 09/30/2017 Musculoskeletal joint complaint 09/30/2017 Dermatologic No rash Dermatologic No sores Neurologic No alteration of consciousness 09/30/2017 Psychiatric No anxiety 0 09/30/2017 Psychiatric No depression 09/30/2017 Constitutional No recent illness 05/30/2017 Constitutional No anorexia 05/30/2017 Constitutional No night sweats 05/30/2017 Constitutional No chills 05/30/2017 Constitutional No diaphoresis 05/30/2017 Constitutional No fatigue 05/30/2017 Constitutional No fever 05/30/2017 Constitutional No insomnia 05/30/2017 Constitutional No weight loss 05/30/2017 Constitutional No weight gain 05/30/2017 Constitutional No malaise 05/30/2017 Cardiovascular No chest pain/pressure 05/30/2017 Cardiovascular No dyspnea 05/30/2017 Ears/Nose/Throat/Neck No dizziness 05/30/2017 Ears/Nose/Throat/Neck No headache 05/30/2017 Respiratory No cough Gastrointestinal No abdominal pain 05/30/2017 Genitourinary/Nephrology No dysuria 05/30/2017 Gastrointestinal No constipation 05/30/2017 Gastrointestinal No diarrhea 05/30/2017 Musculoskeletal joint complaint 05/30/2017 Dermatologic No rash Dermatologic No sores Neurologic No alteration of consciousness 05/30/2017 Musculoskeletal joint complaint 04/08/2017 Genitourinary/Nephrology urinary frequency 04/08/2017 Constitutional No recent illness 04/08/2017 Constitutional No anorexia 04/08/2017 Constitutional No night sweats 04/08/2017 Constitutional No chills 04/08/2017 Constitutional No diaphoresis 04/08/2017 Constitutional No fatigue 04/08/2017 Constitutional No fever 04/08/2017 Constitutional No insomnia 04/08/2017 Constitutional No malaise 04/08/2017 Constitutional No weight loss 04/08/2017 Constitutional No weight gain 04/08/2017 Eyes No eye erythema 03/2017 Eyes No eye discharge Ears/Nose/Throat/Neck No dizziness 04/08/2017 Ears/Nose/Throat/Neck No headache 04/08/2017 Cardiovascular No chest pain/pressure 04/08/2017 Cardiovascular No dyspnea 04/08/2017 Cardiovascular No edema 04/08/2017 Cardiovascular No fatigue 04/08/2017 Respiratory No productive sputum 04/08/2017 Respiratory No cough 03/2017 Gastrointestinal No abdominal pain 04/08/2017 Gastrointestinal No constipation 04/08/2017 Gastrointestinal No diarrhea 04/08/2017 Dermatologic No rash 03/2017 Neurologic No alteration of consciousness 04/08/2017 Psychiatric No anxiety 0 04/08/2017 Endocrine No dry or coarse skin 04/08/2017 Hematologic/Lymphatic No abnormal ec chymoses 04/08/2017 Physical Exam Exam Name System Name It em Name Status Result Effective Dates Notes Full Exam - General 1994 Constitutional general appearance Overall: well developed 02/19/2019 None Full Exam - General 1994 Constitutional general appearance Overall: in no acute distress 02/19/2019 None Full Exam - General 1994 Constitutional general appearance Overall: well nourished 02/19/2019 None Full Exam - General 1994 Constitutional general appearance Assistive Device: walker 02/19/2019 None Full Exam - General 1994 Eyes conjunctiva/eyelids Overall: conjunctiva clear 02/19/2019 None Full Exam - General 1994 Eyes pupils and irises Overall: pupils equal, round, reactive to light and accomodation 02/19/2019 None Full Exam - General 1995 Ears/Nose/Throat otoscopic exam Overall: external auditory canals clear 02/19/2019 None Full Exam - General 1994 Ears/Nose/Throat otoscopic exam Overall: tympanic membranes clear 02/19/2019 None Full Exam - General 1994 Ears/Nose/Throat oral cavity/pharynx/larynx Overall: oral mucosa clear 02/19/2019 None Full Exam - General 1994 Respiratory auscultation Overall: breath sounds clear bilaterally 02/19/2019 None Full Exam - General 1994 Respiratory respiratory effort/rhythm Overall: no retractions 02/19/2019 None Full Exam - General 1994 Respiratory respiratory effort/rhythm Overall: normal rate 02/19/2019 None Full Exam - General 1994 Cardiovascular extremities Overall: no clubbing 02/19/2019 None Full Exam - General 1994 Cardiovascular auscultation of heart Overall: regular rate 02/19/2019 None Full Exam - General 1994 Cardiovascular auscultation of heart Overall: normal heart sounds 02/19/2019 None Full Exam - General 1994 Cardiovascular auscultation of heart Overall: no murmurs 02/19/2019 None Full Exam - General 1994 Abdomen abdominal exam Overall: no tenderness 02/19/2019 None Full Exam - General 1994 Abdomen abdominal exam Overall: normal bowel sounds 02/19/2019 None Full Exam - General 1994 Neurologic cranial nerves Overall: crainial nerves 2 - 12 grossly intact 02/19/2019 None Full Exam - General 1994 Psychiatric orientation/consciousness Overall: oriented to person, place and time 02/19/2019 None Full Exam - General 1994 Constitutional general appearance Overall: well developed 01/20/2019 None Full Exam - General 1994 Constitutional general appearance Overall: in no acute distress 01/20/2019 None Full Exam - General 1994 Constitutional general appearance Overall: well nourished 01/20/2019 None Full Exam - General 1994 Constitutional general appearance Assistive Device: walker 01/20/2019 None Full Exam - General 1994 Eyes conjunctiva/eyelids Overall: conjunctiva clear 01/20/2019 None Full Exam - General 1994 Eyes pupils and irises Overall: pupils equal, round, reactive to light and accomodation 01/20/2019 None Full Exam - General 1994 Ears/Nose/Throat otoscopic exam Overall: external auditory canals clear 01/20/2019 None Full Exam - General 1994 Ears/Nose/Throat otoscopic exam Overall: tympanic membranes clear 01/20/2019 None Full Exam - General 1994 Ears/Nose/Throat oral cavity/pharynx/larynx Overall: oral mucosa clear 01/20/2019 None Full Exam - General 1994 Respiratory auscultation Overall: breath sounds clear bilaterally 01/20/2019 None Full Exam - General 1994 Respiratory respiratory effort/rhythm Overall: no retractions 01/20/2019 None Full Exam - General 1994 Respiratory respiratory effort/rhythm Overall: normal rate 01/20/2019 None Full Exam - General 1994 Cardiovascular extremities Overall: no clubbing 01/20/2019 None Full Exam - General 1994 Cardiovascular auscultation of heart Overall: regular rate 01/20/2019 None Full Exam - General 1994 Cardiovascular auscultation of heart Overall: normal heart sounds 01/20/2019 None Full Exam - General 1994 Cardiovascular auscultation of heart Overall: no murmurs 01/20/2019 None Full Exam - General 1994 Abdomen abdominal exam Overall: no tenderness 01/20/2019 None Full Exam - General 1994 Abdomen abdominal exam Overall: normal bowel sounds 01/20/2019 None Full Exam - General 1994 Musculoskeletal lower extremity Inspection - knee: swelling 01/20/2019 surgical incision covered with occlusive dressing-no redness, drainage noted Full Exam - General 1994 Integument inspection of skin Overall: few scattered moles, no gross abnormalities 01/20/2019 None Full Exam - General 1994 Neurologic cranial nerves Overall: crainial nerves 2 - 12 grossly intact 01/20/2019 None Full Exam - General 1994 Psychiatric orientation/consciousness Overall: oriented to person, place and time 01/20/2019 None Full Exam - General 1994 Constitutional general appearance Overall: well developed 09/30/2017 None Full Exam - General 1994 Constitutional general appearance Overall: in no acute distress 09/30/2017 None Full Exam - General 1994 Constitutional general appearance Overall: well nourished 09/30/2017 None Full Exam - General 1994 Constitutional general appearance Assistive Device: walker 09/30/2017 None Full Exam - General 1994 Eyes conjunctiva/eyelids Overall: conjunctiva clear 09/30/2017 None Full Exam [...] None Full Exam - General 1994 Eyes conjunctiva/eyelids Overall: conjunctiva clear 05/30/2017 None Full Exam [...] None Full Exam - General 1994 Eyes conjunctiva/eyelids Overall: conjunctiva clear 04/08/2017 None Full Exam - General 1994 Eyes pupils and irises Overall: pupils equal, round, reactive to light and accomodation 04/08/2017 None Procedures No Procedures data Vital Signs Date Vital 02/19/2019 Blood Pressure 1: 138/78 Code: 8480-6 BMI: 37.3 Code: 92745-5 Heart Rate 1: 80 bpm Height: 5'6" SpO2: 98% Weight: 231 lbs 01/20/2019 Blood Pressure 1: 154/86 Code: 8480-6 BMI: 36.6 Code: 48002-0 Heart Rate 1: 89 bpm Height: 5'6" SpO2: 97% Weight: 227 lbs 09/30/2017 Blood Pressure 1: 138/88 Code: 8480-6 BMI: 34.7 Code: 14735-5 Heart Rate 1: 73 bpm Height: 5'6" SpO2: 98% Weight: 215 lbs 05/30/2017 Blood Pressure 1: 134/82 Code: 8480-6 BMI: 35.2 Code: 87646-7 Heart Rate 1: 101 bpm Height: 5'6" SpO2: 97% Weight: 218 lbs 04/08/2017 Blood Pressure 1: 136/84 Code: 8480-6 BMI: 35.5 Code: 55194-2 Heart Rate 1: 86 bpm Height: 5'6" SpO2: 97% Weight: 220 lbs Functional Status No Functional Status data History of Present Illness Symptom Name Status Resu lt Effective Date Notes Quality intermittent 02/19/2019 None Blood Pressure Values pt checking blood pressure at home, did not bring in to clinic 02/19/2019 -Checks occasionally- does not have a wa y to check it at home Pertinent Findings diz ziness 02/19/2019 off and on Pertinent Findings Den ies dyspnea 02/19/2019 None Pertinent Findings edema 02/19/2019 in the right leg- hx blood clot about 10 years ago Location on the right 02/19/2019 None Quality intermittent 02/19/2019 None Triggers no known asso ciated factors 02/19/2019 None Onset and Resolution o ngoing 02/19/2019 None Onset and Resolution r esolved 02/19/2019 None Onset of Symptom durin g adulthood 02/19/2019 None Pertinent Findings diz ziness 01/20/2019 off and on Blood Pressure Values pt checking blood pressure at home, did not bring in to clinic 01/20/2019 -Checks occasionally- does not have a wa y to check it at home Pertinent Findings Den ies dyspnea 01/20/2019 None Pertinent Findings edema 01/20/2019 in the right leg- hx blood clot about 10 years ago Quality intermittent 01/20/2019 None Location on the right 01/20/2019 None Quality intermittent 01/20/2019 None Onset and Resolution D enies ongoing 01/20/2019 None Triggers no known asso ciated factors 01/20/2019 None pre-op/surgery consult Referred by Dr. Johnson 09/30/2017 None pre-op/surgery consult Procedure to be performed right total knee arthroplasty 09/30 None pre-op/surgery consult Scheduled everton e of procedure 10/23/2017 09/30/2017 Non e pre-op/surgery consult Significant M edical Conditions factor V 09/30/2017 None Hospital Follow Up _ Oth er: knee replacement 05/30/2017 None Hospital Follow Up Location left knee replacement 05/30/2017 None Hospital Follow Up Onset of Symptom _ days ago 05/30/2017 None Hospital Follow Up Onset and Resolution ongoing 05/30/2017 None Hospital Follow Up Significant Medic al Conditions knee replacement 05/30/2017 None Hospital Follow Up Alleviating Factors activity 05/30/2017 None Hospital Follow Up Alleviating Factors medication 05/30/2017 None Hospital Follow Up Pertinent Findings Denies fever 05/30/2017 None pre-op/surgery consult Referred by Dr. Johnson 04/08/2017 None pre-op/surgery consult Procedure to be performed left total knee replacement 04/08/2017 None pre-op/surgery consult Pertinent Findings pain 04/08/2017 None bone pain Location on th e left leg 04/08/2017 None bone pain Location on th e right leg 04/08/2017 OA bilateral knees bone pain Quality chronic 04/08/2017 None bone pain Onset and Resolution ongoing 04/08/2017 None bone pain Onset of Symptom _ months ago 04/08/2017 None bone pain Limitation on Activities moderately limits activities 04/08/2017 None bone pain Frequency of Episodes increasing 04/08/2017 None bone pain Triggers activ ity 04/08/2017 None bone pain Alleviating Factors rest [...] No Advance Directive data Encounters Encounter Performer Loca tion Codes Date ([id number]) [id number] EST. 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] Aisha Henson MD, [facility] CPT-4: 20562 02/19/2019 ([id number]) PREV VISIT E ST AGE 40-64 Diagnosis: Encounter for general adult medical examination with abnormal findings[ICD10: Z00.01] Aisah Henson MD, [facility] CPT-4: 84988 01/20/2019 ([id number]) PREV VISIT E ST AGE 40-64 Diagnosis: Other specified coagulation defects[ICD10: D68.8] Diagnosis: Other specified arthritis, right knee[ICD10: M13.861] Diagnosis: Encounter for general adult medical examination with abnormal findings[ICD10: Z00.01] Aisha Henson MD, [facility] CPT-4: 28962 09/30/2017 [id number] EST. PATIENT, LEVEL IV Diagnosis: Bilateral primary osteoarthritis of knee[ICD10: M17.0] Diagnosis: Urge incontinence[ICD10: N39.41] Diagnosis: Activated protein C resistance[ICD10: D68.51] Pam Henson MD, [facility] CPT-4: 65209 05/30/2017 ([id number]) Miscellaneou s no charge Diagnosis: Personal history of other venous thrombosis and embolism[ICD10: Z86.718] Aisha Henson MD, [facility] CPT-4: 03738 05/15/2017 OFFICE VISIT, NEW - LEVEL 3 Diagnosis: Bilateral primary osteoarthritis of knee[ICD10: M17.0] Diagnosis: Personal history of other venous thrombosis and embolism[ICD10: Z86.718] Pam Henson MD, [facility] CPT-4: 45387 04/08/2017 Plan of Care Planned Activity Notes C odes Status Date Visit Plan: Factor V Leiden deficie ncy - I have again recommended a referral to Dr. Guan for hx of factor v leiden - she would like a or saturday appt. Hypertension - well controlled - continue with current medications, continue with no added salt diet. Pt has been encouraged to exercise daily. The pt has been advised to call the office if there are any acute concerns about change in blood pressure readings at home. 02/19/2019 Appointment: Aisha Henson WPtel: [address] [place], [place] [id number] (15 min) Moderate 02/19/2019 Patient Education: Patient Medication Summary Completed 02/19/2019 Visit Plan: Well Adult - pt was cou nseled about diet, exercise, and encouraged to follow a heart healthy diet and increase activity level. The patient was instructed to RTC yearly for well adult exams and PRN for acute illnesses. The pt was also instructed to have yearly labs for check of cholesterol, thyroid, chem panel, CBC, and renal functioning. Hypertension - well controlled - continue with current medications, continue with no added salt diet. Pt has been encouraged to exercise daily. The pt has been advised to call the office if there are any acute concerns about change in blood pressure readings at home. 01/20/2019 Appointment: Aisha Henson WPtel: [facility] [place] (15 min) Moderate 01/20/2019 Patient Education: Patient Medication Summary Completed 01/20/2019 Visit Plan: Well Adult - pt was cou nseled about diet, exercise, and encouraged to follow [...] - enteric coated baby aspirin daily. 09/30/2017 Appointment: [facility] [phone] [phone] [place] (15 min) Moderate 09/30/2017 Patient Education: Patient Medication Summary Completed 09/30/2017 Care Plan: Referral Order SNOMED-CT : [id number] Pending 09/30/2017 Visit Plan: DJD left knee-p/o total knee replacement by Dr Johnson-doing well-bere to be removed next week Factor V Leiden-continue xarelto x 2 weeks as DVT prophylaxis Urge incontinence-continue oxybutynin 05/30/2017 App[facility]ment: [facility] Lindquist [facility]el[phone] [place] (30 min) Complex 05/30/2017 Patient Education: Patient Medication Summary Completed 05/30/2017 Patient Education: Obesity Completed 05/30/2017 Appointment: Nurse Visit 05/15/2017 Patient Education: Patient Medication Summary Completed 05/15/2017 Visit Plan: OA bilateral knees-jose francisco ent to have knee replacement surgery with Dr Johnson-will do blood disorder work up for HX DVT before clearance will be given. Lab order provided and will call patient will results when available. 04/08/2017 Appointment: Pam Lindquist WPtel: [address] [place], [place] [phone] [place] New Patient 04/08/2017 Patient Education: Patient Medication Summary Completed 04/08/2017 Referral: External, Ordering Provider Referral Appointment Requested Instructions Comment . OA bilateral knees -patient to have knee replacement surgery with Dr Johnson-will do blood disorder work up for HX DVT before clearance will be given. Lab order provided and will call patient will results when available. . Well Adult - pt wa s counseled about diet, exercise, and encouraged to follow a heart healthy diet and increase activity level. The patient was instructed to RTC yearly for well adult exams and PRN for acute illnesses. The pt was also instructed to have yearly labs for check of cholesterol, thyroid, chem panel, CBC, and renal functioning. Hypertension - well controlled - continue with current medications, continue with no added salt diet. Pt has been encouraged to exercise daily. The pt has been advised to call the office if there are any acute concerns about change in blood pressure readings at home. . DJD left knee-p/o total knee replacement by Dr Johnson- doing well-bere to be removed next week Factor V Leiden-continue xarelto x 2 weeks as DVT prophylaxis Urge incontinence-continue oxybutynin . Factor V Leiden de ficiency - I have again recommended a referral to Dr. Guan for hx of factor v leiden - she would like a or saturday appt. Hypertension - well controlled - continue with current medications, continue with no added salt diet. Pt has been encouraged to exercise daily. The pt has been advised to call the office if there are any acute concerns about change in blood pressure readings at home. . Well Adult - pt wa s counseled about diet, exercise, and encouraged to [...]
--- OUTSIDE RECORDS SUMMARY | 2020-01-26 06:59 | XMS REPORT | CCD ---
Author Author Shannan Lindquist Organization Aisha Henson MD, [facility] Address [address] [place] [address] Phone Care Team Providers Care Stores Clerk Name Role Phone PP Unavailable CCM Unavailable Summary Purpose Interface Exchange Insurance Providers Payer name Policy type / Coverage type Covered constitution party ID Effective Begin Date Effective End Date Blue Cross Blue Shield [facility] e Cross/Blue Shield [id number] 2017 Un known Family history Son Diagnosis Age At Onset Asthma Unknown Mother Diagnosis Age At Onset Osteoporosis Unknown Arthritis Unknown Father Diagnosis Age At Onset Cancer Unknown Social History Social History Element Codes Description Effective Dates Marital status Unknown S hellen 04/08/2017 Number of children Unknown 2 04/08/2017 Employment Unknown Retir ed 04/08/[address]: 312837734 Never smoker 04/08/[address]: 543405910 Never drinks alcohol 04/08/2017 Has the patient [...] Date Stop Date Sta tus Fill Instructions metoprolol tartrate 25 mg tablet RxNorm: 681885 TAKE 1/2 TABLET BY MO [facility] TWO TIMES A DAY 05/07/2019 11/02/2019 Active naproxen 500 mg tablet RxNorm: 777486 Tablet(s) TAKE ONE TABLET BY MOUTH DAILY 05/05/2019 07/03/2019 Ac tive naproxen 500 mg tablet RxNorm: 559861 Tablet(s) TAKE ONE TABLET BY MOUTH DAILY 04/06/2019 05/04/2019 In active naproxen 500 mg tablet RxNorm: 791439 TAKE ONE TABLET BY MOUTH DAILY 03/06/2019 04/04/2019 In active naproxen 500 mg tablet RxNorm: 874159 1 Tablet(s) PO daily 02/03/2019 03/04/2019 Inactive Lovenox 40 mg/0.4 mL subcutaneous syringe RxNorm: 077251 1 injection SQ daily the day before, day of and day after flight 01/20/2019 01/25/2019 Inactive prednisone 20 mg tablet RxNorm: 456233 2 Tablet(s) PO daily 01/20/2019 01/29/2019 Inactive metoprolol tartrate 25 mg tablet RxNorm: 317545 1/2 Tablet(s) PO BID 01/20/2019 05/06/2019 Inactive Lovenox 40 mg/0.4 mL subcutaneous syringe RxNorm: 458339 1 injection SQ Q12H 09/30/2017 10/15/2017 In active Lovenox 40 mg/0.4 mL subcutaneous syringe RxNorm: 099956 1 Milliliter(s) SQ Q1 2H 05/09/2017 05/15/2017 In active Lovenox 40 mg/0.4 mL subcutaneous syringe RxNorm: 819125 1 Milliliter(s) SQ Q1 2H 05/09/2017 05/08/2017 In active oxybutynin chloride 5 mg tablet RxNorm: 602583 1 Tablet(s) PO daily No Start Date Active aspirin 81 mg tablet ,delayed release RxNorm: 817536 1 Tablet(s) PO daily No Start Date Active pantoprazole oral RxNorm: 21304 oral No Start Date Active oxybutynin chloride oral RxNorm: [address] art Date 05/29/2017 Inactive naproxen 500 mg tablet RxNorm: 665573 1 Tablet(s) PO daily No Start Date [...] accomodation 02/19/2019 None Full Exam - General 1994 [...] 1: 138/78 Code: 8480-6 BMI: 37.3 Code: 84682-6 Heart Rate 1: 80 bpm Height: 5'6" SpO2: 98% Weight: 231 lbs 01/20/2019 Blood Pressure 1: 154/86 Code: 8480-6 BMI: 36.6 Code: 26420-3 Heart Rate 1: 89 bpm Height: 5'6" SpO2: 97% Weight: 227 lbs 09/30/2017 Blood Pressure 1: 138/88 Code: 8480-6 BMI: 34.7 Code: 66643-2 Heart Rate 1: 73 bpm Height: 5'6" SpO2: 98% Weight: 215 lbs 05/30/2017 Blood Pressure 1: 134/82 Code: 8480-6 BMI: 35.2 Code: 44412-5 Heart Rate 1: 101 bpm Height: 5'6" SpO2: 97% Weight: 218 lbs 04/08/2017 Blood Pressure 1: 136/84 Code: 8480-6 BMI: 35.5 Code: 30412-8 Heart Rate 1: 86 bpm Height: 5'6" [...] to check it at home Pertinent Findings jason samano 02/19/2019 off and on Pertinent Findings Den [...] durin g adulthood 02/19/2019 None Pertinent Findings jason samano 01/20/2019 off and on Blood Pressure Values [...] Encounters Encounter Performer Loca tion Codes Date (45524) 98877 EST. 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 PATIENT, LEVEL IV Diagnosis: Bilateral primary osteoarthritis of knee[ICD10: M17.0] Diagnosis: Urge incontinence[ICD10: N39.41] Diagnosis: Activated protein C resistance[ICD10: D68.51] [facility] CPT-4: 24967 05/30/2017 (30244) Miscellaneou s no charge Diagnosis: Personal history of other venous thrombosis and embolism[ICD10: Z86.718] [facility] CPT-4: 58326 05/15/2017 OFFICE VISIT, NEW - LEVEL 3 Diagnosis: Bilateral primary osteoarthritis of knee[ICD10: M17.0] Diagnosis: Personal history of other venous thrombosis and embolism[ICD10: Z86.718] [facility] CPT-4: 95754 04/08/2017 Plan of Care Planned Activity Notes [...] at home. 02/19/2019 Appointment: Aisha Henson WPtel: [address] [place], [place] [phone] (15 min) Moderate 02/19/2019 Patient Education: Patient [...] at home. 01/20/2019 Appointment: Aisha Henson WPtel: [facility] [place] (15 min) Moderate 01/20/2019 Patient Education: [...] aspirin daily. 09/30/2017 Appointment: Aisha Henson WPtel: [facility] [place] (15 min) Moderate 09/30/2017 Patient Education: Patient Medication Summary Completed 09/30/2017 Care Plan: Referral Order SNOMED-CT : 244837426 Pending 09/30/2017 Visit Plan: DJD left knee-p/o total knee replacement by Dr Johnson-doing well-bere to be removed next week Factor V Leiden-continue xarelto x 2 weeks as DVT prophylaxis Urge incontinence-continue oxybutynin 05/30/2017 [facility]ment: [facility] [phone] [phone] [place] (30 min) Complex 05/30/2017 Patient [...] when available. 04/08/2017 Appointment: [facility] [phone] [facility] [place] New Patient 04/08/2017 Patient Education: Patient [...]
--- OUTSIDE RECORDS SUMMARY | 2020-01-26 07:00 | XMS REPORT | CCD ---
Author Author Shannan Lindquist Organization Aisha Henson MD, [facility] Address [address] [place] [address] Phone Care Team Providers Care Marketing Information Analyst Name Role Phone PP Unavailable CCM Unavailable Summary Purpose Interface Exchange Insurance Providers Payer name Policy type / Coverage type Covered libertarian ID Effective Begin Date Effective End Date Blue Cross Blue Shield [facility] e Cross/Blue Shield [id number] 2017 Un known Family history Son Diagnosis Age At Onset Asthma Unknown Mother Diagnosis Age At Onset Osteoporosis Unknown Arthritis Unknown Father Diagnosis Age At Onset Cancer Unknown Social History Social History Element Codes Description Effective Dates Marital status Unknown S hellen 04/08/2017 Number of children Unknown 2 04/08/2017 Employment Unknown Retir ed 04/08/[address]: 625603353 Never smoker 04/08/[address]: 175120866 Never drinks alcohol 04/08/2017 Has the patient [...] Status Onset Date Resolved Date Encounter for sandra l adult medical examination with abnormal findings ICD-9: V70.0 ICD-10: Z00.01 Active 09/30/2017 Unknown Other specified arth ritis, right knee ICD-9: 716.36 ICD-10: M13.861 Active 09/30/2017 Unknown Other specified coag ulation defects ICD-9: [...] Condition Codes Effectiv e Dates Condition Status Encounter for genera l adult medical examination with abnormal findings ICD-9: V70.0 ICD-10: Z00.01 09/30/2017 Active Other specified arth ritis, right knee ICD-9: 716.36 ICD-10: M13.861 09/30/2017 Active Other specified coag ulation defects ICD-9: [...] Fill Instructions naproxen 500 mg tablet RxNorm: 945864 1 Tablet(s) PO daily 02/03/2019 03/04/2019 Active metoprolol tartrate 25 mg tablet RxNorm: 261930 1/2 Tablet(s) PO BID 01/20/2019 05/19/2019 Active Lovenox 40 mg/0.4 mL subcutaneous syringe RxNorm: 320951 1 injection SQ daily the day before, day of and day after flight 01/20/2019 01/25/2019 Inactive prednisone 20 mg tablet RxNorm: 777190 2 Tablet(s) PO daily 01/20/2019 01/29/2019 Inactive Lovenox 40 mg/0.4 mL subcutaneous syringe RxNorm: 091179 1 injection SQ Q12H 09/30/2017 10/15/2017 In active Lovenox 40 mg/0.4 mL subcutaneous syringe RxNorm: 035646 1 Milliliter(s) SQ Q1 2H 05/09/2017 05/15/2017 In active Lovenox 40 mg/0.4 mL subcutaneous syringe RxNorm: 684408 1 Milliliter(s) SQ Q1 2H 05/09/2017 05/08/2017 In active oxybutynin chloride 5 mg tablet RxNorm: 769105 1 Tablet(s) PO daily No Start Date Active aspirin 81 mg tablet ,delayed release RxNorm: 018767 1 Tablet(s) PO daily No Start Date Active pantoprazole oral RxNorm: 07017 oral No Start Date Active oxybutynin chloride oral RxNorm: [address] art Date 05/29/2017 Inactive naproxen 500 mg tablet RxNorm: 231043 1 Tablet(s) PO daily No Start Date 02/02/2019 Inactive Medication Administered No Medication Administered data Immunizations No Immunization data Assessments Condition Codes Effectiv e Dates Encounter for general adult medical exam ination with abnormal findings ICD-10: Z00.01 ICD-9: V70.0 01/20/2019 Other specified coagulation defects ICD-10: D68.8 ICD-9: 286.9 09/30/2017 Other specified arthritis, right knee ICD-10: [...] Visit Effective Dates Notes blood pressure followup 01/20/2019 pre-op/surgery consult 09/30/2017 Hospital Follow Up 05/30/2017 pre-op/surgery consult 04/08/2017 Results No Results data Review of Systems System Result Effective Dates Constitutional No recent illness 01/20/2019 Constitutional No [...] No Procedures data Vital Signs Date Vital 01/20/2019 Blood Pressure 1: 154/86 Code: 8480-6 BMI: 36.6 Code: 92838-3 Heart Rate 1: 89 bpm Height: 5'6" SpO2: 97% Weight: 227 lbs 09/30/2017 Blood Pressure 1: 138/88 Code: 8480-6 BMI: 34.7 Code: 18731-2 Heart Rate 1: 73 bpm Height: 5'6" SpO2: 98% Weight: 215 lbs 05/30/2017 Blood Pressure 1: 134/82 Code: 8480-6 BMI: 35.2 Code: 80021-2 Heart Rate 1: 101 bpm Height: 5'6" SpO2: 97% Weight: 218 lbs 04/08/2017 Blood Pressure 1: 136/84 Code: 8480-6 BMI: 35.5 Code: 57899-1 Heart Rate 1: 86 bpm Height: 5'6" SpO2: 97% Weight: 220 lbs Functional Status No Functional Status data History of Present Illness Symptom Name Status Resu lt Effective Date Notes Pertinent Findings jason samano 01/20/2019 off and [...] Encounters Encounter Performer Loca tion Codes Date (17212) PREV VISIT E ST AGE 40-64 Diagnosis: Encounter for general adult medical examination with abnormal findings[ICD10: Z00.01] [facility] CPT-4: 61472 01/20/2019 (17209) PREV VISIT E ST AGE 40-64 Diagnosis: 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 PATIENT, LEVEL IV Diagnosis: Bilateral primary osteoarthritis of knee[ICD10: M17.0] Diagnosis: Urge incontinence[ICD10: N39.41] Diagnosis: Activated protein C resistance[ICD10: D68.51] [facility] CPT-4: 28946 05/30/2017 (15051) Jose Roberto morales no charge Diagnosis: Personal history of other venous thrombosis and embolism[ICD10: Z86.718] Aisha Henson MD, [facility] CPT-4: 43380 05/15/2017 OFFICE VISIT, NEW - LEVEL 3 Diagnosis: Bilateral primary osteoarthritis of knee[ICD10: M17.0] Diagnosis: Personal history of other venous thrombosis and embolism[ICD10: Z86.718] [facility]a [facility] CPT-4: 49812 04/08/2017 Plan of Care Planned Activity Notes C odes Status Date Visit Plan: Well Adult - [...] at home. 01/20/2019 Appointment: Aisha Henson WPtel[facility] (15 min) Moderate 01/20/2019 Patient Education: Patient [...] aspirin daily. 09/30/2017 Appointment: [facility] [phone] [facility] [place] (15 min) Moderate 09/30/2017 Patient Education: Patient Medication Summary Completed 09/30/2017 Care Plan: Referral Order SNOMED-CT : 846733722 Pending 09/30/2017 Visit Plan: DJD left knee-p/o total knee replacement by Dr Johnson-doing well-bere to be removed next week Factor V Leiden-continue xarelto x 2 weeks as DVT prophylaxis Urge incontinence-continue oxybutynin 05/30/2017 Appointment: Pam Lindquist WPtel: [phone] (30 min) Complex 05/30/2017 Patient Education: Patient [...] available. 04/08/2017 Appointment: Pam [facility] [phone] [facility] New Patient 04/08/2017 Patient Education: Patient Medication [...] incontinence-continue oxybutynin . Well Adult - pt wa s [...]
--- OUTSIDE RECORDS SUMMARY | 2020-01-26 07:00 | XMS REPORT | CCD ---
Author Author Shannan Lindquist Organization Aisha Henson MD, [facility] Address [address] [place] [address] Phone Care Team Providers Care Pediatric Social Worker Name Role Phone PP Unavailable CCM Unavailable Summary Purpose Interface Exchange Insurance Providers Payer name Policy type / Coverage type Covered democrat ID Effective Begin Date Effective End Date Blue Cross Blue Shield [facility] e Cross/Blue Shield [id number] 2017 Un known Family history Son Diagnosis Age At Onset Asthma Unknown Mother Diagnosis Age At Onset Osteoporosis Unknown Arthritis Unknown Father Diagnosis Age At Onset Cancer Unknown Social History Social History Element Codes Description Effective Dates Marital status Unknown S hellen 04/08/2017 Number of children Unknown 2 04/08/2017 Employment Unknown Retir ed 04/08/[address]: 904447130 Never smoker 04/08/[address]: 917020077 Never drinks alcohol 04/08/2017 Has the patient [...] Fill Instructions naproxen 500 mg tablet RxNorm: 842157 1 Tablet(s) PO daily 02/03/2019 03/04/2019 Active metoprolol tartrate 25 mg tablet RxNorm: 916011 1/2 Tablet(s) PO BID 01/20/2019 05/19/2019 Active Lovenox 40 mg/0.4 mL subcutaneous syringe RxNorm: 415309 1 injection SQ daily the day before, day of and day after flight 01/20/2019 01/25/2019 Inactive prednisone 20 mg tablet RxNorm: 530823 2 Tablet(s) PO daily 01/20/2019 01/29/2019 Inactive Lovenox 40 mg/0.4 mL subcutaneous syringe RxNorm: 416097 1 injection SQ Q12H 09/30/2017 10/15/2017 In active Lovenox 40 mg/0.4 mL subcutaneous syringe RxNorm: 282146 1 Milliliter(s) SQ Q1 2H 05/09/2017 05/15/2017 In active Lovenox 40 mg/0.4 mL subcutaneous syringe RxNorm: 809463 1 Milliliter(s) SQ Q1 2H 05/09/2017 05/08/2017 In active oxybutynin chloride 5 mg tablet RxNorm: 092128 1 Tablet(s) PO daily No Start Date Active aspirin 81 mg tablet ,delayed release RxNorm: 696837 1 Tablet(s) PO daily No Start Date Active pantoprazole oral RxNorm: 87252 oral No Start Date Active oxybutynin chloride oral RxNorm: [address] art Date 05/29/2017 Inactive naproxen 500 mg tablet RxNorm: 645365 1 Tablet(s) PO daily No Start Date [...] 1: 138/78 Code: 8480-6 BMI: 37.3 Code: 68518-4 Heart Rate 1: 80 bpm Height: 5'6" SpO2: 98% Weight: 231 lbs 01/20/2019 Blood Pressure 1: 154/86 Code: 8480-6 BMI: 36.6 Code: 33170-9 Heart Rate 1: 89 bpm Height: 5'6" SpO2: 97% Weight: 227 lbs 09/30/2017 Blood Pressure 1: 138/88 Code: 8480-6 BMI: 34.7 Code: 98611-7 Heart Rate 1: 73 bpm Height: 5'6" SpO2: 98% Weight: 215 lbs 05/30/2017 Blood Pressure 1: 134/82 Code: 8480-6 BMI: 35.2 Code: 78576-2 Heart Rate 1: 101 bpm Height: 5'6" SpO2: 97% Weight: 218 lbs 04/08/2017 Blood Pressure 1: 136/84 Code: 8480-6 BMI: 35.5 Code: 67721-1 Heart Rate 1: 86 bpm Height: 5'6" [...] Encounters Encounter Performer Loca tion Codes Date 04855) 02013 EST. 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 PATIENT, LEVEL IV Diagnosis: Bilateral primary osteoarthritis of knee[ICD10: M17.0] Diagnosis: Urge incontinence[ICD10: N39.41] Diagnosis: Activated protein C resistance[ICD10: D68.51] [facility] CPT-4: 01897 05/30/2017 (23805) Jose Roberto morales no charge Diagnosis: Personal history of other venous thrombosis and embolism[ICD10: Z86.718] [facility] CPT-4: 91308 05/15/2017 OFFICE VISIT, NEW - LEVEL 3 Diagnosis: Bilateral primary osteoarthritis of knee[ICD10: M17.0] Diagnosis: Personal history of other venous thrombosis and embolism[ICD10: Z86.718] [facility] CPT-4: 56389 04/08/2017 Plan of Care Planned Activity Notes [...] at home. 02/19/2019 Appointment: Aisha Henson WPtel: [address] [place], [place] [phone] (15 min) Moderate 02/19/2019 Patient Education: Patient [...] at home. 01/20/2019 Appointment: Aisha Henson WPtel: [address] [facility] (15 min) Moderate 01/20/2019 Patient Education: Patient [...] aspirin daily. 09/30/2017 Appointment: Aisha Henson WPtel: [address] [place] [address] (15 min) Moderate 09/30/2017 Patient Education: Patient Medication Summary Completed 09/30/2017 Care Plan: Referral Order SNOMED-CT : 142471432 Pending 09/30/2017 Visit Plan: DJD left knee-p/o total knee replacement by Dr Johnson-doing well-bere to be removed next week Factor V Leiden-continue xarelto x 2 weeks as DVT prophylaxis Urge incontinence-continue oxybutynin 05/30/2017 Appointment: Pam Lindquist WPtel: [address] [place], [place] [phone] (30 min) Complex 05/30/2017 Patient Education: Patient [...] when available. 04/08/2017 Appointment: Pam Lindquist WPtel: [phone] New Patient 04/08/2017 Patient Education: Patient Medication [...]
--- OUTSIDE RECORDS SUMMARY | 2020-01-26 07:00 | XMS REPORT | CCD ---
Author Author Shannan Lindquist Organization Aisha Henson MD, [facility] Address [address] [place] [address] Phone Care Team Providers Care Tip Fixer Name Role Phone PP Unavailable CCM Unavailable Summary Purpose Interface Exchange Insurance Providers Payer name Policy type / Coverage type Covered alliance party ID Effective Begin Date Effective End Date Blue Cross Blue Shield [facility] e Cross/Blue Shield [id number] 2017 Un known Family history Son Diagnosis Age At Onset Asthma Unknown Mother Diagnosis Age At Onset Osteoporosis Unknown Arthritis Unknown Father Diagnosis Age At Onset Cancer Unknown Social History Social History Element Codes Description Effective Dates Marital status Unknown S hellen 04/08/2017 Number of children Unknown 2 04/08/2017 Employment Unknown Retir ed 04/08/[address]: 228858106 Never smoker 04/08/[address]: 432096008 Never drinks alcohol 04/08/2017 Has the patient [...] Fill Instructions naproxen 500 mg tablet RxNorm: 539984 TAKE ONE TABLET BY MOUTH DAILY 03/06/2019 04/04/2019 Ac tive naproxen 500 mg tablet RxNorm: 154210 1 Tablet(s) PO daily 02/03/2019 03/04/2019 Inactive metoprolol tartrate 25 mg tablet RxNorm: 749368 1/2 Tablet(s) PO BID 01/20/2019 05/19/2019 Active Lovenox 40 mg/0.4 mL subcutaneous syringe RxNorm: 664528 1 injection SQ daily the day before, day of and day after flight 01/20/2019 01/25/2019 Inactive prednisone 20 mg tablet RxNorm: 379260 2 Tablet(s) PO daily 01/20/2019 01/29/2019 Inactive Lovenox 40 mg/0.4 mL subcutaneous syringe RxNorm: 726734 1 injection SQ Q12H 09/30/2017 10/15/2017 In active Lovenox 40 mg/0.4 mL subcutaneous syringe RxNorm: 599972 1 Milliliter(s) SQ Q1 2H 05/09/2017 05/15/2017 In active Lovenox 40 mg/0.4 mL subcutaneous syringe RxNorm: 205116 1 Milliliter(s) SQ Q1 2H 05/09/2017 05/08/2017 In active oxybutynin chloride 5 mg tablet RxNorm: 404806 1 Tablet(s) PO daily No Start Date Active aspirin 81 mg tablet ,delayed release RxNorm: 713567 1 Tablet(s) PO daily No Start Date Active pantoprazole oral RxNorm: 27592 oral No Start Date Active oxybutynin chloride oral RxNorm: [address] art Date 05/29/2017 Inactive naproxen 500 mg tablet RxNorm: 204189 1 Tablet(s) PO daily No Start Date [...] 1: 138/78 Code: 8480-6 BMI: 37.3 Code: 84445-0 Heart Rate 1: 80 bpm Height: 5'6" SpO2: 98% Weight: 231 lbs 01/20/2019 Blood Pressure 1: 154/86 Code: 8480-6 BMI: 36.6 Code: 28418-4 Heart Rate 1: 89 bpm Height: 5'6" SpO2: 97% Weight: 227 lbs 09/30/2017 Blood Pressure 1: 138/88 Code: 8480-6 BMI: 34.7 Code: 36651-0 Heart Rate 1: 73 bpm Height: 5'6" SpO2: 98% Weight: 215 lbs 05/30/2017 Blood Pressure 1: 134/82 Code: 8480-6 BMI: 35.2 Code: 01379-5 Heart Rate 1: 101 bpm Height: 5'6" SpO2: 97% Weight: 218 lbs 04/08/2017 Blood Pressure 1: 136/84 Code: 8480-6 BMI: 35.5 Code: 99535-9 Heart Rate 1: 86 bpm Height: 5'6" [...] Encounters Encounter Performer Loca tion Codes Date ([id number]) [id number] EST. 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 PATIENT, LEVEL IV Diagnosis: Bilateral primary osteoarthritis of knee[ICD10: M17.0] Diagnosis: Urge incontinence[ICD10: N39.41] Diagnosis: Activated protein C resistance[ICD10: D68.51] [facility] CPT-4: 47702 05/30/2017 ([id number]) Miscellaneou s no charge Diagnosis: Personal history of other venous thrombosis and embolism[ICD10: Z86.718] [facility] CPT-4: 54083 05/15/2017 OFFICE VISIT, NEW - LEVEL 3 Diagnosis: Bilateral primary osteoarthritis of knee[ICD10: M17.0] Diagnosis: Personal history of other venous thrombosis and embolism[ICD10: Z86.718] [facility] CPT-4: 20926 04/08/2017 Plan of Care Planned Activity Notes C odes Status Date Visit Plan: Factor V Leiden deficie che - I have again recommended a referral [...] at home. 02/19/2019 Appointment: Aisha Henson WPtel: [address] [place], [place] [phone] (15 min) Moderate 02/19/2019 Patient Education: Patient [...] at home. 01/20/2019 Appointment: Aisha Henson WPtel: [address] [place], [place] [phone] (15 min) Moderate 01/20/2019 Patient Education: Patient [...] aspirin daily. 09/30/2017 [facility] [phone] [phone] ([facility] min) Moderate 09/30/2017 Patient Education: Patient Medication Summary Completed 09/30/2017 Care Plan: Referral Order SNOMED-CT : [id number] Pending 09/30/2017 Visit Plan: DJD left knee-p/o total knee replacement by Dr Johnson-doing well-bere to be removed next week Factor V Leiden-continue xarelto x 2 weeks as DVT prophylaxis Urge incontinence-continue oxybutynin 05/30/2017 Appointment: Pam Lindquist WPtel: [facility] [phone] (30 min) Complex 05/30/2017 Patient Education: Patient [...] when available. 04/08/2017 Appointment: Pam Lindquist WPtel: [phone] New Patient 04/08/2017 Patient Education: Patient Medication [...]
--- OUTSIDE RECORDS SUMMARY | 2020-01-26 07:01 | XMS REPORT | Continuity of Care Document ---
Author Organization Unknown Address Unknown Phone Unavailable Allergies Active Description Code Type Severity Reaction Onset Reported/Identified Relationship to Patient Clinical Status Yes No Known Drug Allergies [id number] Drug Allergy Unknown N/A 01/19/2020 Medications There is no data. Problems Date Dx Coded Attending Type Code Diagnosis Diagnosed By 08/01/1229 NIALL MONTES DO, Ot G89.4 CHRONIC PAIN SYNDROME 08/01/1229 NIALL MONTES DO, Ot M54.16 RADICULOPATHY, LUMBAR REGION 08/01/1426 TIA PAREDES, NIALL Brock Ot Z47.1 AFTERCARE FOLLOWING JOINT REPLACEMENT WILLS 08/01/1426 NIALL WEBER MD Ot Z96.652 PRESENCE OF LEFT ARTIFICIAL KNEE JOINT 08/01/1518 NIALL WEBER MD, Ot Z47.1 AFTERCARE FOLLOWING JOINT REPLACEMENT WILLS 08/01/1518 NIALL WEBER MD, Ot Z96.652 PRESENCE OF LEFT ARTIFICIAL KNEE JOINT 01/29/2017 GABE MOCK APRN Ot M17.12 UNILATERAL PRIMARY OSTEOARTHRITIS, LEFT 01/29/2017 GABE MOCK APRN Ot M23.92 UNSPECIFIED INTERNAL DERANGEMENT OF LEFT 01/29/2017 GABE MOCK APRN Ot S89.92XA UNSPECIFIED INJURY OF LEFT LOWER LEG, IN 02/01/2017 GABE MOCK APRN Ot M17.12 UNILATERAL PRIMARY OSTEOARTHRITIS, LEFT 02/01/2017 GABE MOCK APRN Ot M23.92 UNSPECIFIED INTERNAL DERANGEMENT OF LEFT 02/01/2017 GABE MOCK APRN Ot S89.92XA UNSPECIFIED INJURY OF LEFT LOWER LEG, IN 04/17/2017 PAM GUAN Ot Z01.812 ENCOUNTER FOR PREPROCEDURAL LABORATORY E 04/17/2017 PAM GUAN Ot Z86.718 PERSONAL HISTORY OF OTHER VENOUS THROMBO 04/17/2017 PAM GUAN Ot Z01.812 ENCOUNTER FOR PREPROCEDURAL LABORATORY E 04/17/2017 PAM GUAN Ot Z86.718 PERSONAL HISTORY OF OTHER VENOUS THROMBO 04/27/2017 PAM GUAN Ot Z01.812 ENCOUNTER FOR PREPROCEDURAL LABORATORY E 04/27/2017 PAM GUAN Ot Z86.718 PERSONAL HISTORY OF OTHER VENOUS THROMBO 05/16/2017 NIALL WEBER MD, Ot M17.12 UNILATERAL PRIMARY OSTEOARTHRITIS, LEFT 05/16/2017 NIALL WEBER MD Ot R53.83 OTHER FATIGUE 05/16/2017 NIALL WEBER MD, Ot Z01.811 ENCOUNTER FOR PREPROCEDURAL RESPIRATORY 05/16/2017 NIALL WEBER MD, Ot Z01.812 ENCOUNTER FOR PREPROCEDURAL LABORATORY E 05/23/2017 NIALL WEBER MD, Ot D68.2 HEREDITARY DEFICIENCY OF OTHER CLOTTING 05/23/2017 NIALL WEBER MD Ot K21.9 GASTRO-ESOPHAGEAL REFLUX DISEASE WITHOUT 05/23/2017 NIALL WEBER MD, Ot M17.12 UNILATERAL PRIMARY OSTEOARTHRITIS, LEFT 05/23/2017 NIALL WEBER MD Ot N39.41 URGE INCONTINENCE 05/25/2017 NIALL WEBER MD, Ot D68.2 HEREDITARY DEFICIENCY OF OTHER CLOTTING 05/25/2017 NIALL WEBER MD, Ot K21.9 GASTRO-ESOPHAGEAL REFLUX DISEASE WITHOUT 05/25/2017 NIALL WEBER MD, Ot M17.12 UNILATERAL PRIMARY OSTEOARTHRITIS, LEFT 05/25/2017 NIALL WEBER MD Ot N39.41 URGE INCONTINENCE 05/25/2017 NIALL WEBER MD Ot Z79.01 ORIENTAL RUG REPAIRER (CURRENT) USE OF ANTICOAGULANT 05/25/2017 NIALL WEBER MD Ot Z86.718 PERSONAL HISTORY OF OTHER VENOUS THROMBO 06/11/2017 NIALL WEBER MD Ot Z47.1 AFTERCARE FOLLOWING JOINT REPLACEMENT WILLS 06/11/2017 NIALL WEBER MD Ot Z96.652 PRESENCE OF LEFT ARTIFICIAL KNEE JOINT 07/17/2017 NIALL WEBER MD Ot Z47.1 AFTERCARE FOLLOWING JOINT REPLACEMENT WILLS 07/17/2017 NIALL WEBER MD Ot Z96.652 PRESENCE OF LEFT ARTIFICIAL KNEE JOINT 08/23/2017 NIALL WEBER MD, Ot Z47.1 AFTERCARE FOLLOWING JOINT REPLACEMENT WILLS 08/23/2017 NIALL WEBER MD Ot Z96.652 PRESENCE OF LEFT ARTIFICIAL KNEE JOINT 10/17/2017 NIALL WEBER MD Ot M17.11 UNILATERAL PRIMARY OSTEOARTHRITIS, RIGHT 10/17/2017 NIALL WEBER MD Ot R53.83 OTHER FATIGUE 10/17/2017 NIALL WEBER MD Ot Z01.812 ENCOUNTER FOR PREPROCEDURAL LABORATORY E 10/17/2017 NIALL WEBER MD Ot Z11.2 ENCOUNTER FOR SCREENING FOR OTHER BACTER 10/17/2017 PAM GUANP Ot Z01.812 ENCOUNTER FOR PREPROCEDURAL LABORATORY E 10/17/2017 PAM GUAN BIOPROCESS DEVELOPMENT ENGINEER Ot Z86.718 PERSONAL HISTORY OF OTHER VENOUS THROMBO 10/17/2017 PAM GUAN BIOPROCESS DEVELOPMENT ENGINEER Ot Z01.812 ENCOUNTER FOR PREPROCEDURAL LABORATORY E 10/17/2017 PAM GUANP Ot Z86.718 PERSONAL HISTORY OF OTHER VENOUS THROMBO 10/18/2017 NIALL WEBER MD Ot M17.11 UNILATERAL PRIMARY OSTEOARTHRITIS, RIGHT 10/18/2017 NIALL WEBER MD Ot R53.83 OTHER FATIGUE 10/18/2017 NIALL WEBER MD Ot Z01.812 ENCOUNTER FOR PREPROCEDURAL LABORATORY E 10/18/2017 NIALL WEBER MD Ot Z11.2 ENCOUNTER FOR SCREENING FOR OTHER BACTER 10/26/2017 NIALL WEBER MD Ot D68.2 HEREDITARY DEFICIENCY OF OTHER CLOTTING 10/26/2017 NIALL WEBER MD Ot K21.9 GASTRO-ESOPHAGEAL REFLUX DISEASE WITHOUT 10/26/2017 NIALL WEBER MD Ot M17.11 UNILATERAL PRIMARY OSTEOARTHRITIS, RIGHT 10/26/2017 NIALL WEBER MD Ot N39.41 URGE INCONTINENCE 10/26/2017 NIALL WEBER MD Ot Z2 3 ENCOUNTER FOR IMMUNIZATION 10/26/2017 NIALL WEBER MD Ot Z86.718 PERSONAL HISTORY OF OTHER VENOUS THROMBO 10/26/2017 NIALL WEBER MD Ot Z96.652 PRESENCE OF LEFT ARTIFICIAL KNEE JOINT 11/21/2017 PAM GUANP Ot Z01.812 ENCOUNTER FOR PREPROCEDURAL LABORATORY E 11/21/2017 GENNY GUANIE M BIOPROCESS DEVELOPMENT ENGINEER Ot Z86.718 PERSONAL HISTORY OF OTHER VENOUS THROMBO 11/21/2017 ROGEPAM Do BIOPROCESS DEVELOPMENT ENGINEER Ot Z01.812 ENCOUNTER FOR PREPROCEDURAL LABORATORY E 11/21/2017 GUANPAM BIOPROCESS DEVELOPMENT ENGINEER Ot Z86.718 PERSONAL HISTORY OF OTHER VENOUS THROMBO 11/21/2017 ROGEPAM Do BIOPROCESS DEVELOPMENT ENGINEER Ot Z01.812 ENCOUNTER FOR PREPROCEDURAL LABORATORY E 11/21/2017 ROGE PAM Do BIOPROCESS DEVELOPMENT ENGINEER Ot Z86.718 PERSONAL HISTORY OF OTHER VENOUS THROMBO 11/21/2017 ROGE PAM M BIOPROCESS DEVELOPMENT ENGINEER Ot Z01.812 ENCOUNTER FOR PREPROCEDURAL LABORATORY E 11/21/2017 PAM GUAN BIOPROCESS DEVELOPMENT ENGINEER Ot Z86.718 PERSONAL HISTORY OF OTHER VENOUS THROMBO 11/21/2017 NIALL WEBER MD Ot Z47.1 AFTERCARE FOLLOWING JOINT REPLACEMENT WILLS 11/21/2017 NIALL WEBER MD Ot Z96.652 PRESENCE OF LEFT ARTIFICIAL KNEE JOINT 11/26/2017 NIALL WEBER MD Ot Z47.1 AFTERCARE FOLLOWING JOINT REPLACEMENT WILLS 11/26/2017 NIALL WEBER MD Ot Z96.652 PRESENCE OF LEFT ARTIFICIAL KNEE JOINT 12/26/2017 NIALL WEBER MD Ot Z47.1 AFTERCARE FOLLOWING JOINT REPLACEMENT WILLS 12/26/2017 NIALL WEBER MD Ot Z96.652 PRESENCE OF LEFT ARTIFICIAL KNEE JOINT 11/26/2018 TALITA HOFF MD, Ot J06.9 ACUTE UPPER RESPIRATORY INFECTION, UNSPE 11/26/2018 TALITA HOFF MD, Ot M54.41 LUMBAGO WITH SCIATICA, RIGHT SIDE 11/26/2018 TALITA HOFF MD, Ot M79.661 PAIN IN RIGHT LOWER LEG 11/26/2018 TALITA HOFF MD, Ot Z79.82 ORIENTAL RUG REPAIRER (CURRENT) USE OF ASPIRIN 11/26/2018 TALITA HOFF MD, Ot Z86.718 PERSONAL HISTORY OF OTHER VENOUS THROMBO 11/26/2018 TALITA HOFF MD, Ot Z90.710 ACQUIRED ABSENCE OF BOTH CERVIX AND UTER 11/27/2018 PAM GUAN Ot M79.661 PAIN IN RIGHT LOWER LEG 11/28/2018 TALITA HOFF MD, Ot J06.9 ACUTE UPPER RESPIRATORY INFECTION, UNSPE 11/28/2018 TALITA HOFF MD, Ot M54.41 LUMBAGO WITH SCIATICA, RIGHT SIDE 11/28/2018 TALITA HOFF MD, Ot M79.661 PAIN IN RIGHT LOWER LEG 11/28/2018 TALITA HOFF MD, Ot Z79.82 ORIENTAL RUG REPAIRER (CURRENT) USE OF ASPIRIN 11/28/2018 TALITA HOFF MD, Ot Z86.718 PERSONAL HISTORY OF OTHER VENOUS THROMBO 11/28/2018 TALITA HOFF MD, Ot Z90.710 ACQUIRED ABSENCE OF BOTH CERVIX AND UTER 12/16/2018 PAM GUAN Ot M79.661 PAIN IN RIGHT LOWER LEG 04/16/2019 PAM GUAN Ot M79.661 PAIN IN RIGHT LOWER LEG 04/17/2019 ANDREW MARCUM MD, Ot D68.51 ACTIVATED PROTEIN C RESISTANCE 04/17/2019 ANDREW MARCUM MD Ot I10 ESSENTIAL (PRIMARY) HYPERTENSION 04/17/2019 ANDREW MARCUM MD Ot Z79.82 ORIENTAL RUG REPAIRER (CURRENT) USE OF ASPIRIN 04/17/2019 ANDREW MARCUM MD Ot Z79.899 OTHER ORIENTAL RUG REPAIRER (CURRENT) DRUG THERAPY 04/17/2019 ANDREW MARCUM MD Ot Z80.1 FAMILY HISTORY OF MALIG NEOPLASM OF TRAC 04/17/2019 ANDREW MARCUM MD, Ot Z86.718 PERSONAL HISTORY OF OTHER VENOUS THROMBO 04/17/2019 ANDREW MARCUM MD Ot Z96.652 PRESENCE OF LEFT ARTIFICIAL KNEE JOINT 06/11/2019 ANDREW MARCUM MD, Ot D68.51 ACTIVATED PROTEIN C RESISTANCE 06/11/2019 ANDREW MARCUM MD Ot I10 ESSENTIAL (PRIMARY) HYPERTENSION 06/11/2019 ANDREW MARCUM MD Ot Z79.82 ORIENTAL RUG REPAIRER (CURRENT) USE OF ASPIRIN 06/11/2019 ANDREW MARCUM MD Ot Z79.899 OTHER ORIENTAL RUG REPAIRER (CURRENT) DRUG THERAPY 06/11/2019 ANDREW MARCUM MD Ot Z80.1 FAMILY HISTORY OF MALIG NEOPLASM OF TRAC 06/11/2019 ANDREW MARCUM MD, Ot Z86.718 PERSONAL HISTORY OF OTHER VENOUS THROMBO 06/11/2019 ANDREW MARCUM MD, Ot Z96.652 PRESENCE OF LEFT ARTIFICIAL KNEE JOINT 06/12/2019 ANDREW MARCUM MD Ot D68.51 ACTIVATED PROTEIN C RESISTANCE 06/12/2019 ANDREW MARCUM MD Ot I10 ESSENTIAL (PRIMARY) HYPERTENSION 06/12/2019 ANDREW MARCUM MD Ot Z79.82 GROUP HOME (CURRENT) USE OF ASPIRIN 06/12/2019 ANDREW MARCUM MD Ot Z79.899 OTHER GROUP HOME (CURRENT) DRUG THERAPY 06/12/2019 ANDREW MARCUM MD Ot Z80.1 FAMILY HISTORY OF MALIG NEOPLASM OF TRAC 06/12/2019 ANDREW MARCUM MD Ot Z86.718 PERSONAL HISTORY OF OTHER VENOUS THROMBO 06/12/2019 ANDREW MARCUM MD, Ot Z96.652 PRESENCE OF LEFT ARTIFICIAL KNEE JOINT 06/24/2019 SATURNINO LEWIS Ot M47.26 OTHER SPONDYLOSIS WITH RADICULOPATHY, DORITA 06/24/2019 SATURNINO LEWIS Ot M48.07 SPINAL STENOSIS, LUMBOSACRAL REGION 06/24/2019 SATURNINO LEWIS Ot M51.16 INTERVERTEBRAL DISC DISORDERS W RADICULO 08/07/2019 NIALL MONTES DO L Ot G89.4 CHRONIC PAIN SYNDROME 08/07/2019 HEARNDON NIALL ANGEL Ot M54.16 RADICULOPATHY, LUMBAR REGION 08/13/2019 NIALL MONTES DO Ot G89.4 CHRONIC PAIN SYNDROME 08/13/2019 CHRISTIANNDON NIALL ANGEL Ot M54.16 RADICULOPATHY, LUMBAR REGION 08/13/2019 NIALL MONTES DO L Ot G89.4 CHRONIC PAIN SYNDROME 08/13/2019 NIALL MONTES DO Ot M54.16 RADICULOPATHY, LUMBAR REGION 09/03/2019 CHRISTIANNDNIALL PARTIDA DO Ot G89.4 CHRONIC PAIN SYNDROME 09/03/2019 HEARNDON NIALL ANGEL Ot M54.16 RADICULOPATHY, LUMBAR REGION 10/27/2019 PIOTR TAPIA APRN Ot M19.012 PRIMARY OSTEOARTHRITIS, LEFT SHOULDER 10/27/2019 PIOTR TAPIA APRN Ot M47.812 SPONDYLOSIS W/O MYELOPATHY OR RADICULOPA 10/30/2019 W I10 Essent ial (primary) hypertension Pam Guan 10/30/2019 W M25.512 Le ft shoulder pain Pam Guan 10/30/2019 W M25.512 Le ft shoulder pain Piotr Tapia 10/30/2019 W M54.2 Neck pain Piotr Tapia 01/19/2020 ANDREW MARCUM MD Ot D68.51 ACTIVATED PROTEIN C RESISTANCE 01/19/2020 ANDREW MARCUM MD Ot I10 ESSENTIAL (PRIMARY) HYPERTENSION 01/19/2020 ANDREW MARCUM MD Ot Z79.82 ORIENTAL RUG REPAIRER (CURRENT) USE OF ASPIRIN 01/19/2020 ANDREW MARCUM MD, Ot Z79.899 OTHER ORIENTAL RUG REPAIRER (CURRENT) DRUG THERAPY 01/19/2020 ANDREW MARCUM MD Ot Z80.1 FAMILY HISTORY OF MALIG NEOPLASM OF TRAC 01/19/2020 ANDREW MARCUM MD Ot Z86.718 PERSONAL HISTORY OF OTHER VENOUS THROMBO 01/19/2020 ANDREW MARCUM MD Ot Z96.652 PRESENCE OF LEFT ARTIFICIAL KNEE JOINT Procedures Code Description Performed By Per formed On [id number] RE PLACE OF L KNEE JT WITH SYNTH SUB, KATIE 05/22/[id number] OF R KNEE JT WITH SYNTH SUB, KATIE 10/23/2017 Results Test Result Range Complete blood count (CBC) with automate d white blood cell (WBC) differential - 04/08/17 14:56 Blood leukocytes automated count (number/volume) 6.0 10*3/uL 4.3-11.0 Blood erythrocytes automated count (number/volume) 4.32 10*6/uL 4.35-5.85 Venous blood hemoglobin measurement (mass/volume) 14.0 g/dL 11.5-16.0 Blood hematocrit (volume fraction) 42 % 35-52 Automated erythrocyte mean corpuscular volume 96 [ foz_us] 80-99 Automated erythrocyte mean corpuscular h emoglobin (mass per erythrocyte) 32 pg 25-34 Automated erythrocyte mean corpuscular h emoglobin concentration measurement (mass/volume) 34 g/dL 32-36 Automated erythrocyte distribution width ratio 12. 5 % 10.0- 14.5 Automated blood platelet count (count/volume) 207 10*3/uL [...] 10*3 1.0-4.0 Blood monocytes automated count (number/volume) 0. 4 10*3 0.0-1.0 Automated eosinophil count 0.2 10*3/uL 0 .0-0.3 Automated blood basophil count (count/volume) 0.0 10*3/uL 0.0-0.1 Comprehensive metabolic panel - 04/08/17 14:56 Serum or plasma sodium measurement (moles/volume) 140 mmol/L 135-145 Serum or plasma potassium measurement (moles/volume) 3.8 mmol/L 3.6-5.0 Serum or plasma chloride measurement (moles/volume) 108 mmol/L 98-107 Carbon dioxide 23 mmol/L 21-32 Serum or plasma anion gap determination (moles/volume) 9 mmol/L 5-14 Serum or plasma urea nitrogen measurement (mass/volume ) 20 mg/dL 7-18 Serum or plasma creatinine measurement (mass/volume) 0.72 mg/dL 0.60-1.30 Serum or plasma urea nitrogen/creatinine mass ratio 28 NRG Serum or plasma creatinine measurement w ith calculation of estimated glomerular filtration rate > NRG Serum or plasma glucose measurement (mass/volume) 85 mg/dL 70-105 Serum or plasma calcium measurement (mass/volume) 9.3 mg/dL 8.5-10.1 Serum or plasma total bilirubin measurement (mass/volu me) 0.8 mg/dL 0.1-1.0 Serum or plasma alkaline phosphatase leroy surement (enzymatic activity/volume) 64 U/L 40-136 Serum or plasma aspartate aminotransfera se measurement (enzymatic activity/volume) 16 U/L 5-34 Serum or plasma alanine aminotransferase measurement (enzymatic activity/volume) 13 U/L 0-55 Serum or plasma protein measurement (mass/volume) 7.0 g/dL 6.4-8.2 Serum or plasma albumin measurement (mass/volume) 4.0 g/dL 3.2-4.5 Protein C antigen assay - 04/08/17 14:56 Protein C antigen assay 106 % 63-153 Protein S measurement in platelet poor p lasma by coagulation assay (units/volume) - 04/08/17 14:56 Protein S measurement in platelet poor p lasma by coagulation assay (units/volume) 121 % 63-126 Von Willebrand factor antigen measuremen t - 04/08/17 14:56 Factor VIII (VW factor) antigen assay 130 % 50-160 Blood or tissue F5 gene p.R506Q detectio n by molecular genetics method - 04/08/17 14:56 Blood or tissue F5 gene p.R506Q detectio n by molecular genetics method Heterozygous Negative Coagulation factor 5 activated measureme nt (units/volume) in platelet poor plasma by coagulation assay See Footnote NRG Methicillin resistant Staphylococcus aur eus (MRSA) screening culture - 05/16/17 12:08 Methicillin resistant Staphylococcus aureus (MRSA) scr eening culture NEG NRG Complete urinalysis with reflex to cultu re - 05/16/17 12:09 Urine color determination YELLOW NRG Urine clarity determination CLEAR NR G Urine pH measurement by test strip 6 5-9 Specific gravity of urine by test strip 1.020 1.016-1.022 Urine protein assay by test strip, semi-quantitative NEGATIVE NEGATIVE Urine glucose detection by automated test strip NE GATIVE NEGATIVE Erythrocytes detection in urine sediment by light micr oscopy 2+ NEGATIVE Urine ketones detection by automated test strip NE GATIVE NEGATIVE Urine nitrite detection by test strip POSITIVE NEGATIVE Urine total bilirubin detection by test strip NEGA TIVE NEGATIVE Urine urobilinogen measurement by automated test strip (mass/volume) NORMAL NORMAL Urine leukocyte esterase detection by dipstick 1+ NEGATIVE Automated urine sediment erythrocyte cou nt by microscopy (number/high power field) RARE NRG Automated urine sediment leukocyte count by microscopy (number/high power field) [HPF] NRG Bacteria detection in urine sediment by light microsco py MODERATE NRG Squamous epithelial cells detection in u rine sediment by light microscopy 2-5 NRG Crystals detection in urine sediment by light microsco py NONE NRG Casts detection in urine sediment by light microscopy NONE NRG Mucus detection in urine sediment by light microscopy NEGATIVE NRG Complete urinalysis with reflex to culture YES NRG Bacterial urine culture - 05/16/17 12:09 Bacterial urine culture [id number] NRG COLONY COUNT 10,000/ML - 100,000/ML NRG FTX;REPORTABLE SENSITIVITY NOT USUALLY PERFORMED F OR NRG URINE CULTURE RESULTS PLUS NRG FREE TEXT ENTRY 2 THIS ORGANISM. [facility] Bacterial susceptibility panel - 7 12:09 Gentamicin susceptibility test by minimum inhibitory c oncentration <= NRG Trimethoprim/sulfamethoxazole susceptibi lity test by minimum inhibitoryconcentration <= NRG Ampicillin susceptibility test by minimum inhibitory c oncentration <= NRG Tobramycin susceptibility test by minimum inhibitory c oncentration <= NRG Cefazolin susceptibility test by minimum inhibitory co ncentration <= NRG Ceftriaxone susceptibility test by minimum inhibitory concentration <= NRG Ampicillin/sulbactam susceptibility test by minimum inhibitory concentration <= NRG Piperacillin/tazobactam susceptibility t est by minimum inhibitory concentration <= NRG Ciprofloxacin susceptibility test by minimum inhibitor y concentration <= NRG Meropenem susceptibility test by minimum inhibitory co ncentration <= NRG Nitrofurantoin susceptibility test by mi nimum inhibitory concentration 32 NRG Aztreonam susceptibility test by minimum inhibitory co ncentration <= NRG Extended spectrum beta lactamase (ESBL) producing bacteria susceptibility test by minimum inhibitory concentration - NRG Complete blood count (CBC) with automate d white blood cell (WBC) differential - 05/16/17 12:10 Blood leukocytes automated count (number/volume) 5.6 10*3/uL 4.3-11.0 Blood erythrocytes automated count (number/volume) 4.32 10*6/uL 4.35-5.85 Venous blood hemoglobin measurement (mass/volume) 14.3 g/dL 11.5-16.0 Blood hematocrit (volume fraction) 41 % 35-52 Automated erythrocyte mean corpuscular volume 96 [ foz_us] 80-99 Automated erythrocyte mean corpuscular h emoglobin (mass per erythrocyte) 33 pg 25-34 Automated erythrocyte mean corpuscular h emoglobin concentration measurement (mass/volume) 35 g/dL 32-36 Automated erythrocyte distribution width ratio 12. 3 % 10.0- 14.5 Automated blood platelet count (count/volume) 204 10*3/uL [...] 10*3 1.0-4.0 Blood monocytes automated count (number/volume) 0. 4 10*3 0.0-1.0 Automated eosinophil count 0.2 10*3/uL 0 .0-0.3 Automated blood basophil count (count/volume) 0.1 10*3/uL 0.0-0.1 PT panel in platelet poor plasma by coag ulation assay - 05/16/17 12:10 Prothrombin time (PT) in platelet poor plasma by coagu lation assay 12.5 s 12.2-14.7 INR in platelet poor plasma or blood by coagulation as say 0.9 0.8-1.4 Comprehensive metabolic panel - 05/16/17 12:10 Serum or plasma sodium measurement (moles/volume) 140 mmol/L 135-145 Serum or plasma potassium measurement (moles/volume) 3.7 mmol/L 3.6-5.0 Serum or plasma chloride measurement (moles/volume) 105 mmol/L 98-107 Carbon dioxide 28 mmol/L 21-32 Serum or plasma anion gap determination (moles/volume) 7 mmol/L 5-14 Serum or plasma urea nitrogen measurement (mass/volume ) 19 mg/dL 7-18 Serum or plasma creatinine measurement (mass/volume) 0.81 mg/dL 0.60-1.30 Serum or plasma urea nitrogen/creatinine mass ratio 23 NRG Serum or plasma creatinine measurement w ith calculation of estimated glomerular filtration rate > NRG Serum or plasma glucose measurement (mass/volume) 100 mg/dL 70-105 Serum or plasma calcium measurement (mass/volume) 9.2 mg/dL 8.5-10.1 Serum or plasma total bilirubin measurement (mass/volu me) 0.6 mg/dL 0.1-1.0 Serum or plasma alkaline phosphatase leroy surement (enzymatic activity/volume) 64 U/L 40-136 Serum or plasma aspartate aminotransfera se measurement (enzymatic activity/volume) 15 U/L 5-34 Serum or plasma alanine aminotransferase measurement (enzymatic activity/volume) 13 U/L 0-55 Serum or plasma protein measurement (mass/volume) 7.1 g/dL 6.4-8.2 Serum or plasma albumin measurement (mass/volume) 4.0 g/dL 3.2-4.5 Erythrocyte sedimentation rate by héctor gren method - 05/16/17 12:10 Erythrocyte sedimentation rate by westergren method 7 mm 0- 30 Blood type T Indirect antibody screen [facility] 05/16/17 12:10 ABO+Rh group OP NRG Blood group antibody screen POSITIVE NR G Blood group antibodies identified - 05/03 12/17 12:10 Blood group antibodies identified E NRG Blood type T Indirect antibody screen [facility] 05/22/17 06:26 ABO+Rh group OP NRG Transfusion band number [id number] NRG Blood group antibody screen POSITIVE NR G Blood group antibodies identified - 05/04 06:26 Blood group antibodies identified E NRG Whole blood hemoglobin and hematocrit [facility] 05/23/17 05:45 Venous blood hemoglobin measurement (mass/volume) 12.2 g/dL 11.5-16.0 Blood hematocrit (volume fraction) 37 % 35-52 Whole blood basic metabolic panel - 05/04 09/18 05:45 Serum or plasma sodium measurement (moles/volume) 139 mmol/L 135-145 Serum or plasma potassium measurement (moles/volume) 3.4 mmol/L 3.6-5.0 Serum or plasma chloride measurement (moles/volume) 106 mmol/L 98-107 Carbon dioxide 24 mmol/L 21-32 Serum or plasma anion gap determination (moles/volume) 9 mmol/L 5-14 Serum or plasma urea nitrogen measurement (mass/volume ) 16 mg/dL 7-18 Serum or plasma creatinine measurement (mass/volume) 0.76 mg/dL 0.60-1.30 Serum or plasma urea nitrogen/creatinine mass ratio 21 NRG Serum or plasma creatinine measurement w ith calculation of estimated glomerular filtration rate > NRG Serum or plasma glucose measurement (mass/volume) 130 mg/dL 70-105 Serum or plasma calcium measurement (mass/volume) 8.1 mg/dL 8.5-10.1 Whole blood hemoglobin and hematocrit [facility] 05/24/17 05:02 Venous blood hemoglobin measurement (mass/volume) 11.5 g/dL 11.5-16.0 Blood hematocrit (volume fraction) 35 % 35-52 Complete urinalysis with reflex to cultu re - 05/24/17 11:45 Urine color determination YELLOW NRG Urine clarity determination CLEAR NR G Urine pH measurement by test strip 7 5-9 Specific gravity of urine by test strip 1.005 1.016-1.022 Urine protein assay by test strip, semi-quantitative NEGATIVE NEGATIVE Urine glucose detection by automated test strip NE GATIVE NEGATIVE Erythrocytes detection in urine sediment by light micr oscopy NEGATIVE NEGATIVE Urine ketones detection by automated test strip NE GATIVE NEGATIVE Urine nitrite detection by test strip NEGATIVE NEGATIVE Urine total bilirubin detection by test strip NEGA TIVE NEGATIVE Urine urobilinogen measurement by automated test strip (mass/volume) NORMAL NORMAL Urine leukocyte esterase detection by dipstick NEG ATIVE NEGATIVE Automated urine sediment erythrocyte cou nt by microscopy (number/high power field) RARE NRG Automated urine sediment leukocyte count by microscopy (number/high power field) [HPF] NRG Bacteria detection in urine sediment by light microsco py NEGATIVE NRG Squamous epithelial cells detection in u rine sediment by light microscopy >50 NRG Crystals detection in urine sediment by light microsco py NONE NRG Casts detection in urine sediment by light microscopy NONE NRG Mucus detection in urine sediment by light microscopy NEGATIVE NRG Complete urinalysis with reflex to culture NO NRG Renal epithelial cells detection in urin e sediment by light microscopy NONE NRG Whole blood hemoglobin and hematocrit pa danielle - 05/25/17 06:41 Venous blood hemoglobin measurement (mass/volume) 11.3 g/dL 11.5-16.0 Blood hematocrit (volume fraction) 33 % 35-52 Methicillin resistant Staphylococcus aur eus (MRSA) screening culture - 10/17/17 12:15 Methicillin resistant Staphylococcus aureus (MRSA) scr eening culture NEG NRG Complete blood count (CBC) with automate d white blood cell (WBC) differential - 10/17/17 12:20 Blood leukocytes automated count (number/volume) 6.4 10*3/uL 4.3-11.0 Blood erythrocytes automated count (number/volume) 4.14 10*6/uL 4.35-5.85 Venous blood hemoglobin measurement (mass/volume) 13.9 g/dL 11.5-16.0 Blood hematocrit (volume fraction) 39 % 35-52 Automated erythrocyte mean corpuscular volume 93 [ foz_us] 80-99 Automated erythrocyte mean corpuscular h emoglobin (mass per erythrocyte) 34 pg 25-34 Automated erythrocyte mean corpuscular h emoglobin concentration measurement (mass/volume) 36 g/dL 32-36 Automated erythrocyte distribution width ratio 12. 2 % 10.0- 14.5 Automated blood platelet count (count/volume) 218 10*3/uL 130-400 Automated blood platelet mean volume measurement 10.5 [foz_us] 7.4-10.4 Automated blood neutrophils/100 leukocytes 52 % 42-75 Automated blood lymphocytes/100 leukocytes 38 % 12-44 Blood monocytes/100 leukocytes 6 % 0-12 Automated blood eosinophils/100 leukocytes 2 % 0-10 Automated blood basophils/100 leukocytes 1 % 0-10 Blood neutrophils automated count (number/volume) 3.3 10*3 1.8-7.8 Blood lymphocytes automated count (number/volume) 2.5 10*3 1.0-4.0 Blood monocytes automated count (number/volume) 0. 4 10*3 0.0-1.0 Automated eosinophil count 0.1 10*3/uL 0 .0-0.3 Automated blood basophil count (count/volume) 0.1 10*3/uL 0.0-0.1 Comprehensive metabolic panel - 10/17/17 12:20 Serum or plasma sodium measurement (moles/volume) 141 mmol/L 135-145 Serum or plasma potassium measurement (moles/volume) 3.9 mmol/L 3.6-5.0 Serum or plasma chloride measurement (moles/volume) 106 mmol/L 98-107 Carbon dioxide 23 mmol/L 21-32 Serum or plasma anion gap determination (moles/volume) 12 mmol/L 5-14 Serum or plasma urea nitrogen measurement (mass/volume ) 22 mg/dL 7-18 Serum or plasma creatinine measurement (mass/volume) 0.72 mg/dL 0.60-1.30 Serum or plasma urea nitrogen/creatinine mass ratio 31 NRG Serum or plasma creatinine measurement w ith calculation of estimated glomerular filtration rate > NRG Serum or plasma glucose measurement (mass/volume) 84 mg/dL 70-105 Serum or plasma calcium measurement (mass/volume) 9.0 mg/dL 8.5-10.1 Serum or plasma total bilirubin measurement (mass/volu me) 0.6 mg/dL 0.1-1.0 Serum or plasma alkaline phosphatase leroy surement (enzymatic activity/volume) 66 U/L 40-136 Serum or plasma aspartate aminotransfera se measurement (enzymatic activity/volume) 13 U/L 5-34 Serum or plasma alanine aminotransferase measurement (enzymatic activity/volume) 9 U/L 0-55 Serum or plasma protein measurement (mass/volume) 7.1 g/dL 6.4-8.2 Serum or plasma albumin measurement (mass/volume) 3.8 g/dL 3.2-4.5 PT panel in platelet poor plasma by coag ulation assay - 10/17/17 12:20 Prothrombin time (PT) in platelet poor plasma by coagu lation assay 12.8 s 12.2-14.7 INR in platelet poor plasma or blood by coagulation as say 1.0 0.8-1.4 Erythrocyte sedimentation rate by héctor gren method - 10/17/17 12:20 Erythrocyte sedimentation rate by westergren method 14 mm 0- 30 Blood type T Indirect antibody screen pa danielle - 10/17/17 12:20 ABO+Rh group OP NRG Transfusion band number TNP NRG Blood group antibody screen POSITIVE NR G Blood group antibodies identified - 10/03 01/17 12:20 Blood group antibodies identified E NRG E Ag - 10/17/17 12:20 E Ag E NRG Complete urinalysis with reflex to cultu re - 10/17/17 12:22 Urine color determination YELLOW NRG Urine clarity determination CLEAR NR G Urine pH measurement by test strip 7 5-9 Specific gravity of urine by test strip 1.015 1.016-1.022 Urine protein assay by test strip, semi-quantitative NEGATIVE NEGATIVE Urine glucose detection by automated test strip NE GATIVE NEGATIVE Erythrocytes detection in urine sediment by light micr oscopy NEGATIVE NEGATIVE Urine ketones detection by automated test strip NE GATIVE NEGATIVE Urine nitrite detection by test strip NEGATIVE NEGATIVE Urine total bilirubin detection by test strip NEGA TIVE NEGATIVE Urine urobilinogen measurement by automated test strip (mass/volume) NORMAL NORMAL Urine leukocyte esterase detection by dipstick 1+ NEGATIVE Automated urine sediment erythrocyte cou nt by microscopy (number/high power field) NONE NRG Automated urine sediment leukocyte count by microscopy (number/high power field) RARE NRG Bacteria detection in urine sediment by light microsco py NEGATIVE NRG Squamous epithelial cells detection in u rine sediment by light microscopy 5-10 NRG Crystals detection in urine sediment by light microsco py NONE NRG Casts detection in urine sediment by light microscopy NONE NRG Mucus detection in urine sediment by light microscopy NEGATIVE NRG Complete urinalysis with reflex to culture NO NRG Blood type T Indirect antibody screen [facility] - 10/23/17 06:15 ABO+Rh group OP NRG Transfusion band number [id number] NRG Blood group antibody screen POSITIVE NR G Blood group antibodies identified - 10/04 09/19 06:15 Blood group antibodies identified E NRG Whole blood hemoglobin and hematocrit [facility] 10/24/17 06:00 Venous blood hemoglobin measurement (mass/volume) 11.8 g/dL 11.5-16.0 Blood hematocrit (volume fraction) 35 % 35-52 Whole blood hemoglobin and hematocrit [facility] 10/25/17 05:45 Venous blood hemoglobin measurement (mass/volume) 10.2 g/dL 11.5-16.0 Blood hematocrit (volume fraction) 30 % 35-52 Whole blood hemoglobin and hematocrit [facility] 10/26/17 05:30 Venous blood hemoglobin measurement (mass/volume) 10.0 g/dL 11.5-16.0 Blood hematocrit (volume fraction) 29 % 35-52 Complete blood count (CBC) with automate d white blood cell (WBC) differential - 11/26/18 18:36 Blood leukocytes automated count (number/volume) 6.5 10*3/uL 4.3-11.0 Blood erythrocytes automated count (number/volume) 4.37 10*6/uL 4.35-5.85 Venous blood hemoglobin measurement (mass/volume) 14.3 g/dL 11.5-16.0 Blood hematocrit (volume fraction) 42 % 35-52 Automated erythrocyte mean corpuscular volume 95 [ foz_us] 80-99 Automated erythrocyte mean corpuscular h emoglobin (mass per erythrocyte) 33 pg 25-34 Automated erythrocyte mean corpuscular h emoglobin concentration measurement (mass/volume) 35 g/dL 32-36 Automated erythrocyte distribution width ratio 12. 7 % 10.0- 14.5 Automated blood platelet count (count/volume) 166 10*3/uL 130-400 Automated blood platelet mean volume measurement 10.5 [foz_us] 7.4-10.4 Automated blood neutrophils/100 leukocytes 45 % 42-75 Automated blood lymphocytes/100 leukocytes 41 % 12-44 Blood monocytes/100 leukocytes 7 % 0-12 Automated blood eosinophils/100 leukocytes 6 % 0-10 Automated blood basophils/100 leukocytes 1 % 0-10 Blood neutrophils automated count (number/volume) 2.9 10*3 1.8-7.8 Blood lymphocytes automated count (number/volume) 2.6 10*3 1.0-4.0 Blood monocytes automated count (number/volume) 0. 5 10*3 0.0-1.0 Automated eosinophil count 0.4 10*3/uL 0 .0-0.3 Automated blood basophil count (count/volume) 0.1 10*3/uL 0.0-0.1 Comprehensive metabolic panel - 11/26/18 18:36 Serum or plasma sodium measurement (moles/volume) 140 mmol/L 135-145 Serum or plasma potassium measurement (moles/volume) 4.1 mmol/L 3.6-5.0 Serum or plasma chloride measurement (moles/volume) 104 mmol/L 98-107 Carbon dioxide 24 mmol/L 21-32 Serum or plasma anion gap determination (moles/volume) 12 mmol/L 5-14 Serum or plasma urea nitrogen measurement (mass/volume ) 24 mg/dL 7-18 Serum or plasma creatinine measurement (mass/volume) 0.82 mg/dL 0.60-1.30 Serum or plasma urea nitrogen/creatinine mass ratio 29 NRG Serum or plasma creatinine measurement w ith calculation of estimated glomerular filtration rate > NRG Serum or plasma glucose measurement (mass/volume) 83 mg/dL 70-105 Serum or plasma calcium measurement (mass/volume) 9.2 mg/dL 8.5-10.1 Serum or plasma total bilirubin measurement (mass/volu me) 0.5 mg/dL 0.1-1.0 Serum or plasma alkaline phosphatase leroy surement (enzymatic activity/volume) 72 U/L 40-136 Serum or plasma aspartate aminotransfera se measurement (enzymatic activity/volume) 17 U/L 5-34 Serum or plasma alanine aminotransferase measurement (enzymatic activity/volume) 14 U/L 0-55 Serum or plasma protein measurement (mass/volume) 7.5 g/dL 6.4-8.2 Serum or plasma albumin measurement (mass/volume) 4.2 g/dL 3.2-4.5 CALCIUM CORRECTED 9.0 mg/dL 8.5-10.1 Fibrin D-dimer FEU measurement in platel et poor plasma (mass/volume) - 11/26/18 18:36 Fibrin D-dimer FEU measurement in platelet poor plasma (mass/volume) 0.43 ug/mL 0.00-0.49 SUREPATH PAP RFX HPV mRNA E6/E7 - 11:12 CLINICAL INFORMATION: NRG LMP: NRG PREV. PAP: NRG PREV. BX: CX NRG SOURCE: Cervix NRG STATEMENT OF ADEQUACY: NRG INTERPRETATION/RESULT: NRG TOEING STOCKINGS: NRG COMMENT NRG Complete blood count (CBC) with automate d white blood cell (WBC) differential - 10/21/19 14:16 Blood leukocytes automated count (number/volume) 7.4 10*3/uL 4.3-11.0 Blood erythrocytes automated count (number/volume) 4.50 10*6/uL 4.35-5.85 Venous blood hemoglobin measurement (mass/volume) 14.2 g/dL 11.5-16.0 Blood hematocrit (volume fraction) 43 % 35-52 Automated erythrocyte mean corpuscular volume 94 [ foz_us] 80-99 Automated erythrocyte mean corpuscular h emoglobin (mass per erythrocyte) 32 pg 25-34 Automated erythrocyte mean corpuscular h emoglobin concentration measurement (mass/volume) 33 g/dL 32-36 Automated erythrocyte distribution width ratio 12. 8 % 10.0- 14.5 Automated blood platelet count (count/volume) 222 10*3/uL 130-400 Automated blood platelet mean volume measurement 10.6 [foz_us] 7.4-10.4 Automated blood neutrophils/100 leukocytes 55 % 42-75 Automated blood lymphocytes/100 leukocytes 33 % 12-44 Blood monocytes/100 leukocytes 7 % 0-12 Automated blood eosinophils/100 leukocytes 4 % 0-10 Automated blood basophils/100 leukocytes 1 % 0-10 Blood neutrophils automated count (number/volume) 4.1 10*3 1.8-7.8 Blood lymphocytes automated count (number/volume) 2.5 10*3 1.0-4.0 Blood monocytes automated count (number/volume) 0. 5 10*3 0.0-1.0 Automated eosinophil count 0.3 10*3/uL 0 .0-0.3 Automated blood basophil count (count/volume) 0.1 10*3/uL 0.0-0.1 Comprehensive metabolic panel - 10/21/19 14:16 Serum or plasma sodium measurement (moles/volume) 138 mmol/L 135-145 Serum or plasma potassium measurement (moles/volume) 4.1 mmol/L 3.6-5.0 Serum or plasma chloride measurement (moles/volume) 105 mmol/L 98-107 Carbon dioxide 21 mmol/L 21-32 Serum or plasma anion gap determination (moles/volume) 12 mmol/L 5-14 Serum or plasma urea nitrogen measurement (mass/volume ) 23 mg/dL 7-18 Serum or plasma creatinine measurement (mass/volume) 0.77 mg/dL 0.60-1.30 Serum or plasma urea nitrogen/creatinine mass ratio 30 NRG Serum or plasma creatinine measurement w ith calculation of estimated glomerular filtration rate > NRG Serum or plasma glucose measurement (mass/volume) 94 mg/dL 70-105 Serum or plasma calcium measurement (mass/volume) 9.5 mg/dL 8.5-10.1 Serum or plasma total bilirubin measurement (mass/volu me) 0.5 mg/dL 0.1-1.0 Serum or plasma alkaline phosphatase leroy surement (enzymatic activity/volume) 82 U/L 40-136 Serum or plasma aspartate aminotransfera se measurement (enzymatic activity/volume) 17 U/L 5-34 Serum or plasma alanine aminotransferase measurement (enzymatic activity/volume) 17 U/L 0-55 Serum or plasma protein measurement (mass/volume) 7.4 g/dL 6.4-8.2 Serum or plasma albumin measurement (mass/volume) 4.2 g/dL 3.2-4.5 CALCIUM CORRECTED 9.3 mg/dL 8.5-10.1 Serum or plasma troponin i.cardiac measu rement (mass/volume) - 10/21/19 14:16 Serum or plasma troponin i.cardiac measurement (mass/v olume) < ng/mL <0.028 THYROID STIMULATING HORMONE - 10/21/19 1 4:16 THYROID STIMULATING HORMONE 0.47 u[iU]/mL 0.35-4.94 Coronavirus SARS-CoV-2 SO 2018 - 0 13:00 Coronavirus Ab [Units/volume] in Serum Negative Negative Encounters ACCT No. Visit Date/Time Discharge Status Pt. Type Provider Facility Loc./Unit Complaint [id number] 08/21/2019 10:00:00 08/21/2019 23:59: 59 CLS Outpatient [facility] YON FERRIS [id number] 08/10/2019 10:15:00 Document Registration [id number] 01/22/2020 08:48:00 14:43:00 DIS Outpatient SHAWN GODDARD MD [facility] PREOP URGENCY WITH INCONTINEN CE [id number] 10/21/2019 13:34:00 23:59:59 CLS Outpatient PIOTR TAPIA APRN [facility] RAD LEFT SHOULDER PAIN [id number] 08/19/2019 15:43:00 12:30:00 DIS Outpatient NIALL MONTES DO [facility] REHAB CHRONIC PAIN SY NDROME; LBP [id number] 06/12/2019 00:12:00 23:59:59 CLS Preadmit ANDREW MARCUM MD [facility] ONC [id number] 06/11/2019 13:51:00 23:59:59 CLS Outpatient SATURNINO LEWIS [facility] RAD DEGENERATION OF LUMBAR INTERVERTEBRAL DISC [id number] 03/13/2019 13:34:00 00:01:00 DIS Outpatient ANDREW MARCUM MD, V [facility] ONC [id number] 11/27/2018 10:17:00 23:59:59 CLS Outpatient PAM GUAN [facility] RAD RT LOWER LEG PA IN [id number] 11/26/2018 17:39:00 19:45:00 DIS Emergency LUIS EDUARDO PAREDES, TALITA Luo [facility] ER LEG PAIN,DIZZY [id number] 12/26/2017 11:01:00 14:27:00 DIS Outpatient NIALL WEBER MD [facility] REHAB S/P TKA LEFT [id number] 10/23/2017 05:59:00 18:04:00 DIS Inpatient NIALL WEBER MD [facility] 4TH PRIMARY OSTEOARTHRITIS [id number] 10/17/2017 11:56:00 018 12:35:00 DIS Outpatient NIALL WEBER MD [facility] PREOP PRIMARY OSTEOARTHRITIS [id number] 08/23/2017 13:58:00 017 15:19:00 DIS Outpatient NIALL WEBER MD [facility] REHAB TOTAL KNEE ARTHROPLAST Y; LEFT [id number] 05/22/2017 06:00:00 017 15:00:00 DIS Inpatient NIALL WEBER MD [facility] 4TH LEFT KNEE OSTEOARTHRITI S [id number] 05/16/2017 11:37:00 017 12:30:00 DIS Outpatient NIALL WEBER MD [facility] PREOP LEFT KNEE OSTEOARTHRIT IS [id number] 04/08/2017 14:39:00 017 23:59:59 CLS Outpatient PAM GUAN [facility] LAB PRE SURGICAL CL EARANCE [id number] 01/29/2017 18:09:00 017 21:18:00 DIS Emergency GABE MOCK APRN [facility] ER L KNEE WEAKNESS/PAIN [id number] 04/12/2014 16:51:00 014 23:59:59 CLS Outpatient [id number] 01/26/2020 09:00:00 P EN Preadmit NITZA PAREDES, SHAWN Peck [facility] SDC URGENCY WITH INCONTINENCE [id number] 05/30/2017 12:45:54 05/30/2017 23:59:5 9 CLS Outpatient
--- OUTSIDE RECORDS SUMMARY | 2020-01-26 07:01 | XMS REPORT | CCD ---
Author Author Shannan Lindquist Organization Aisha Henson MD, [facility] Address [address] [place] [address] Phone Care Team Providers Care Stretching Machine Tender Frame Name Role Phone PP Unavailable CCM Unavailable Summary Purpose Interface Exchange Insurance Providers Payer name Policy type / Coverage type Covered libertarian ID Effective Begin Date Effective End Date Blue Cross Blue Shield [facility] e Cross/Blue Shield [id number] 2017 Un known Family history Son Diagnosis Age At Onset Asthma Unknown Mother Diagnosis Age At Onset Osteoporosis Unknown Arthritis Unknown Father Diagnosis Age At Onset Cancer Unknown Social History Social History Element Codes Description Effective Dates Marital status Unknown S hellen 04/08/2017 Number of children Unknown 2 04/08/2017 Employment Unknown Retir ed 04/08/[address]: 393200430 Never smoker 04/08/[address]: 509379761 Never drinks alcohol 04/08/2017 Has the patient [...] Date Stop Date Sta tus Fill Instructions Lovenox 40 mg/0.4 mL subcutaneous syringe RxNorm: 503524 1 injection SQ daily the day before, day of and day after flight 01/20/2019 01/25/2019 Inactive prednisone 20 mg tablet RxNorm: 651063 2 Tablet(s) PO daily 01/20/2019 01/29/2019 Active metoprolol tartrate 25 mg tablet RxNorm: 221270 1/2 Tablet(s) PO BID 01/20/2019 05/19/2019 Active Lovenox 40 mg/0.4 mL subcutaneous syringe RxNorm: 093525 1 injection SQ Q12H 09/30/2017 10/15/2017 In active Lovenox 40 mg/0.4 mL subcutaneous syringe RxNorm: 958947 1 Milliliter(s) SQ Q1 2H 05/09/2017 05/15/2017 In active Lovenox 40 mg/0.4 mL subcutaneous syringe RxNorm: 952001 1 Milliliter(s) SQ Q1 2H 05/09/2017 05/08/2017 In active oxybutynin chloride 5 mg tablet RxNorm: 873124 1 Tablet(s) PO daily No Start Date Active aspirin 81 mg tablet ,delayed release RxNorm: 235722 1 Tablet(s) PO daily No Start Date Active naproxen 500 mg tablet RxNorm: 021382 1 Tablet(s) PO daily No Start Date Active pantoprazole oral RxNorm: 42943 oral No Start Date Active oxybutynin chloride oral RxNorm: [address] art Date 05/29/2017 Inactive Medication Administered No Medication [...] 1: 154/86 Code: 8480-6 BMI: 36.6 Code: 69032-5 Heart Rate 1: 89 bpm Height: 5'6" SpO2: 97% Weight: 227 lbs 09/30/2017 Blood Pressure 1: 138/88 Code: 8480-6 BMI: 34.7 Code: 03296-1 Heart Rate 1: 73 bpm Height: 5'6" SpO2: 98% Weight: 215 lbs 05/30/2017 Blood Pressure 1: 134/82 Code: 8480-6 BMI: 35.2 Code: 49695-0 Heart Rate 1: 101 bpm Height: 5'6" SpO2: 97% Weight: 218 lbs 04/08/2017 Blood Pressure 1: 136/84 Code: 8480-6 BMI: 35.5 Code: 28897-0 Heart Rate 1: 86 bpm Height: 5'6" SpO2: 97% Weight: 220 lbs Functional Status No Functional Status data History of Present Illness Symptom Name Status Resu lt Effective Date Notes Pertinent Findings jason etienneness 01/20/2019 off and on Blood Pressure Values [...] Encounters Encounter Performer Loca tion Codes Date (71596) PREV VISIT E ST AGE 40-64 Diagnosis: Encounter for general adult medical examination with abnormal findings[ICD10: Z00.01] [facility] CPT-4: 25826 01/20/2019 ([id number]) PREV VISIT E ST AGE 40-64 Diagnosis: 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 PATIENT, LEVEL IV Diagnosis: Bilateral primary osteoarthritis of knee[ICD10: M17.0] Diagnosis: Urge incontinence[ICD10: N39.41] Diagnosis: Activated protein C resistance[ICD10: D68.51] [facility] CPT-4: 57893 05/30/2017 (73991) Miscellaneou s no charge Diagnosis: Personal history of other venous thrombosis and embolism[ICD10: Z86.718] [facility] CPT-4: 70863 05/15/2017 OFFICE VISIT, NEW - LEVEL 3 Diagnosis: Bilateral primary osteoarthritis of knee[ICD10: M17.0] Diagnosis: Personal history of other venous thrombosis and embolism[ICD10: Z86.718] [facility] CPT-4: 62514 04/08/2017 Plan of Care Planned Activity Notes [...] [facility] [place] (15 min) Moderate 01/20/2019 Patient Education: [...] Henson WPtel: [facility] [place] (15 min) Moderate 09/30/2017 Patient Education: Patient Medication Summary Completed 09/30/2017 Care Plan: Referral Order SNOMED-CT : 223279401 Pending 09/30/2017 Visit Plan: DJD left knee-p/o total knee replacement by Dr Johnson-doing well-bere to be removed next week Factor V Leiden-continue xarelto x 2 weeks as DVT prophylaxis Urge incontinence-continue oxybutynin 05/30/2017 Appointment: [facility] [address] [facility] (30 min) Complex 05/30/2017 Patient Education: Patient [...] available. 04/08/2017 Appointment: Pam [facility]quist [facility]el[facility] [address] [facility] New Patient 04/08/2017 Patient Education: Patient [...]
--- NOTE | 2020-01-26 07:05 | Progress Note-Pre Operative ---
Pre-Operative Progress Note H&P Reviewed The H&P was reviewed, patient examined and no changes noted. Date Seen by Provider: January 26, 2020 Time Seen by Provider: 07:05 Date H&P Reviewed: January 26, 2020 Time H&P Reviewed: 07:05 Pre-Operative Diagnosis: SEVERE URGENCY WITH INCONTINENCE AND OAB SHAWN GODDARD MD January 26, 2020 07:05
--- NOTE | 2020-01-26 07:12 | Progress Note-Post Operative ---
Post-Operative Progess Note Surgeon (s)/Comic Artist (s) Surgeon SHAWN GODDARD MD Comic Artist: NONE Pre-Operative Diagnosis SEVERE URGENCY WITH INCONTINENCE AND OAB Post-Operative Diagnosis SAME Procedure & Operative Findings Date of Procedure 01/26/20 Procedure Performed/Findings INTRAVESICAL BOTOX INJECTION Anesthesia Type GENERAL Estimated Blood Loss Estimated blood loss (mL): NEGLIGIBLE Specimens/Packing Specimens Removed NONE Packing: NONE SHAWN GODDARD MD January 26, 2020 07:12
[2020-01-26] MEDS ORDERED: cefTRIAXone FOR IV USE 1,000 MG in WATER (STERILE) FOR INJECTION 10 ML IV ONE (07:15)
--- NOTE | 2020-01-26 07:15 | Discharge Inst-Urology ---
Discharge Inst-Urology Reconcile Patient Problems Problems Reviewed?: Yes Final Diagnosis SEVERE URGENCY WITH INCONTINENCE AND OAB Patient Instructions/Follow Up Plan/Assessment/Instructions Please make appointment to been seen in office in 4 weeks. Showers, no bath Keep bowels soft and moving In 48 hours, if no bleeding, may resume ASA Stay off any bladder medicine Increase oral fluids for 48 hours and then as needed. Diet and Activity as tolerated. If questions or concerns contact your physician Or seek help at emergency department. SHAWN GODDARD MD January 26, 2020 07:15
[2020-01-26] MEDS: LACTATED RINGERS 1,000 ML IV PRN ×2 (07:43→09:05)
[2020-01-26] MEDS ORDERED: ONABOTULINUMTOXINA 100 UNIT (BOTOX) VIAL INJ ONE (07:45)
[2020-01-26] MEDS ORDERED: fentaNYL INJECTION 100 MCG/2 ML AMP ONE (08:03)
[2020-01-26] MEDS ORDERED: proPOfol 200 MG/20 ML (DIPRIVAN) VIAL IV ONE (08:05)
[2020-01-26] MEDS ORDERED: LIDOCAINE PF 2% 5 ML (XYLOCAINE) VIAL ONE (08:05)
[2020-01-26] MEDS ORDERED: 0.9% SODIUM CHLORIDE PF INJ 20 ML VIAL ONE (08:14)
--- NOTE | 2020-01-26 09:18 | Anesthesia-General Post-Op ---
General Patient Condition Mental Status/LOC: Same as Preop Cardiovascular: Satisfactory Nausea/Vomiting: Absent Respiratory: Satisfactory Pain: Controlled Complications: Absent Post Op Complications Complications None Follow Up Care/Instructions Patient Instructions None needed. Anesthesia/Patient Condition Patient Condition Patient is doing well, no complaints, stable vital signs, no apparent adverse anesthesia problems. No complications reported per nursing. SUE BRANCH CRNA January 26, 2020 09:18
[2020-01-26] MEDS ORDERED: MEPERIDINE (DEMEROL) INJ 50 MG/ML IVP ONE (09:30)
[2020-01-26] MEDS ORDERED: ONDANSETRON 4 MG/2 ML (SDV) Z0FRAN IVP PRN (09:30)
[2020-01-26] MEDS ORDERED: morphine INJ 10 MG/ML 1ML (SYR OR VIAL) IVP ONE (09:30)
[2020-01-26] MEDS ORDERED: NITR-65 PO (10:28)
[2020-01-26] MEDS ORDERED: PHEN-640 PO (10:28)
--- NOTE | 2020-01-26 11:00 | NUR ---
HAS BEEN ALERT AND HAS DENIED COMPLAINTS THROUGHOUT RECOVERY. TAKING PO FLUIDS WITHOUT PROBLEM. DENIES FEELING OF NEEDING TO URINATE. WRITTEN PRESCRIPTIONS FOR MACROBID AND PYRIDIUM CALLED TO [email or web address] PER PT REQUEST. STATES SHE IS READY FOR DISMISSAL.
--- NOTE | 2020-01-26 18:00 | OPERATIVE REPORT ---
DATE OF SERVICE: 01/26/2020 PREOPERATIVE DIAGNOSIS: Severe urgency with incontinence and overactive bladder. POSTOPERATIVE DIAGNOSIS: Severe urgency with incontinence and overactive bladder. OPERATION PERFORMED: Intravesical injection of Botox. SURGEON: Christiano Goddard MD. ANESTHESIA: General. COMPLICATIONS: None. DESCRIPTION OF PROCEDURE: Under satisfactory general anesthesia, the patient in lithotomy position, genitalia were prepped and draped in the usual sterile fashion. Cystoscope was introduced in the bladder, which was half filled using the Laborie needle set at 3. I injected the Botox starting above and lateral to the left ureteral orifice working my way towards the right side and starting above it. 20 sites were injected, 0.5 mL for a total of 100 unit. There was minimal bleeding. Bladder was evacuated. The patient tolerated the procedure and anesthesia well and was sent to recovery room in stable condition. Job ID: [id number] DocumentID: [id number] Dictated Date: 01/26/2020 09:25:30 Experimental Mechanic Date: 01/26/2020 17:59:25 Dictated By: CHRISTIANO GODDARD MD
== END 2020-01-26 11:00 | disposition home or self-care (01) ==
LOC: SDC 06:54
PROVIDERS: ATTEND Urology
DX: N39.41 Urge incontinence (principal); N32.81 Overactive bladder; R35.1 Nocturia; I10 Essential (primary) hypertension; I82.409 Acute embolism and thrombosis of unspecified deep veins of unspecified lower extremity; K21.9 Gastro-esophageal reflux disease without esophagitis; E66.9 Obesity, unspecified; Z68.36 Body mass index [BMI] 36.0-36.9, adult; Z79.82 Long term (current) use of aspirin; Z79.899 Other long term (current) drug therapy; Z90.710 Acquired absence of both cervix and uterus
CPT/HCPCS: 87081

== ENCOUNTER 2021-02-13 05:33 | Outpatient (CLI) | payer MEDICARE ==
[~2021-02-13] VITALS: Ht 167.6 cm; Wt 109.1 kg
[~2021-02-13 05:33] MED LIST changes: +NITR-65 PO; -OXYC-471 PO; +OXYC1TAB11 PO; -PANT40TA3 PO; +PANT40TA52 PO; +PHEN-640 PO
[2021-02-13] MEDS ORDERED: ASPI-1238 PO (10:14)
== END 2021-02-13 12:07 | disposition home or self-care (01) ==
LOC: PREOP 05:33
PROVIDERS: ATTEND Urology
DX: Z01.818 Encounter for other preprocedural examination (principal)

== ENCOUNTER 2021-02-15 07:01 | Day surgery (SDC) | payer MEDICARE ==
[~2021-02-15] VITALS: Ht 167.6 cm; Wt 109.1 kg
[2021-02-15] VITALS (9 sets, daily range): BP systolic 125–162; BP diastolic 71–92
[~2021-02-15 07:01] MED LIST changes: +ASPI-1238 PO
[2021-02-15] MEDS ORDERED: 0.9% SODIUM CHLORIDE PF INJ 20 ML VIAL IJ ONE (07:02)
--- NOTE | 2021-02-15 07:04 | Progress Note-Pre Operative ---
Pre-Operative Progress Note H&P Reviewed The H&P was reviewed, patient examined and no changes noted. Date Seen by Provider: Feb 15, 2021 Time Seen by Provider: 07:04 Date H&P Reviewed: Feb 15, 2021 Time H&P Reviewed: 07:04 Pre-Operative Diagnosis: SEVERE URGENCY AND OAB REFRACTORY TO MEDICAL TREATMENT SHAWN GODDARD MD Feb 15, 2021 07:04
--- NOTE | 2021-02-15 07:05 | Progress Note-Post Operative ---
Post-Operative Progess Note Surgeon (s)/Metal Template Maker (s) Surgeon SHAWN GODDARD MD Metal Template Maker: NONE Pre-Operative Diagnosis SEVERE URGENCY AND OAB REFRACTORY TO MEDICAL TREATMENT Post-Operative Diagnosis SAME Procedure & Operative Findings Date of Procedure 02/15/21 Procedure Performed/Findings BOTOX ENDOSCOPIC INJECTIONS Anesthesia Type GENERAL Estimated Blood Loss Estimated blood loss (mL): NEGLIGIBLE Specimens/Packing Specimens Removed NONE Packing: NONE SHAWN GODDARD MD Feb 15, 2021 07:05
[2021-02-15] MEDS ORDERED: ONDANSETRON 4 MG/2 ML (SDV) Z0FRAN ONE (07:06)
[2021-02-15] MEDS ORDERED: LIDOCAINE PF 2% 5 ML (XYLOCAINE) VIAL ONE (07:06)
[2021-02-15] MEDS ORDERED: MIDAZOLAM 2 MG/2 ML (VERSED) VIAL ONE (07:06)
[2021-02-15] MEDS ORDERED: fentaNYL INJ 100 MCG/2 ML AMP ONE (07:06)
[2021-02-15] MEDS ORDERED: proPOfol 200 MG/20 ML (DIPRIVAN) VIAL IV ONE (07:06)
--- NOTE | 2021-02-15 07:07 | Discharge Inst-Urology ---
Discharge Inst-Urology Reconcile Patient Problems Problems Reviewed?: Yes Final Diagnosis SEVERE URGENCY AND OAB REFRACTORY TO MEDICAL TREATMENT Patient Instructions/Follow Up Plan/Assessment/Instructions Please make appointment to been seen in office in 4 weeks. In 48 hours, if no bleeding, may resume ASA Increase oral fluids for 48 hours and then as needed. Diet and Activity as tolerated. If questions or concerns contact your physician Or seek help at emergency department. SHAWN GODDARD MD Feb 15, 2021 07:07
[2021-02-15] MEDS ORDERED: ONABOTULINUMTOXINA 100 UNIT (BOTOX) VIAL INJ NR (07:45)
[2021-02-15] MEDS ORDERED: cefTRIAXone 1,000 MG in WATER (STERILE) FOR INJECTION 10 ML IV ONE (07:45)
[2021-02-15] MEDS ORDERED: LACTATED RINGERS 1,000 ML IV PRN (07:45)
[2021-02-15] MEDS ORDERED: SEVOFLURANE (ULTANE) 15 ML INHAL SOLN ONE (07:53)
[2021-02-15] MEDS ORDERED: GLYCOPYRROLATE 0.2 MG/ML (ROBINUL) 2 ML VIAL ONE (08:06)
[2021-02-15] MEDS ORDERED: PHENYLEPHRINE 100 MCG/ML 10 ML (ANESTHESIA) SYR ONE (08:06)
[2021-02-15] MEDS ORDERED: NITR-65 PO (08:09)
[2021-02-15] MEDS ORDERED: PHEN-639 PO (08:09)
[2021-02-15] MEDS ORDERED: morphine INJ 10 MG/ML 1ML (SYR OR VIAL) IVP ONE (08:45)
[2021-02-15] MEDS ORDERED: ONDANSETRON 4 MG/2 ML (SDV) Z0FRAN IVP PRN (08:45)
--- NOTE | 2021-02-15 10:06 | Anesthesia-General Post-Op ---
General Patient Condition Mental Status/LOC: Same as Preop Cardiovascular: Satisfactory Nausea/Vomiting: Absent Respiratory: Satisfactory Pain: Controlled Complications: Absent Post Op Complications Complications None Follow Up Care/Instructions Patient Instructions None needed. Anesthesia/Patient Condition Patient Condition Patient was seen this morning after the procedure and she was doing well, no complaints, stable vital signs, no apparent adverse anesthesia problems. HARINDER HOOPER 16, 2021 10:06
--- NOTE | 2021-03-03 13:33 | OPERATIVE REPORT ---
DATE OF SERVICE: 02/15/2021 PREOPERATIVE DIAGNOSES: Severe urgency, refractory to medical treatment with overactive bladder and incontinence. POSTOPERATIVE DIAGNOSES: Severe urgency, refractory to medical treatment with overactive bladder and incontinence. OPERATION PERFORMED: Cystoscopic injection of Botox. SURGEON: Christiano Goddard MD ANESTHESIA: General. COMPLICATIONS: None. DESCRIPTION OF PROCEDURE: Under satisfactory general anesthesia, the patient in lithotomy position, genitalia were prepped and draped in the usual sterile fashion. Cystoscope was introduced under vision and injection of Botox was performed in 20 different points using the described technique. A 0.5 mL at that time was a total of 100 units of Botox injected. There was very minimal bleeding. The bladder was half full and performed a Valsalva maneuver after removing the cystoscope and it was negative. I emptied the bladder and patient tolerated the procedure and anesthesia well and was sent to recovery room in stable condition. Job ID: [id number] DocumentID: [id number] Dictated Date: 03/03/2021 09:06:47 Online Services Manager Date: 03/03/2021 13:32:16 Dictated By: CHRISTIANO GODDARD MD
== END 2021-02-15 10:08 | disposition home or self-care (01) ==
LOC: SDC 07:01
PROVIDERS: ATTEND Urology
DX: N39.41 Urge incontinence (principal); N32.81 Overactive bladder; I10 Essential (primary) hypertension; K21.9 Gastro-esophageal reflux disease without esophagitis; I82.409 Acute embolism and thrombosis of unspecified deep veins of unspecified lower extremity; Z20.822 Contact with and (suspected) exposure to COVID-19; Z79.82 Long term (current) use of aspirin; Z79.899 Other long term (current) drug therapy
CPT/HCPCS: 87081

== ENCOUNTER 2021-03-20 09:07 | Outpatient (CLI) | payer MEDICARE ==
[~2021-03-20] VITALS: Ht 167.7 cm; Wt 109.9 kg
[~2021-03-20 09:07] MED LIST changes: +PHEN-639 PO
[2021-03-20] MEDS ORDERED: ASPI-999 PO (09:17)
[2021-03-20] MEDS ORDERED: LOSA25TA41 PO (09:17)
[2021-03-20 09:55] LABS: BASOPHILS # (AUTO) 0.1 10^3/uL (0.0-0.1); BASOPHILS % (AUTO) 1 % (0-10); EOSINOPHILS # (AUTO) 0.5 10^3/uL (0.0-0.3); EOSINOPHILS % (AUTO) 9 % (0-10); HEMATOCRIT 37 % (35-52); LYMPHOCYTES % (AUTO) 32 % (12-44); MEAN CORPUSCULAR HEMOGLOBIN 30 pg (25-34); MEAN CORPUSCULAR HGB CONC 32 g/dL (32-36); MEAN CORPUSCULAR VOLUME 93 fL (80-99); MEAN PLATELET VOLUME 10.8 fL (9.0-12.2); MONOCYTES # (AUTO) 0.5 10^3/uL (0.0-1.0); MONOCYTES % (AUTO) 8 % (0-12); NEUTROPHILS % (AUTO) 50 % (42-75); PLATELET COUNT 185 10^3/uL (130-400); WHITE BLOOD COUNT 6.1 10^3/uL (4.3-11.0)
[2021-03-20 10:17] LABS: BUN/CREATININE RATIO 22; CALCIUM 8.6 MG/DL (8.5-10.1); CARBON DIOXIDE 29 MMOL/L (21-32); CHLORIDE 106 MMOL/L (98-107); CREATININE SERUM 0.77 MG/DL (0.60-1.30); GFR ESTIMATED > 60; GLUCOSE 99 MG/DL (70-105); POTASSIUM 3.9 MMOL/L (3.6-5.0); SODIUM 141 MMOL/L (135-145)
--- NOTE | 2021-03-20 10:19 | Diagnostic Imaging Report ---
Indication: Preop nasal lesion. Findings: There is a retrocardiac gastric hernia. The lungs themselves clear. Hilar mediastinal contours otherwise normal. No failure, effusion or pneumothorax. Impression: Retrocardiac hernia, otherwise negative. Dictated by: Dictated on workstation # [id number]
== END 2021-03-20 10:31 | disposition home or self-care (01) ==
LOC: PREOP 09:07
PROVIDERS: ATTEND Otolaryngology Otolaryngology/Facial Plastic Surgery
DX: Z01.812 Encounter for preprocedural laboratory examination (principal); Z01.810 Encounter for preprocedural cardiovascular examination; J34.89 Other specified disorders of nose and nasal sinuses; K44.9 Diaphragmatic hernia without obstruction or gangrene
CPT/HCPCS: 36415; 71046; 80048; 85025; 87081

== ENCOUNTER 2021-03-24 07:02 | Day surgery (SDC) | payer MEDICARE ==
[~2021-03-24] VITALS: Ht 167.7 cm; Wt 109.9 kg
[2021-03-24] VITALS (9 sets, daily range): BP systolic 121–142; BP diastolic 70–85
[~2021-03-24 07:02] MED LIST changes: +ASPI-999 PO; +LOSA25TA41 PO
[2021-03-24] MEDS ORDERED: ceFAZolin INJECTION 1,000 MG in WATER (STERILE) FOR INJECTION 10 ML IV ONE (07:45)
[2021-03-24] MEDS: LACTATED RINGERS 1,000 ML IV PRN ×2 (07:46→09:25)
--- NOTE | 2021-03-24 08:27 | Progress Note-Pre Operative ---
Pre-Operative Progress Note H&P Reviewed The H&P was reviewed, patient examined and no changes noted. Date Seen by Provider: Mar 24, 2021 Time Seen by Provider: 08:30 Date H&P Reviewed: Mar 24, 2021 Time H&P Reviewed: 08:30 Pre-Operative Diagnosis: Left Nasal Dorsum Lesion NIALL COBURN MD Mar 24, 2021 08:27
[2021-03-24] MEDS ORDERED: BSS 15 ML ONE (08:29)
[2021-03-24] MEDS ORDERED: MUPIROCIN 2% OINT 22 GM (BACTROBAN) TUBE ONE (08:29)
[2021-03-24] MEDS ORDERED: LIDOCAINE/EPI 1%-1:100,000 (XYLOCAINE) 20ML ONE (08:29)
[2021-03-24] MEDS ORDERED: proPOfol 200 MG/20 ML (DIPRIVAN) VIAL IV ONE (08:38)
[2021-03-24] MEDS ORDERED: MIDAZOLAM 2 MG/2 ML (VERSED) VIAL ONE (08:38)
[2021-03-24] MEDS ORDERED: LIDOCAINE PF 2% 5 ML (XYLOCAINE) VIAL ONE (08:38)
[2021-03-24] MEDS ORDERED: fentaNYL INJ 100 MCG/2 ML AMP ONE (08:38)
[2021-03-24] MEDS ORDERED: ONDANSETRON 4 MG/2 ML (SDV) Z0FRAN ONE (08:38)
--- NOTE | 2021-03-24 09:52 | Progress Note-Post Operative ---
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 Specimen(s) collected/removed left nasal dorsum lesion for NIALL Sanders MD Mar 24, 2021 09:52
[2021-03-24] MEDS ORDERED: SEVOFLURANE (ULTANE) 15 ML INHAL SOLN ONE (09:54)
[2021-03-24] MEDS ORDERED: ACETAMINOPHEN 325 MG TABLET PO PRN (10:00)
[2021-03-24] MEDS ORDERED: HYDROcodone/APAP 5 MG/325 MG (LORTAB) TAB PO PRN (10:00)
--- NOTE | 2021-03-24 10:06 | Anesthesia-General Post-Op ---
General Patient Condition Mental Status/LOC: Same as Preop Cardiovascular: Satisfactory Nausea/Vomiting: Absent Respiratory: Satisfactory Pain: Controlled Complications: Absent Post Op Complications Complications None Follow Up Care/Instructions Patient Instructions None needed. Anesthesia/Patient Condition Patient Condition Patient is doing well, no complaints, stable vital signs, no apparent adverse anesthesia problems. No complications reported per nursing. MARTA MAYS CRNA Mar 24, 2021 10:06
[2021-03-24] MEDS ORDERED: ONDANSETRON 4 MG/2 ML (SDV) Z0FRAN IVP PRN (10:15)
[2021-03-24] MEDS ORDERED: MEPERIDINE (DEMEROL) INJ 50 MG/ML IVP ONE (10:15)
[2021-03-24] MEDS ORDERED: morphine INJ 10 MG/ML 1ML (SYR OR VIAL) IVP ONE (10:15)
[2021-03-24] MEDS ORDERED: HYDROmorphone 2 MG/ML VIAL (DILAUDID) IV ONE (10:15)
[2021-03-24] MEDS ORDERED: CEPH500T PO (11:32)
[2021-03-24] MEDS ORDERED: ACHD5005 PO (11:32)
== END 2021-03-24 12:35 | disposition home or self-care (01) ==
LOC: SDC 07:02
PROVIDERS: ATTEND Otolaryngology Otolaryngology/Facial Plastic Surgery
DX: C44.311 Basal cell carcinoma of skin of nose (principal); I10 Essential (primary) hypertension; K21.9 Gastro-esophageal reflux disease without esophagitis; M19.90 Unspecified osteoarthritis, unspecified site; Z79.82 Long term (current) use of aspirin; Z79.899 Other long term (current) drug therapy; Z90.710 Acquired absence of both cervix and uterus; Z79.01 Long term (current) use of anticoagulants; Z80.9 Family history of malignant neoplasm, unspecified
CPT/HCPCS: 87081; 88305; 88331; 88332

== ENCOUNTER 2021-08-18 22:13 | Emergency (ER) | payer MEDICARE, OTHER ==
[~2021-08-18] VITALS: Ht 167 cm; Wt 104.0 kg
[~2021-08-18 22:13] MED LIST changes: +ACHD5005 PO; +CEPH500T PO
--- NOTE | 2021-08-18 23:02 | ED Cough/URI ---
General Chief Complaint: Fever-Adult/Adol Stated Complaint: FEVER,NAUSEA,DIZZINESS,LOSS OF APPETITE Source: patient History of Present Illness Date Seen by Provider: Aug 18, 2021 Time Seen by Provider: 22:45 Initial Comments PT ARRIVES VIA POV FROM HOME PT WITH KNOWN EXPOSURE TO COVID-19. PT CARES FOR GRANDCHILDREN AND GRANDSON TESTED + FOR COVID-19 LAST Saturday08/11/21. 2 OTHER GRANDCHILDREN AND PT'S DAUGHTER ALL LIVE IN SAME HOME, BUT OTHERS ARE NOT ILL. THEY HAVE NOT BEEN TESTED PT LIVES BY HERSELF BUT DAUGHTER AND GRANDCHILDREN LIVE NEARBY AND PT IS WITH THEM ALL THE TIME. PT BEGAN HAVING SYMPTOMS ON Saturday08/15/21 C/O FEVER UP TO 102 C/O NAUSEA, BUT NO VOMITING C/O LOSS OF APPETITE--STATES SHE HASN'T EATEN ANYTHING ALL WEEK, AND ONLY TAKING SIPS OF WATER-"JUST DIDN'T FEEL LIKE IT" STATES SHE IS VOIDING NORMALLY EVERY 2 HOURS C/O DIZZINESS C/O GENERALIZED WEAKNESS AND FATIGUE NO COUGH/CONGESTION NO SHORTNESS OF BREATH NO LOSS OF TASTE/SMELL NO DIARRHEA + HEADACHE + BODY ACHES STATES SHE HAS NOT TAKEN HER REGULAR MEDICATION FOR THE LAST 2-3 DAYS "JUST DIDN'T FEEL LIKE IT" HAS NOT HAD COVID-19 VACCINE OR FLU VACCINE PCP: DR. HEREDIA Allergies and Home Medications Allergies Coded Allergies: No Known Drug Allergies (Unverified , 01/19/20) Patient Home Medication List Home Medication List Reviewed: Yes Cephalexin (Cephalexin) 500 Mg Tablet, 500 MG PO TID Prescribed by: FREDERIC MILLER on 03/24/21 1132 Hydrocodone/Acetaminophen (Hydrocodone-Acetamin 5-325 mg) 1 Each Tablet, 1 TAB PO Q4H PRN for PAIN-MODERATE (5-7) Prescribed by: FREDERIC MILLER on 03/24/21 1132 Losartan Potassium (Losartan Potassium) 25 Mg Tablet, 25 MG PO DAILY, (Reported) Entered as Reported by: MARIA A GIRALDO on 03/20/21 0917 Metoprolol Tartrate (Metoprolol Tartrate) 25 Mg Tablet, 37.5 MG PO BID, (Reported) Entered as Reported by: KEANU HOLBROOK on 01/19/20 1503 Ondansetron (Ondansetron Odt) 8 Mg Tab.rapdis, 8 MG PO Q4H PRN for NAUSEA/VOMITING Prescribed by: RACHAEL LEDESMA on 08/19/21 0245 Pantoprazole Sodium (Pantoprazole Sodium) 40 Mg Tablet.dr, 40 MG PO DAILY, (Reported) Entered as Reported by: NORA JONES on 01/29/17 1845 Review of Systems Review of Systems Constitutional: see HPI, dizziness, fever, malaise, weakness EENTM: no symptoms reported Respiratory: no symptoms reported Cardiovascular: no symptoms reported Gastrointestinal: see HPI; No abdominal pain, No diarrhea; loss of appetite, nausea Genitourinary: no symptoms reported; No decreased output Musculoskeletal: see HPI (BODY ACHES) Skin: no symptoms reported Psychiatric/Neurological: See HPI, Headache Hematologic/Lymphatic: No Symptoms Reported Immunological/Allergic: no symptoms reported Past Aupmnxa-Lxvafc-Rigolr Hx Patient Social History Tobacco Use?: No Use of E-Cig and/or Vaping dev: No Substance use?: No Alcohol Use?: No Pt feels they are or have been: No Immunizations Up To Date First/Initial COVID19 Vaccinat: n/a Seasonal Allergies Seasonal Allergies: Yes Past Medical History Surgery/Hospitalization HX: botox injection in bladder, skin cancer removed, hysterectomy, HTN Surgeries: Yes (botox injection, bilat TKR) Bladder Surgery, Hysterectomy, Joint Replacement, Orthopedic Respiratory: No Currently Using CPAP: No Currently Using BIPAP: No Cardiac: Yes (DVT YEARS AGO) Deep Vein Thrombosis, Hypertension Neurological: No Sexually Transmitted Disease: No HIV/AIDS: No Genitourinary: No Gastrointestinal: Yes Gastroesophageal Reflux Musculoskeletal: Yes Arthritis Endocrine: No HEENT: No Cancer: Yes Skin Did You Recieve Any Treatments: Yes What Type of Treatment Did You: Surgical Intervention Psychosocial: No Integumentary: Yes (skin lesion nasal dorsum) Blood Disorders: No Adverse Reaction/Blood Tranf: No (HAS HAD BLOOD WITH NO REACTION) Family Medical History Arthritis 19 MOTHER Respiratory disorder 19 FATHER (lung cancer) Heart Disease, Cancer, COPD SOCIAL HISTORY: -SMOKING--DENIES USE -ETOH-DENIES USE -DRUGS--DENIES USE PAST SURGICAL HISTORY: -SKIN LESION REMOVAL FROM NOSE FOR SKIN CANCER -BILATERAL TOTAL KNEE REPLACEMENTS -HYSTERECTOMY -BOTOX INJECTIONS IN BLADDER Physical Exam Vital Signs - First Documented 08/18/21 22:54 Temp 37.6 Pulse 82 Resp 20 B/P (MAP) 191/114 (139) Pulse Ox 93 O2 Delivery Room Air Capillary Refill : Height: 5'6.00" Weight: 220lbs. 0.0oz. 99.760676xc; 39.07 BMI Method:Stated General Appearance: WD/WN, no apparent distress HEENT: PERRL/EOMI, normal ENT inspection, TMs normal Neck: normal inspection Respiratory: normal breath sounds, no respiratory distress, no accessory muscle use Cardiovascular: regular rate, rhythm, no edema, no JVD, no murmur Gastrointestinal: non tender, soft Extremities: normal inspection, normal capillary refill Neurologic/Psychiatric: agency service representative II-XII nml as tested, no motor/sensory deficits, alert, normal mood/affect, oriented x 3 Skin: normal color, warm/dry Focused Exam Lactate Level 08/18/21 22:50: Lactic Acid Level 1.64 Lactic Acid Level Laboratory Tests Test 08/18/21 22:50 Lactic Acid Level 1.64 MMOL/L (0.50-2.00) Progress/Results/Core Measures Suspected Sepsis SIRS Temperature: Pulse: Respiratory Rate: Laboratory Tests 08/18/21 22:50: White Blood Count 4.5 Blood Pressure / Mean: 08/18/21 22:50: Lactic Acid Level 1.64 Laboratory Tests 08/18/21 22:50: Creatinine 0.76, INR Comment 0.9, Platelet Count 113L, Total Bilirubin 0.3 Results/Orders Lab Results Laboratory Tests Test 08/18/21 22:50 08/18/21 22:57 08/18/21 23:50 Range/Units White Blood Count 4.5 4.3-11.0 10^3/uL Red Blood Count 4.74 3.80-5.11 10^6/uL Hemoglobin 14.2 11.5-16.0 g/dL Hematocrit 42 35-52 % Mean Corpuscular Volume 89 80-99 fL Mean Corpuscular Hemoglobin 30 25-34 pg Mean Corpuscular Hemoglobin Concent 34 32-36 g/dL Red Cell Distribution Width 12.9 10.0-14.5 % Platelet Count 113 L 130-400 10^3/uL Mean Platelet Volume 11.0 9.0-12.2 fL Immature Granulocyte % (Auto) 0 % Neutrophils (%) (Auto) 66 42-75 % Lymphocytes (%) (Auto) 25 12-44 % Monocytes (%) (Auto) 9 0-12 % Eosinophils (%) (Auto) 0 0-10 % Basophils (%) (Auto) 0 0-10 % Neutrophils # (Auto) 2.9 1.8-7.8 10^3/uL Lymphocytes # (Auto) 1.1 1.0-4.0 10^3/uL Monocytes # (Auto) 0.4 0.0-1.0 10^3/uL Eosinophils # (Auto) 0.0 0.0-0.3 10^3/uL Basophils # (Auto) 0.0 0.0-0.1 10^3/uL Immature Granulocyte # (Auto) 0.0 0.0-0.1 10^3/uL Percent Immature Platelet Fraction 3.9 0.0-7.6 % Erythrocyte Sedimentation Rate 22 0-30 MM/HR Prothrombin Time 12.5 12.2-14.7 SEC INR Comment 0.9 0.8-1.4 Activated Partial Thromboplast Time 29 24-35 SEC D-Dimer 1.36 H 0.00-0.49 UG/ML Sodium Level 139 135-145 MMOL/L Potassium Level 3.7 3.6-5.0 MMOL/L Chloride Level 104 98-107 MMOL/L Carbon Dioxide Level 21 21-32 MMOL/L Anion Gap 14 5-14 MMOL/L Blood Urea Nitrogen 15 7-18 MG/DL Creatinine 0.76 0.60-1.30 MG/DL Estimat Glomerular Filtration Rate 76 BUN/Creatinine Ratio 20 Glucose Level 146 H 70-105 MG/DL Lactic Acid Level 1.64 0.50-2.00 MMOL/L Calcium Level 8.7 8.5-10.1 MG/DL Corrected Calcium 8.9 8.5-10.1 MG/DL Total Bilirubin 0.3 0.1-1.0 MG/DL Aspartate Amino Transf (AST/SGOT) 41 H 5-34 U/L Alanine Aminotransferase (ALT/SGPT) 23 0-55 U/L Alkaline Phosphatase 70 40-136 U/L Lactate Dehydrogenase 354 H 125-220 U/L C-Reactive Protein High Sensitivity 3.67 H 0.00-0.50 MG/DL Total Protein 7.4 6.4-8.2 GM/DL Albumin 3.7 3.2-4.5 GM/DL Procalcitonin 0.05 <0.10 NG/ML Influenza Type A (RT-PCR) Not Detected Not Detecte Influenza Type B (RT-PCR) Not Detected Not Detecte SARS-CoV-2 RNA (RT-PCR) Detected H Not Detecte Urine Color YELLOW Urine Clarity CLEAR Urine pH 6.0 5-9 Urine Specific [place] >=1.030 1.016-1.022 Urine Protein 1+ H NEGATIVE Urine Glucose (UA) NEGATIVE NEGATIVE Urine Ketones 1+ H NEGATIVE Urine Nitrite NEGATIVE NEGATIVE Urine Bilirubin NEGATIVE NEGATIVE Urine Urobilinogen 0.2 < = 1.0 MG/DL Urine Leukocyte Esterase NEGATIVE NEGATIVE Urine RBC (Auto) NEGATIVE NEGATIVE Urine RBC 0-2 /HPF Urine WBC 5-10 H /HPF Urine Squamous Epithelial Cells 5-10 /HPF Urine Crystals NONE /LPF Urine Bacteria MODERATE H /HPF Urine Casts NONE /LPF Urine Mucus SMALL H /LPF Urine Culture Indicated CULTURE PENDING My Orders Orders - RACHAEL LEDESMA DO Influenza A And B By Pcr (08/18/21 22:42) Covid 19 Inhouse Test (08/18/21 22:42) Cbc With Automated Diff (08/18/21 23:05) Comprehensive Metabolic Panel (08/18/21 23:05) Fibrin Degradation Products (08/18/21 23:05) Procalcitonin (Pct) (08/18/21 23:05) Hs C Reactive Protein (08/18/21 23:05) Erythrocyte Sedimentation Rate (08/18/21 23:05) LDH (08/18/21 23:05) Blood Culture (08/18/21 23:05) Urinalysis (08/18/21 23:05) Urine Culture (08/18/21 23:05) Protime With Inr (08/18/21 23:05) Partial Thromboplastin Time (08/18/21 23:05) Vital Signs Adult Sepsis Patie Q15M (08/18/21 23:05) Remove Rings In Anticipation O (08/18/21 23:05) Lactic Acid Analyzer (08/18/21 23:05) Lactated Ringers (Lr 1000 Ml Iv Solution (08/18/21 23:15) Ed Iv/Invasive Line Start (08/18/21 23:05) Ondansetron Injection (Zofran Injectio (08/18/21 23:15) Chest 1 View, Ap/Pa Only (08/19/21 00:01) Ct Angio Chest W (08/19/21 00:01) Iohexol Injection (Omnipaque 350 Mg/Ml 1 (08/19/21 00:45) Received Contrast (Hold Metformin- Contr (08/19/21 00:45) Sodium Chloride Flush (Catheter Flush Sy (08/19/21 00:45) Ns (Ivpb) (Sodium Chloride 0.9% Ivpb Bag (08/19/21 00:45) Rx-Ondansetron Po (Rx-Zofran Po) (08/19/21 02:49) Medications Given in ED Current Medications Medications Dose Ordered Sig/Sage Route Start Time Stop Time Status Last Admin Dose Admin Iohexol 100 ml ONCE ONCE IV 08/19/21 00:45 08/19/21 00:46 DC 08/19/21 00:52 90 ML Lactated Ringer's 1,000 ml @ 0 mls/hr Q0M ONCE IV 08/18/21 23:15 08/18/21 23:16 DC 08/18/21 23:52 0 MLS/HR Ondansetron HCl 4 mg ONCE ONCE IVP 08/18/21 23:15 08/18/21 23:16 DC 08/18/21 23:52 4 MG Sodium Chloride 10 ml NEEDED PRN IV 08/19/21 00:45 08/19/21 00:52 10 ML Sodium Chloride 100 ml ONCE ONCE IV 08/19/21 00:45 08/19/21 00:46 DC 08/19/21 00:52 80 ML Vital Signs/I&O 08/18/21 22:54 Temp 37.6 Pulse 82 Resp 20 B/P (MAP) 191/114 (139) Pulse Ox 93 O2 Delivery Room Air Capillary Refill : Progress Note : Progress Note PLACED IN ISOLATION ROOM PPE WORN AT ALL TIMES COVID-19 TESTING PERFORMED GIVEN IV FLUIDS AND ZOFRAN WITH IMPROVEMENT IN SYMPTOMS NO DYSPNEA NO HYPOXIA NO COUGH NO DETERIORATION IN PT'S CONDITION DURING ER STAY DISCUSSED MONOCLONAL ANTIBODY TREATMENT--RISKS/BENEFITS EXPLAINED,AND PT WISHES TO PROCEED, ORDER FORM SENT TO PHARMACY. Diagnostic Imaging Comments CXR--?BIBASILAR INFILTRATES/ATELECTASIS--PENDING RADIOLOGIST REVIEW CT CHEST ANGIOGRAM--SCATTERED AREAS OF ILL-DEFINED PERIPHERAL GROUND GLASS OPACITY, CONSISTENT WITH COVID-1O PNEUMONIA. NO P.E. PER [facility] VIA FAX AT [phone] Reviewed: Reviewed by Me Departure Impression Primary Impression: Pneumonia due to COVID-19 virus Disposition: 01 HOME, SELF-CARE Condition: Stable Departure-Patient Inst. Decision time for Depature: 02:40 Referrals: ATUL HEREDIA MD (PCP/Family) Primary Care Physician Patient Instructions: Preventing the Spread of an Infectious Disease, COVID-19 (DC), Atypical Pneumonia (Mycoplasma and Viral) (DC), Bamlanivimab and Etesevimab FDA Fact Sheet Add. Discharge Instructions: LOTS OF CLEAR LIQUIDS--WATER, BROTH, JELLO, GATORADE BRATS DIET--BANANAS, RICE, APPLESAUCE, TOAST, SALTINES COATED ASPIRIN 325 MG DAILY OVER THE COUNTER MUCINEX DM FOR COUGH TAKE YOUR REGULAR MEDICATIONS PRESCRIBED PHARMACY DEPARTMENT WILL CALL YOU TO SCHEDULE YOUR MONOCLONAL ANTIBODY INFUSION FOLLOW UP WITH DR. HEREDIA IN 5-7 DAYS IF NO BETTER RETURN TO ER IF WORSE All discharge instructions reviewed with patient and/or family. Voiced understanding. Scripts Ondansetron (Ondansetron Odt) 8 Mg Tab.rapdis 8 MG PO Q4H PRN for NAUSEA/VOMITING, #10 TAB Prov: RACHAEL LEDESMA DO 08/19/21 RACHAEL LEDESMA DO Aug 18, 2021 23:02
[2021-08-18] MEDS ORDERED: ONDANSETRON 4 MG/2 ML (SDV) Z0FRAN IVP ONE (23:15)
[2021-08-18] MEDS ORDERED: LACTATED RINGERS 1,000 ML IV ONE (23:15)
[2021-08-18 23:17] LABS: EOSINOPHILS % (AUTO) 0 % (0-10); WHITE BLOOD COUNT 4.5 10^3/uL (4.3-11.0)
[2021-08-18 23:19] LABS: BASOPHILS % (AUTO) 0 % (0-10); HEMATOCRIT 42 % (35-52); HEMOGLOBIN 14.2 g/dL (11.5-16.0); LYMPHOCYTES # (AUTO) 1.1 10^3/uL (1.0-4.0); LYMPHOCYTES % (AUTO) 25 % (12-44); MEAN CORPUSCULAR HEMOGLOBIN 30 pg (25-34); MEAN CORPUSCULAR HGB CONC 34 g/dL (32-36); MEAN CORPUSCULAR VOLUME 89 fL (80-99); MONOCYTES # (AUTO) 0.4 10^3/uL (0.0-1.0); MONOCYTES % (AUTO) 9 % (0-12); NEUTROPHILS # (AUTO) 2.9 10^3/uL (1.8-7.8); NEUTROPHILS % (AUTO) 66 % (42-75); PLATELET COUNT 113 10^3/uL (130-400)
[2021-08-18 23:24] LABS: ALBUMIN 3.7 GM/DL (3.2-4.5); POTASSIUM 3.7 MMOL/L (3.6-5.0)
[2021-08-18 23:25] LABS: CALCIUM 8.7 MG/DL (8.5-10.1)
[2021-08-18 23:26] LABS: FIBRIN DEGRADATION PRODUCTS 1.36 UG/ML (0.00-0.49); INR 0.9 (0.8-1.4); PROTHROMBIN TIME PATIENT 12.5 SEC (12.2-14.7)
[2021-08-18 23:27] LABS: TOTAL PROTEIN 7.4 GM/DL (6.4-8.2)
[2021-08-18 23:28] LABS: BILIRUBIN,TOTAL 0.3 MG/DL (0.1-1.0)
[2021-08-18 23:30] LABS: CREATININE SERUM 0.76 MG/DL (0.60-1.30)
[2021-08-18 23:46] LABS: ERYTHROCYTE SEDIMENTATION RATE 22 MM/HR (0-30)
[2021-08-19 00:20] LABS: BILIRUBIN,URINE NEGATIVE (NEGATIVE); CLARITY,URINE CLEAR; COLOR,URINE YELLOW; GLUCOSE, URINE (UA) NEGATIVE (NEGATIVE); KETONES,URINE 1+ (NEGATIVE); LEUKOCYTE ESTERASE ,URINE NEGATIVE (NEGATIVE); NITRITE,URINE NEGATIVE (NEGATIVE); PROTEIN,URINE 1+ (NEGATIVE); RBC,URINE 0-2 /HPF
[2021-08-19 00:21] LABS: BACTERIA,URINE MODERATE /HPF
[2021-08-19] MEDS ORDERED: CATHETER FLUSH 10 ML SYR IV PRN (00:45)
[2021-08-19] MEDS ORDERED: IOHEXOL 350 MG/ML 100 ML (OMNIPAQUE 350) VIAL IV ONE (00:45)
[2021-08-19] MEDS ORDERED: HOLD METFORMIN - RECEIVED CONTRAST 20 ML VIAL IV SCH (00:45)
[2021-08-19] MEDS ORDERED: NS 100 ML (IVPB) BAG IV ONE (00:45)
[2021-08-19] MEDS ORDERED: ONDA8TAB13 PO (02:45)
[2021-08-19] MEDS ORDERED: RX-ONDANSETRON 4 MG ODT (ZOFRAN) PPK #4 PO STA (02:49)
[2021-08-19 03:00] VITALS: BP 120/96
--- NOTE | 2021-08-19 06:11 | Diagnostic Imaging Report ---
PROCEDURE: CT angiography of the chest with contrast. TECHNIQUE: Multiple contiguous axial images were obtained through the chest after uneventful bolus administration of intravenous contrast. 3D reconstructed CTA MIP acquisitions were also performed. Auto Exposure Controls were utilized during the CT exam to meet ALARA standards for radiation dose reduction. INDICATION: Covid-19 positive with fever, nausea, vomiting and diarrhea. No prior studies are available for comparison. Evaluation of the pulmonary arterial system is without evidence of thromboembolism. No filling defects are seen within central, lobar or segmental branches. The thoracic aorta is nonaneurysmal. No dissection is seen. There is a large hiatal hernia present. No pericardial or pleural fluid is identified. No axillary lymphadenopathy is seen. No mediastinal lymphadenopathy is identified. Mildly prominent lymph nodes in the araceli bilaterally, left greater, are noted, nonspecific. Parenchymal evaluation does show patchy groundglass peripheral based infiltrates bilateral upper lobes as well as in the lower lobes to a lesser degree. Upper abdomen does show large stone within the gallbladder. IMPRESSION: 1. No evidence of pulmonary embolism or acute aortic disease. 2. Mild hilar lymphadenopathy, left greater. This may be reactive. 3. Patchy groundglass infiltrates bilaterally consistent with Covid-19 pneumonia. 4. Large hiatal hernia. 5. Cholelithiasis. Dictated by: Dictated on workstation # [id number]
--- NOTE | 2021-08-19 06:12 | Diagnostic Imaging Report ---
INDICATION: Covid-19 positivity with fever, nausea, vomiting and diarrhea. TIME OF EXAM: 12:24 AM Heart is mildly enlarged. Lungs appear to be clear apart from some questionable minimal patchy infiltrate in the left midlung field. Right lung is clear. Right hemidiaphragm is mildly elevated. No effusion or pneumothorax is identified. Pulmonary vascularity is normal. There appears to be a large hiatal hernia. IMPRESSION: Cardiomegaly. There is a questionable minimal patchy infiltrate left midlung. Dictated by: Dictated on workstation # [id number]
== END 2021-08-19 03:00 | disposition home or self-care (01) ==
LOC: EDUNIT# 22:13 → ER 22:16
DX: U07.1 COVID-19 (principal); J12.82 Pneumonia due to coronavirus disease 2019; I10 Essential (primary) hypertension; K21.9 Gastro-esophageal reflux disease without esophagitis; Z79.899 Other long term (current) drug therapy
CPT/HCPCS: 36415; 71045; 71275; 80053; 81000; 83605; 83615; 84145; 85025; 85379; 85610; 85652; 85730; 86141; 87040; 87088; 87636

== ENCOUNTER 2021-08-24 09:38 | Outpatient (CLI) | payer MEDICARE ==
[~2021-08-24] VITALS: Ht 167.7 cm; Wt 104.0 kg
[~2021-08-24 09:38] MED LIST changes: +ONDA8TAB13 PO
[2021-08-24 09:46] VITALS: BP 144/92
[2021-08-24] MEDS ORDERED: BAMLANIVIMAB 700 MG/ETESEVIMAB 1,400 MG IN NS IV ONE ×3 (10:00)
[2021-08-24] MEDS ORDERED: ONDANSETRON 4 MG/2 ML (SDV) Z0FRAN IV PRN (10:00)
[2021-08-24] MEDS ORDERED: diphenhydrAMINE 50 MG/ML INJ (BENADRYL) IV PRN (10:00)
[2021-08-24] MEDS ORDERED: EPINEPHrine INJECTION 1 MG/ML AMP IM PRN (10:00)
[2021-08-24] MEDS ORDERED: ACETAMINOPHEN 500 MG TAB (TYLENOL) PO PRN (10:00)
[2021-08-24 11:02] VITALS: BP 149/87
== END 2021-08-24 10:55 | disposition home or self-care (01) ==
LOC: INFUSION 09:38
PROVIDERS: ATTEND Emergency Medicine
DX: U07.1 COVID-19 (principal)

== ENCOUNTER 2022-03-13 05:32 | Outpatient (CLI) | payer MEDICARE ==
[~2022-03-13] VITALS: Ht 167.7 cm; Wt 104.5 kg
[2022-03-15] MEDS ORDERED: NAPR-915 PO (09:10)
== END 2022-03-15 09:16 | disposition home or self-care (01) ==
LOC: PREOP 05:32
PROVIDERS: ATTEND Urology
DX: Z01.818 Encounter for other preprocedural examination (principal)

== ENCOUNTER 2022-03-20 06:02 | Day surgery (SDC) | payer MEDICARE ==
[~2022-03-20] VITALS: Ht 167 cm; Wt 104.5 kg
[2022-03-20] VITALS (9 sets, daily range): BP systolic 111–139; BP diastolic 72–87
[2022-03-20] MEDS ORDERED: cefTRIAXone 1 GM PRE-MIX 50 ML IV ONE ×2 (06:30)
[2022-03-20] MEDS ORDERED: LACTATED RINGERS 1,000 ML IV PRN (06:30)
[2022-03-20] MEDS ORDERED: ONONBOTOX 100 UNITS/NS 10 ML INJ NR ×2 (07:00)
[2022-03-20] MEDS ORDERED: LIDOCAINE PF 2% 5 ML (XYLOCAINE) VIAL ONE (07:03)
[2022-03-20] MEDS ORDERED: proPOfol 200 MG/20 ML (DIPRIVAN) VIAL IV ONE (07:03)
[2022-03-20] MEDS ORDERED: fentaNYL INJ 100 MCG/2 ML AMP ONE (07:03)
[2022-03-20] MEDS ORDERED: ONDANSETRON 4 MG/2 ML (SDV) Z0FRAN ONE (07:03)
[2022-03-20] MEDS ORDERED: MIDAZOLAM 2 MG/2 ML (VERSED) VIAL ONE (07:04)
[2022-03-20] MEDS ORDERED: 0.9% SODIUM CHLORIDE PF INJ 20 ML VIAL ONE (07:16)
--- NOTE | 2022-03-20 07:19 | Progress Note-Pre Operative ---
Pre-Operative Progress Note H&P Reviewed The H&P was reviewed, patient examined and no changes noted. Date Seen by Provider: Mar 20, 2022 Time Seen by Provider: 07:18 Date H&P Reviewed: Mar 20, 2022 Time H&P Reviewed: 07:18 Pre-Operative Diagnosis: SEVERE URGENCY WITH INCONTINENCE REFRACTORY TO MEDICAL TREATMENT SHAWN GODDARD MD Mar 20, 2022 07:19
--- NOTE | 2022-03-20 07:22 | Progress Note-Post Operative ---
Post-Operative Progess Note Surgeon (s)/Clamp Carrier Operator (s) Surgeon SHAWN GODDARD MD Clamp Carrier Operator: NONE Pre-Operative Diagnosis SEVERE URGENCY WITH INCONTINENCE REFRACTORY TO MEDICAL TREATMENT Post-Operative Diagnosis SAME Procedure & Operative Findings Date of Procedure 03/20/22 Procedure Performed/Findings ENDOSCOPIC BOTOX INJECTIONS Anesthesia Type GENERAL Estimated Blood Loss Estimated blood loss (mL): NEGLIGIBLE Specimens/Packing Specimens Removed NONE Packing: NONE SHAWN GODDARD MD Mar 20, 2022 07:22
--- NOTE | 2022-03-20 07:24 | Discharge Inst-Urology ---
Discharge Inst-Urology Reconcile Patient Problems Problems Reviewed?: Yes Final Diagnosis SEVERE URGENCY WITH INCONTINENCE Patient Instructions/Follow Up Plan/Assessment/Instructions Please make appointment to been seen in office in 4 weeks. Keep bowels soft and moving Increase oral fluids for 48 hours and then as needed. Diet and Activity as tolerated. If questions or concerns contact your physician Or seek help at emergency department. SHAWN GODDARD MD Mar 20, 2022 07:24
[2022-03-20] MEDS ORDERED: NITR-65 PO (07:43)
[2022-03-20] MEDS ORDERED: PHEN-640 PO (07:45)
[2022-03-20] MEDS ORDERED: SEVOFLURANE (ULTANE) 15 ML INHAL SOLN ONE (07:45)
--- NOTE | 2022-03-20 08:57 | Anesthesia-General Post-Op ---
General Patient Condition Mental Status/LOC: Same as Preop Cardiovascular: Satisfactory Nausea/Vomiting: Absent Respiratory: Satisfactory Pain: Controlled Complications: Absent Post Op Complications Complications None Follow Up Care/Instructions Patient Instructions None needed. Anesthesia/Patient Condition Patient Condition Patient is doing well, no complaints, stable vital signs, no apparent adverse anesthesia problems. No complications reported per nursing. STEPHANIE CASTRO CRNA Mar 20, 2022 08:57
--- NOTE | 2022-03-20 17:23 | OPERATIVE REPORT ---
DATE OF SERVICE: 03/20/2022 PREOPERATIVE DIAGNOSES: Severe urgency with urge incontinence. POSTOPERATIVE DIAGNOSES: Severe urgency with urge incontinence. OPERATION PERFORMED: Botox endoscopic injection. SURGEON: Christiano Goddard MD ANESTHESIA: General. COMPLICATIONS: None. DESCRIPTION OF PROCEDURE: Under satisfactory general anesthesia, the patient in lithotomy position, genitalia were prepped and draped in the usual sterile fashion. Cystoscope was introduced in the bladder, it was emptied and then half filled 100 units of Botox units was injected using the described technique. There was minimal bleeding. Bladder was emptied and the cystoscope was removed. The patient tolerated the procedure and anesthesia well and was sent to recovery room in stable condition. Job ID: [id number] DocumentID: [id number] Dictated Date: 03/20/2022 07:52:16 Fisher Trot Line Date: 03/20/2022 17:22:59 Dictated By: CHRISTIANO GODDARD MD
== END 2022-03-20 10:05 | disposition home or self-care (01) ==
LOC: SDC 06:02
PROVIDERS: ATTEND Urology
DX: N39.41 Urge incontinence (principal); K21.9 Gastro-esophageal reflux disease without esophagitis
CPT/HCPCS: 87081

== ENCOUNTER → 2023-08-06 | Outpatient (CLI) | payer MEDICARE ==
[~2023-08-06] MED LIST changes: -OXYB5TAB13 PO; +OXYB5TAB14 PO
[2023-08-06 08:22] LABS: BASOPHILS # (AUTO) 0.1 10^3/uL (0.0-0.1); BASOPHILS % (AUTO) 1 % (0-10); EOSINOPHILS # (AUTO) 0.6 10^3/uL (0.0-0.3); EOSINOPHILS % (AUTO) 9 % (0-10); HEMATOCRIT 39 % (35-52); HEMOGLOBIN 12.9 g/dL (11.5-16.0); LYMPHOCYTES # (AUTO) 1.8 10^3/uL (1.0-4.0); LYMPHOCYTES % (AUTO) 28 % (12-44); MEAN CORPUSCULAR HEMOGLOBIN 31 pg (25-34); MEAN CORPUSCULAR HGB CONC 33 g/dL (32-36); MEAN CORPUSCULAR VOLUME 94 fL (80-99); MONOCYTES # (AUTO) 0.5 10^3/uL (0.0-1.0); MONOCYTES % (AUTO) 8 % (0-12); NEUTROPHILS # (AUTO) 3.4 10^3/uL (1.8-7.8); NEUTROPHILS % (AUTO) 54 % (42-75); PLATELET COUNT 201 10^3/uL (130-400); WHITE BLOOD COUNT 6.3 10^3/uL (4.3-11.0)
[2023-08-06 08:32] LABS: ALBUMIN 3.8 GM/DL (3.2-4.5); POTASSIUM 3.5 MMOL/L (3.6-5.0)
[2023-08-06 08:33] LABS: CALCIUM 8.9 MG/DL (8.5-10.1)
[2023-08-06 08:34] LABS: TOTAL PROTEIN 6.8 GM/DL (6.4-8.2)
[2023-08-06 08:36] LABS: BILIRUBIN,TOTAL 0.5 MG/DL (0.1-1.0)
[2023-08-06 08:38] LABS: CREATININE SERUM 0.79 MG/DL (0.60-1.30)
[2023-08-06 09:04] LABS: CHOLESTEROL 178 MG/DL (< 200); HDL CHOLESTEROL 62 MG/DL (40-60); TRIGLYCERIDES 111 MG/DL (<150); VLDL CHOLESTEROL 22 MG/DL (5-40)
== END ==
LOC: LAB 08:03
PROVIDERS: ATTEND Physician Assistant
DX: Z00.01 Encounter for general adult medical examination with abnormal findings (principal); Z12.31 Encounter for screening mammogram for malignant neoplasm of breast; Z28.21 Immunization not carried out because of patient refusal; I10 Essential (primary) hypertension; K21.9 Gastro-esophageal reflux disease without esophagitis
CPT/HCPCS: 36415; 80053; 80061; 84443; 85025